=== PATIENT | male | born 1955 | race Caucasian/White ===

== ENCOUNTER 2020-04-29 14:01 | Outpatient (REF) | payer MEDICARE, MEDICAID, SELFPAY | END 2020-04-29 14:02 | disposition home or self-care (01) | LOC: HO.LNP 14:01 | PROVIDERS: Visit Provider Internal Medicine | DX: Z20.828 Contact with and (suspected) exposure to other viral communicable diseases (principal) | CPT/HCPCS: 87635 ==

== ENCOUNTER 2020-06-05 10:27 | Outpatient (REF) | payer MEDICARE, MEDICAID, SELFPAY ==
[2020-06-05 11:19] LABS: MANUAL DIFF FLAG NO
[2020-06-05 11:29] LABS: Basophils Absolute Auto 0.1 X10*3/uL (0.0-0.2); Basophils Percent Auto 0.7 % (0-2); Eosinophils Absolute Auto 0.3 X10*3/uL (0.0-0.4); Eosinophils Percent Auto 2.2 % (0-4); Hematocrit 40.7 % (42-52); Hemoglobin 13.5 g/dl (14.0-18.0); Imm Gran Abs Auto 0.04 X10*3/uL (0.00-0.03); Imm Gran Pct Auto 0.3 % (0.0-0.4); Lymphocytes Absolute Auto 3.4 X10*3/uL (1.2-4.9); Lymphocytes Percent Auto 28.2 % (20-40); Mean Corpuscular HGB Conc 33.2 g/dl (31.0-36.0); Mean Corpuscular Hemoglobin 31.7 pg (27.0-33.0); Mean Corpuscular Volume 95.5 fL (80-98); Mean Platelet Volume 10.6 fL (9.4-12.4); Monocytes Percent Auto 8.2 % (2-11); Neutrophils Absolute Auto 7.4 X10*3/uL (2.0-8.3); Neutrophils Percent Auto 60.4 % (45-73); Platelet Count 394 X10*3/uL (160-400); Red Blood Count 4.26 X10*6/uL (4.60-5.80); Red Cell Distribution Width 13.5 % (11.0-16.0); White Blood Count 12.2 X10*3/uL (4.8-10.8)
[2020-06-05 12:13] LABS: Alanine Aminotransferase 10 U/L (0-40); Albumin Level 4.4 g/dL (3.5-5.0); Alkaline Phosphatase 67 U/L (39-117); Anion Gap 12 (12-20); Aspartate Amino Transferase 15 U/L (5-37); Bilirubin Total 0.4 mg/dL (0.0-1.0); Blood Urea Nitrogen 22 mg/dL (9-16); Calcium 9.3 mg/dL (8.4-10.2); Carbon Dioxide 31 mmol/L (22-29); Chloride 102 mmol/L (96-108); Cholesterol 196 mg/dL; Estimated Glomerular Filt Rate > 60; Glucose Fasting 141 mg/dL (60-99); HDL Cholesterol 34 mg/dL; LDL Cholesterol Calculated 137 mg/dl; Potassium 4.5 mmol/l (3.3-5.1); Sodium 140 mmol/L (135-145); Total Protein 7.4 g/dL (6.5-8.0); Triglycerides 129 mg/dL
[2020-06-05 12:46] LABS: Vitamin B12 > 2000 pg/mL (200-900)
[2020-06-05 13:37] LABS: Prostate Specific Antigen < 0.05 ng/mL (<0.05-4.0)
== END 2020-06-05 10:28 | disposition home or self-care (01) ==
LOC: HO.LAB 10:27
PROVIDERS: Visit Provider Internal Medicine
DX: I10 Essential (primary) hypertension (principal); I25.10 Atherosclerotic heart disease of native coronary artery without angina pectoris; E11.9 Type 2 diabetes mellitus without complications
CPT/HCPCS: 36415; 80053; 80061; 82607; 84153; 85025

== ENCOUNTER → 2020-08-06 10:03 | Outpatient (BNVA) | payer MEDICARE, MEDICAID, SELFPAY | PROVIDERS: PCP Internal Medicine; Referring Provider Internal Medicine; Visit Provider Internal Medicine Endocrinology, Diabetes & Metabolism | DX: Z76.89 Persons encountering health services in other specified circumstances (principal) | CPT/HCPCS: Q3014 ==

== ENCOUNTER 2020-09-03 11:16 | Outpatient (REF) | payer MEDICARE, MEDICAID, SELFPAY ==
[2020-09-03 13:56] LABS: Anion Gap 14 (12-20); Blood Urea Nitrogen 15 mg/dL (9-16); Calcium 9.3 mg/dL (8.4-10.2); Carbon Dioxide 33 mmol/L (22-29); Chloride 99 mmol/L (96-108); Estimated Glomerular Filt Rate > 60; Glucose Random 138 mg/dL (60-115); Sodium 141 mmol/L (135-145)
[2020-09-03 13:57] LABS: Estimated Average Glucose 163 mg/dL; Hemoglobin A1c % 7.3 %
== END 2020-09-03 11:17 | disposition home or self-care (01) ==
LOC: HO.10HDL 11:16
PROVIDERS: Visit Provider Internal Medicine
DX: E11.9 Type 2 diabetes mellitus without complications (principal); I25.10 Atherosclerotic heart disease of native coronary artery without angina pectoris; I10 Essential (primary) hypertension
CPT/HCPCS: 36415; 80048; 83036

== ENCOUNTER 2020-09-16 11:05 | Outpatient (REF) | payer MEDICARE, MEDICAID, SELFPAY | END 2020-09-16 11:06 | disposition home or self-care (01) | LOC: HO.LAB 11:05 | PROVIDERS: PCP Internal Medicine; Visit Provider Internal Medicine | DX: Z20.822 Contact with and (suspected) exposure to COVID-19 (principal) | CPT/HCPCS: 36415; C9803; U0003; U0005 ==

== ENCOUNTER → 2020-11-05 10:31 | Outpatient (BNVA) | payer MEDICARE, MEDICAID, SELFPAY | PROVIDERS: PCP Internal Medicine; Visit Provider Internal Medicine Endocrinology, Diabetes & Metabolism | DX: E11.21 Type 2 diabetes mellitus with diabetic nephropathy (principal); E11.42 Type 2 diabetes mellitus with diabetic polyneuropathy; E11.319 Type 2 diabetes mellitus with unspecified diabetic retinopathy without macular edema; I10 Essential (primary) hypertension; E78.5 Hyperlipidemia, unspecified | CPT/HCPCS: 82947; 99212 ==

== ENCOUNTER 2021-03-05 15:48 | Emergency (ER) | payer MEDICARE, MEDICAID, SELFPAY ==
--- NOTE | ~2021-03-05 | XR_ITS ---
EXAMINATION: XR ABDOMEN COMPLETE CLINICAL INDICATION: Obstruction. COMPARISON: None TECHNIQUE: 2 views of the abdomen. FINDINGS: Ostomy device right side of abdomen. No abnormal bowel dilatation. No significant air-fluid levels on the upright view. Nonobstructive bowel pattern. Small volume of scattered stool in the colon. No radiopaque urinary calculi. Transpedicular screws, vertical stabilization bars and disc spacer cages at lower lumbar spine XR/XR abdomen min 2V IMPRESSION: No acute abnormality. No bowel obstruction.
[2021-03-05 16:02] VITALS: BP 154/92; BP 169/82; PULSE 62; PULSE 68; RESP 18; TEMP 36.8; O2SAT 100; O2SAT 99; BMI 26.6
--- NOTE | 2021-03-05 16:04 | ED.ABDPAIN ---
HPI - Abdominal Pain General Chief Complaint: Abdominal Pain Stated Complaint: WEAKNESS Time Seen by Provider: 03/05/21 16:04 Source: patient Mode of arrival: EMS Limitations: no limitations History of Present Illness HPI narrative: Epigastric pain since last night has a history of gastritis. EMS gave the patient zofran. Patient denies being scoped or prior ulceration MD elicited complaint: abdominal pain Pertinent past history: gastritis Onset (ago): week(s) Pain Consistency: constant Location: epigastric Severity: mild Quality: cramping Radiation: none Migration to: no migration Exacerbating factors: eating Associated symptoms: nausea and vomiting Related Data Home Medications Medication Instructions Recorded Confirmed lisinopril 2.5 mg tablet 2.5 mg PO DAILY tab 08/06/20 11/05/20 metoprolol succinate 50 mg 50 mg PO DAILY tab 08/06/20 11/05/20 tablet,extended release 24 hr nifedipine 60 mg tablet,extended 60 mg PO tab 08/06/20 11/05/20 release 24 hr omeprazole 20 mg capsule,delayed 20 mg PO cap 08/06/20 11/05/20 release oxycodone-acetaminophen 5 mg-325 tab PO 08/06/20 11/05/20 mg tablet zolpidem 5 mg tablet 5 mg PO tab 08/06/20 11/05/20 Previous Rx's Medication Instructions Recorded blood sugar diagnostic #100 ea 11/05/20 lancets (OneTouch UltraSoft #100 ea 11/05/20 Lancets) metformin 500 mg tablet,extended 500 mg PO DAILY 30 Days #30 tab 11/05/20 release 24 hr pen needle, diabetic 32 gauge x #50 ea 11/05/2032 simvastatin 40 mg tablet 40 mg PO BEDTIME #90 tab 11/05/20 blood sugar diagnostic (Accu-Chek #100 ea 11/06/20 Vanessa Plus test strp) blood-glucose meter (Accu-Chek #1 ea 11/06/20 Vanessa Plus Meter) lancets (Accu-Chek Fastclix Lancet #100 ea 11/06/20 Drum) Accu-Chek Guide Glucose Meter #1 ea NS 11/13/20 (blood-glucose meter) Accu-Chek Guide test strips (blood #100 ea NS 11/13/20 sugar diagnostic) dulaglutide 1.5 mg/0.5 mL 1.5 mg SUBCUT QWEEK 30 Days #2.5 ml 12/04/20 subcutaneous pen injector (Trulicity) Vivian Guaman U-100 Insulin 100 25 unit SUBCUT QPM 30 Days #15 ml 03/04/21 unit/mL (3 mL) subcutaneous NS (insulin glargine) sucralfate 100 mg/mL oral 10 ml PO BID #1000 ml 03/05/21 suspension (Carafate) Allergies Allergy/AdvReac Type Severity Reaction Status Date / Time No Known Allergies Allergy Verified 03/05/21 16:05 [No Known Allergies*] Review of Systems Constitutional: Reports no additional constitutional complaints Eyes: Reports no additional eye complaints Denies dizziness Cardiovascular: Reports no additional cardiovascular complaints Respiratory: Reports as per HPI Gastrointestinal: Reports no additional gastrointestinal complaints Musculoskeletal: Reports no additional musculoskeletal complaints Skin/Breast: Denies rash Reports system reviewed and no additional complaints, except as documented, Denies dizziness and Denies Sensory deficit (Neuro) Psychiatric: Denies anxiety Physical Exam Vital Signs: Vital Signs: Last Vital Signs Temp 98.9 F 03/05/21 17:25 Pulse 61 03/05/21 18:23 Resp 16 03/05/21 17:25 BP 146/76 H 03/05/21 18:23 Pulse Ox 98 03/05/21 18:23 Body Mass Index 26.6 Const: Other: Patient moaning but not appearing ill Nutritional Appearance: average body habitus Orientation/consciousness: oriented to person and patient oriented x3 Limitations: no limitations HENMT: Head: Yes normal to inspection Ears: external ears normal General nose exam: Normal external nose present Mouth: Normal oral and palatal mucosa present and oropharynx normal Throat: Yes posterior oropharynx normal Eyes: General: appearance normal, both eyes and all related structures Neck: Other: supple Neck: Yes normal visual inspection Chest: Chest palpation & inspection: normal inspection of the chest Resp: Auscultation: clear to auscultation bilaterally Cardio: Jugular venous distension: no JVD Rate: regular rate Rhythm: regular rhythm Heart sounds: S1 normal heart sound present and S2 normal heart sound present GI: Other: soft abdomen but having epigastric pain Auscultation: normal bowel sounds : General: Yes no CVA tenderness Back/Spine/Pelvis: Back: no CVA tenderness Skin: General skin exam: no rashes or lesions noted Neuro: General: oriented to person and patient oriented x3 Cranial nerves: Yes CN's II-XII intact bilaterally Motor exam (neuro): 5/5 motor strength present throughout Sensory Exam: No Sensory deficit (Neuro) Extrem: General: Yes normal to inspection Psych: Appearance: grossly normal Course Reevaluation(s) Reevaluation #1: patient with labs at baseline, no obstruction, no liver elevation will dc on carafate for gastritis Time: 19:06 MDM - Abdominal Pain Lab Data Result diagrams: 03/05/21 17:46 03/05/21 17:46 Labs: Lab Results 03/05/21 03/05/21 03/05/21 Range/Units 16:13 17:46 17:46 WBC 12.1 H (4.8-10.8) X10*3/uL RBC 4.02 L (4.60-5.80) X10*6/uL Hgb 13.1 L (14.0-18.0) g/dl Hct 36.3 L (42-52) % MCV 90.3 (80-98) fL MCH 32.6 (27.0-33.0) pg MCHC 36.1 H (31.0-36.0) g/dl RDW 13.1 (11.0-16.0) % Plt Count 281 D (160-400) X10*3/uL MPV 10.4 (9.4-12.4) fL Immature Gran % (Auto) 0.4 (0.0-0.4) % Neut % (Auto) 83.7 H (45-73) % Lymph % (Auto) 11.6 L (20-40) % [place] % (Auto) 4.1 (2-11) % Eos % (Auto) 0.0 (0-4) % Baso % (Auto) 0.2 (0-2) % Lymph # (Auto) 1.4 (1.2-4.9) X10*3/uL [place] # (Auto) 0.5 (0.1-1.2) X10*3/uL Eos # (Auto) 0.0 (0.0-0.4) X10*3/uL Baso # (Auto) 0.0 (0.0-0.2) X10*3/uL Abs Immat Gran (auto) 0.05 H (0.00-0.03) X10*3/uL Absolute Neuts (auto) 10.1 H (2.0-8.3) X10*3/uL Absolute Nucleated RBC 0.000 (0.0-0.012) X10*3/uL Nucleated RBC % (auto) 0.0 (0.0-0.2) /100WBC Sodium 139 (135-145) mmol/L Potassium 3.2 L D (3.3-5.1) mmol/L Chloride 101 (96-108) mmol/L Carbon Dioxide 25 (22-29) mmol/L Anion Gap 16 (12-20) BUN 16 (9-16) mg/dL Creatinine 1.04 (0.5-1.4) mg/dL Estim Creat Clear Calc 72.7 Estimated GFR > 60 POC Glucose 159 H (60-115) mg/dL Random Glucose 105 (60-115) mg/dL Calcium 9.6 (8.4-10.2) mg/dL Total Bilirubin 0.6 (0.0-1.0) mg/dL Direct Bilirubin 0.2 (0.0-0.5) mg/dL AST 13 (5-37) U/L ALT 9 (0-40) U/L Alkaline Phosphatase 74 (39-117) U/L Total Protein 7.7 (6.5-8.0) g/dL Albumin 4.4 (3.5-5.0) g/dL Lipase 14 (8-78) U/L Imaging Data Abdominal x-ray: My impression: no obstruction Discharge Plan Discharge Clinical Impression: Gastritis Qualifiers: Gastritis type: other gastritis Chronicity: chronic Gastritis bleeding: without bleeding Qualified Code(s): K29.50 - Unspecified chronic gastritis without bleeding Patient Disposition: Home, Self-Care Instructions: Gastritis (ED) Prescriptions: New sucralfate [Carafate] 100 mg/mL suspension 10 ml PO BID Qty: 1000 RF: 0 No Action (DME) Accu-Chek Vanessa Plus test strp Strip See Rx Instructions .MEDSUPPLY Qty: 100 RF: 6 (DME) lancets [Accu-Chek Fastclix Lancet Drum] Misc See Rx Instructions .MEDSUPPLY Qty: 100 RF: 6 (DME) blood-glucose meter [Accu-Chek Vanessa Plus Meter] Misc See Rx Instructions .ROUTE .MEDSUPPLY Qty: 1 RF: 0 (DME) blood-glucose meter [Accu-Chek Guide Glucose Meter] Misc See Rx Instructions .ROUTE .MEDSUPPLY Qty: 1 RF: 0 (DME) Accu-Chek Guide test strips Strip See Rx Instructions .ROUTE .MEDSUPPLY Qty: 100 RF: 6 Trulicity 1.5 mg/0.5 mL pen injector 1.5 mg subcut QWEEK 30 Days Qty: 2.5 RF: 6 Basaglar KwikPen U-100 Insulin 100 unit/mL (3 mL) insulin pen 25 unit subcut QPM 30 Days Qty: 15 RF: 4 oxycodone-acetaminophen 5-325 mg tablet PO RF: 0 lisinopril 2.5 mg tablet 2.5 mg PO DAILY RF: 0 metoprolol succinate 50 mg tablet extended release 24 hr 50 mg PO DAILY RF: 0 nifedipine 60 mg tablet extended release 24hr 60 mg PO RF: 0 omeprazole 20 mg capsule,delayed release(DR/EC) 20 mg PO RF: 0 zolpidem 5 mg tablet 5 mg PO RF: 0 (DME) blood sugar diagnostic Strip See Rx Instructions .ROUTE .MEDSUPPLY Qty: 100 RF: 6 (DME) lancets [OneTouch UltraSoft Lancets] Misc See Rx Instructions .ROUTE .MEDSUPPLY Qty: 100 RF: 6 metformin 500 mg tablet extended release 24 hr 500 mg PO DAILY 30 Days Qty: 30 RF: 6 (DME) pen needle, diabetic 32 gauge x 5/32 needle See Rx Instructions ea subcut .MEDSUPPLY Qty: 50 RF: 5 simvastatin 40 mg tablet 40 mg PO BEDTIME Qty: 90 RF: 1 PMFSH Past Medical History Medical History Diabetes type 2, controlled Diabetic nephropathy associated with type 2 diabetes mellitus Diabetic polyneuropathy associated with type 2 diabetes mellitus Diabetic retinopathy associated with type 2 diabetes mellitus Dyslipidemia Hypertension Surgical History History of back surgery Hx of bladder cancer Hx of ileostomy Hx of nephrostomy Family History Family History Father No problems noted. Mother No problems noted. Social History Social History Patient Tobacco Use Status: Never used Tobacco Use of substances other than those prescribed or required for medical reasons: No Advance Directives: No Advance Directives Information Provided: Yes
[2021-03-05 16:17] LABS: Glucose, Whole Blood 159 mg/dL (60-115)
[2021-03-05] MEDS: 0.9 % Sodium Chloride 1,000 ML 999 ML IVCONT ×2 (16:30→17:48)
[2021-03-05] MEDS: Lidocaine HCl Viscous 2 % 15 ML SOLUTION MUCOUS MEM (17:03)
[2021-03-05] MEDS: PHENobarb/Hyoscy/Atropine/Scop 10 ML ELIXIR PO (17:03)
[2021-03-05] MEDS: Magnesium Hydrox/Alum Hydrox 30 ML ORAL.SUSP PO (17:03)
[2021-03-05] MEDS: Pantoprazole Sodium 40 MG/10 ML VIAL IVPUSH (17:04)
[2021-03-05 17:25] VITALS: BP 159/99; PULSE 67; RESP 16; TEMP 37.2; O2SAT 100
[2021-03-05 17:53] LABS: Basophils Percent Auto 0.2 % (0-2); Mean Platelet Volume 10.4 fL (9.4-12.4); Neutrophils Percent Auto 83.7 % (45-73); PLT CLUMP 1; Red Cell Distribution Width 13.1 % (11.0-16.0); SCAN SMEAR FLAG 1
[2021-03-05 17:55] LABS: Hematocrit 36.3 % (42-52); Hemoglobin 13.1 g/dl (14.0-18.0); Imm Gran Abs Auto 0.05 X10*3/uL (0.00-0.03); Imm Gran Pct Auto 0.4 % (0.0-0.4); Lymphocytes Absolute Auto 1.4 X10*3/uL (1.2-4.9); Lymphocytes Percent Auto 11.6 % (20-40); Mean Corpuscular HGB Conc 36.1 g/dl (31.0-36.0); Mean Corpuscular Hemoglobin 32.6 pg (27.0-33.0); Mean Corpuscular Volume 90.3 fL (80-98); Monocytes Absolute Auto 0.5 X10*3/uL (0.1-1.2); Monocytes Percent Auto 4.1 % (2-11); Neutrophils Absolute Auto 10.1 X10*3/uL (2.0-8.3); Platelet Count 281 X10*3/uL (160-400); Red Blood Count 4.02 X10*6/uL (4.60-5.80); White Blood Count 12.1 X10*3/uL (4.8-10.8)
[2021-03-05] MEDS: Dicyclomine HCl 10 MG CAPSULE PO (18:21)
[2021-03-05] MEDS: Sucralfate Oral Suspension 1 GM/10 ML ORAL.SUSP PO (18:21)
[2021-03-05 18:23] VITALS: BP 146/76; PULSE 61; O2SAT 98
[2021-03-05 18:32] LABS: Alanine Aminotransferase 9 U/L (0-40); Albumin Level 4.4 g/dL (3.5-5.0); Alkaline Phosphatase 74 U/L (39-117); Anion Gap 16 (12-20); Aspartate Amino Transferase 13 U/L (5-37); Bilirubin Direct 0.2 mg/dL (0.0-0.5); Bilirubin Total 0.6 mg/dL (0.0-1.0); Blood Urea Nitrogen 16 mg/dL (9-16); Calcium 9.6 mg/dL (8.4-10.2); Carbon Dioxide 25 mmol/L (22-29); Chloride 101 mmol/L (96-108); Creatinine Clr Calc Pharmacy 72.7; Estimated Glomerular Filt Rate > 60; Glucose Random 105 mg/dL (60-115); Lipase 14 U/L (8-78); Potassium 3.2 mmol/L (3.3-5.1); Sodium 139 mmol/L (135-145); Total Protein 7.7 g/dL (6.5-8.0)
== END 2021-03-05 19:31 | disposition home or self-care (01) ==
PROVIDERS: Emergency Provider Emergency Medicine; PCP Internal Medicine
DX: K29.50 Unspecified chronic gastritis without bleeding (principal); R10.13 Epigastric pain; Z79.899 Other long term (current) drug therapy
CPT/HCPCS: 36415; 74019; 80048; 80076; 82947; 83690; 85025; 96361; 96374; 99284

== ENCOUNTER → 2021-03-20 12:46 | Outpatient (BNVA) | payer MEDICARE, MEDICAID, SELFPAY | PROVIDERS: PCP Internal Medicine; Visit Provider Urology | DX: E11.69 Type 2 diabetes mellitus with other specified complication (principal); N52.1 Erectile dysfunction due to diseases classified elsewhere; C67.9 Malignant neoplasm of bladder, unspecified | CPT/HCPCS: 99202 ==

== ENCOUNTER 2021-04-07 10:29 | Outpatient (REF) | payer MEDICARE, SELFPAY | END 2021-04-07 10:30 | disposition home or self-care (01) | LOC: HO.LAB 10:29 | PROVIDERS: Visit Provider Internal Medicine | DX: Z20.822 Contact with and (suspected) exposure to COVID-19 (principal) | CPT/HCPCS: C9803; U0003; U0005 ==

== ENCOUNTER 2021-04-14 12:27 | Outpatient (REF) | payer MEDICARE, MEDICAID, SELFPAY | END 2021-04-14 12:28 | disposition home or self-care (01) | LOC: HO.LAB 12:27 | PROVIDERS: PCP Internal Medicine; Visit Provider Internal Medicine | DX: Z20.822 Contact with and (suspected) exposure to COVID-19 (principal) | CPT/HCPCS: C9803; U0003; U0005 ==

== ENCOUNTER 2021-05-25 13:05 | Emergency (ER) | payer MEDICARE, MEDICAID, SELFPAY ==
--- NOTE | ~2021-05-25 | CT_ITS ---
EXAMINATION: CT ABDOMEN AND PELVIS WITHOUT CONTRAST CLINICAL INFORMATION: Abdominal pain with nausea and vomiting and leukocytosis COMPARISON: CT abdomen pelvis 03/20/2019 TECHNIQUE: Multidetector volumetric imaging was performed from the superior aspect of the liver through the pubic symphysis. Sagittal and coronal reformatted images were obtained on the technologist's workstation. This CT examination was performed using dose optimization techniques as appropriate, variously including the following: *Automated exposure control *Adjustment of mA and/or kV according to patient size (this includes techniques or standardized protocols for targeted exams where dose is matched to indication/reason for exam; i.e. extremities or head) *Use of iterative reconstruction technique DLP: 489 mGy-cm FINDINGS: LUNG BASES: The visualized lung bases are unremarkable. LIVER, GALLBLADDER, AND BILIARY TREE: The liver is normal in size, shape, and attenuation. No focal hepatic lesion or biliary ductal dilatation is present. The gallbladder is unremarkable with no evidence of radiopaque gallstones, gallbladder wall thickening, or obvious pericholecystic inflammatory changes. PANCREAS: Unremarkable. SPLEEN: Unremarkable. ADRENAL GLANDS: Unremarkable. 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 There is mild bilateral pelvocaliectasis and mild ureterectasis which is increased slightly since the prior study. For example, a right lower pole infundibulum had measured about 7 mm now measuring 10 mm. A left lower pole infundibulum that had measured 10 mm now measures 11 mm. No definite calculi are seen in the renal collecting systems although vascular calcifications are present. The kidneys are normal in size, shape, and attenuation. No renal masses are seen. There is mild nonspecific perinephric stranding. GASTROINTESTINAL TRACT: Small hiatal hernia is present. The small and large bowel are unremarkable aside from postoperative changes related to ileal loop. There is no evidence of bowel obstruction. The appendix is unremarkable. ABDOMINAL WALL: No hernia is seen. Please see discussion above regarding ureterostomy LYMPH NODES: No retroperitoneal lymphadenopathy. VASCULAR: Calcific atherosclerotic changes present in the aorta and iliofemoral vessels without aneurysm. PELVIC VISCERA: Surgically absent OSSEOUS STRUCTURES: Degenerative changes present in the spine. Again seen are posterior pedicular screws present at L4 and S1 with interbody disc devices at L4-L5 and L5-S1. CT/CT abdomen pelvis wo con IMPRESSION: 1. An acute cause for the patient's abdominal pain, nausea, vomiting and elevated white count has not been found with certainty. 2. There is some minimal increase in some chronic collecting system dilatation of questionable significance.
[2021-05-25 13:13] VITALS: BP 127/83; PULSE 78; O2SAT 95
[2021-05-25 13:15] VITALS: BP 153/64; PULSE 78; RESP 16; O2SAT 98; BMI 27.0
[2021-05-25 14:56] LABS: Basophils Absolute Auto 0.1 X10*3/uL (0.0-0.2); Basophils Percent Auto 0.2 % (0-2); Hematocrit 42.7 % (42.0-52.0); Hemoglobin 14.7 g/dl (14.0-18.0); Imm Gran Abs Auto 0.13 X10*3/uL (0.00-0.03); Imm Gran Pct Auto 0.5 % (0.0-0.4); Lymphocytes Absolute Auto 1.7 X10*3/uL (1.2-4.9); Lymphocytes Percent Auto 7.2 % (20-40); MANUAL DIFF FLAG SCAN; Mean Corpuscular HGB Conc 34.4 g/dl (31.0-36.0); Mean Corpuscular Hemoglobin 32.2 pg (27.0-33.0); Mean Corpuscular Volume 93.4 fL (80.0-98.0); Mean Platelet Volume 9.7 fL (9.4-12.4); Monocytes Absolute Auto 1.3 X10*3/uL (0.1-1.2); Monocytes Percent Auto 5.6 % (2-11); Neutrophils Absolute Auto 20.42 x10*3/uL (2.0-8.3); Neutrophils Percent Auto 86.5 % (45-73); Platelet Count 376 X10*3/uL (160-400); Red Blood Count 4.57 X10*6/uL (4.60-5.80); Red Cell Distribution Width 13.6 % (11.0-16.0); SCAN SMEAR FLAG 1; White Blood Count 23.6 X10*3/uL (4.8-10.8)
[2021-05-25 15:12] LABS: Alanine Aminotransferase 8 U/L (0-40); Albumin Level 4.7 g/dL (3.5-5.0); Alkaline Phosphatase 88 U/L (39-117); Anion Gap 16 (12-20); Aspartate Amino Transferase 11 U/L (5-37); Bilirubin Total 0.5 mg/dL (0.0-1.0); Blood Urea Nitrogen 24 mg/dL (9-16); Calcium 10.1 mg/dL (8.4-10.2); Carbon Dioxide 30 mmol/L (22-29); Chloride 98 mmol/L (96-108); Creatinine Clr Calc Pharmacy 53.3; Estimated Glomerular Filt Rate 52; Glucose Random 162 mg/dL (60-115); Potassium 4.2 mmol/L (3.3-5.1); Sodium 140 mmol/L (135-145); Total Protein 8.4 g/dL (6.5-8.0)
[2021-05-25 15:14] LABS: COVID-19 Test Negative (Negative)
[2021-05-25 15:18] LABS: SLIDE REVIEW VERIFIED
[2021-05-25 16:10] VITALS: BP 114/68; PULSE 104; RESP 18; TEMP 37.7; O2SAT 96
--- NOTE | 2021-05-25 16:20 | ED.NAVMDI ---
HPI - Nausea/Vomiting/Diarrhea General Chief complaint: Nausea/Vomiting/Diarrhea Stated complaint: abd pain Time Seen by Provider: 05/25/21 16:15 Source: patient, family (Spouse) and EMS Mode of arrival: EMS Limitations: no limitations History of Present Illness HPI Narrative: 65-year-old male history of gastritis, came in with epigastric pain for few days, with vomiting, patient is known history of gastritis, patient decline of having upper GI endoscopy, patient is complaining of epigastric pain and right-sided abdominal pain, patient also for the past couple days been having loose stool bowel movement with no bleeding, patient with good appetite but unable to eat because of the discomfort in the epigastric pain. Related Data Previous Rx's Medication Instructions Recorded blood sugar diagnostic #100 ea 11/05/20 pen needle, diabetic 32 gauge x #50 ea 11/05/20 blood sugar diagnostic (Accu-Chek #100 ea 11/06/20 Vanessa Plus test strp) blood-glucose meter (Accu-Chek #1 ea 11/06/20 Vanessa Plus Meter) lancets (Accu-Chek Fastclix Lancet #100 ea 11/06/20 Drum) Accu-Chek Guide Glucose Meter #1 ea NS 11/13/20 (blood-glucose meter) Accu-Chek Guide test strips (blood #100 ea NS 11/13/20 sugar diagnostic) lancets (OneTouch UltraSoft #100 ea 03/24/21 Lancets) Vivian Guaman U-100 Insulin 100 25 unit SUBCUT QPM 30 Days #8 05/12/21 unit/mL (3 mL) subcutaneous syringe NS (insulin glargine) dulaglutide 1.5 mg/0.5 mL 1.5 mg SUBCUT QWEEK 90 Days #6.5 ml 05/12/21 subcutaneous pen injector (Trulicity) lisinopril 2.5 mg tablet 2.5 mg PO DAILY 90 Days #90 tab 05/12/21 metformin 500 mg tablet,extended 500 mg PO DAILY 90 Days #90 tab 05/12/21 release 24 hr metoprolol succinate 50 mg 50 mg PO DAILY 90 Days #90 tab 05/12/21 tablet,extended release 24 hr nifedipine 60 mg tablet,extended 60 mg PO DAILY 90 Days #90 tab 05/12/21 release 24 hr omeprazole 20 mg capsule,delayed 20 mg PO DAILY 90 Days #90 cap 05/12/21 release oxycodone-acetaminophen 5 mg-325 1 tab PO BID PRN 30 Days #60 tab 05/12/21 mg tablet simvastatin 40 mg tablet 40 mg PO BEDTIME 90 Days #90 tab 05/12/21 sucralfate 1 gram tablet (Carafate) 1 g PO BID 90 Days #180 tab 05/12/21 zolpidem 5 mg tablet 5 mg PO BEDTIME 90 Days #90 tab 05/12/21 Allergies Allergy/AdvReac Type Severity Reaction Status Date / Time No Known Allergies Allergy Verified 05/12/21 15:38 [No Known Allergies*] Review of Systems Review of Systems: All other systems are reviewed and are negative Constitutional: Reports as per HPI and Reports no additional constitutional complaints Eyes: Reports as per HPI and Reports no additional eye complaints Reports system reviewed and no additional complaints, except as documented Cardiovascular: Reports as per HPI and Reports no additional cardiovascular complaints Respiratory: Reports as per HPI and Reports no additional respiratory complaints Gastrointestinal: Reports as per HPI and Reports no additional gastrointestinal complaints Genitourinary: Reports no additional female genitourinary complaints Musculoskeletal: Reports no additional musculoskeletal complaints Skin/Breast: Reports system reviewed and no additional complaints, except as docu Psychiatric: Reports no additional psychiatric complaints Endocrine: Reports no additional endocrine complaints Hematologic/Lymphatic: Reports no additional hematologic/lymphatic complaints Allergic/Immunologic: Reports no additional allergic/immunologic complaints Reports system reviewed and no additional complaints, except as documented and Reports Abnormal speech present [facility] Past Medical History Medical History Diabetes type 2, controlled Diabetic nephropathy associated with type 2 diabetes mellitus Diabetic polyneuropathy associated with type 2 diabetes mellitus Diabetic retinopathy associated with type 2 diabetes mellitus Dyslipidemia Hypertension Surgical History History of back surgery History of lumbar fusion Hx of bladder cancer Hx of ileostomy Hx of nephrostomy Family History Family History Father No problems noted. Mother No problems noted. Social History Social History Housing: Apartment Alcohol intake: never Patient Tobacco Use Status: Former Tobacco user Years Smoked: quit 2010 Second Hand Smoke Exposure: Yes Use of substances other than those prescribed or required for medical reasons: No Advance Directives: No Advance Directives Information Provided: No service: No Current occupational status: disabled Physical Exam Vital Signs: Vital Signs: Last Vital Signs Temp 100.0 F 05/25/21 18:40 Pulse 85 05/25/21 18:40 Resp 18 05/25/21 18:40 BP 123/63 05/25/21 18:40 Pulse Ox 95 05/25/21 18:40 Body Mass Index 27.0 Vital signs have been reviewed as appeared to be correct. Blood pressure normal. Heart rate is elevated Respiration rate normal. Temperature normal. Oxygen saturation normal. Appearance: Alert. Oriented X3. No acute distress. Head: Normal external exam. Normocephalic. Atraumatic. No Grace signs noted. No raccoon eyes noted Eyes: PERRLA. EOMI. Conjunctiva and sclera normal. Eyelids normal. ENT: TM's Normal. Pharynx normal. Uvula midline. Moist mucous membranes. No trismus noted. No drooling noted. No muffled voice noted. Neck: Normal inspection. Neck supple. FROM. No adenopathy. Thyroid Normal. No meningeal signs. No neck mass noted. CVS: Normal heart rate and rhythm. Heart sound normal. No murmurs noted. Pulses normal throughout. Respiratory: No respiratory distress. Painless inspiration. Breath sounds normal. No wheezes/rales/rhonchi noted. Chest nontender. No accessory muscle usage noted or decreased air movement noted. Abdomen: Soft, mild tenderness in the epigastric area, no rebound tenderness, no guarding. Bowel sounds normal in all 4 quadrants. No distention noted. No organomegaly noted. No visible injury noted. Right-sided nephrostomy tube is intact. Back: No CVA tenderness. Full range of motion noted. Skin: Skin warm and dry. Normal skin color. Normal skin turgor. No rashes/lesions/lacerations noted. Extremities: No lower extremity edema. Extremities exhibit normal range of motion. Extremities nontender. Neuro: Oriented X 3. Cranial nerve exam: II-XII are grossly intact No motor deficit. No sensory deficit. Reflexes normal. Course Course Course Narrative: Assessment and plan. 65-year-old male came in for a day of epigastric abdominal pain, no nausea or vomiting, patient in the emergency department received Pepcid in the emergency department, and Zofran with IV fluid hydration, patient now feels better able to tolerate p.o. intake, patient has a low-grade fever of 100, and leukocytosis. CT of the abdomen pelvis has no explanation of the patient's symptoms, patient has nephrostomy tube which is only way to collect urine which is more than likely to be contaminated, clinically no obvious source of patient's leukocytosis or low-grade fever, patient is feeling better, able to tolerate p.o. intake, patient was offered overnight observation in the hospital but would like to go home and follow up with his doctors. MDM - Nausea/Vomiting/Diarrhea Medical Records Attestation: I reviewed the patient's medical records. Lab Data Attestation: I reviewed the patient's lab results. Result diagrams: 05/25/21 14:50 05/25/21 14:50 Labs: Lab Results 05/25/21 05/25/21 05/25/21 Range/Units 14:50 14:50 14:50 WBC 23.6 H (4.8-10.8) X10*3/uL RBC 4.57 L (4.60-5.80) X10*6/uL Hgb 14.7 (14.0-18.0) g/dl Hct 42.7 (42.0-52.0) % MCV 93.4 (80.0-98.0) fL MCH 32.2 (27.0-33.0) pg MCHC 34.4 (31.0-36.0) g/dl RDW 13.6 (11.0-16.0) % Plt Count 376 (160-400) X10*3/uL MPV 9.7 (9.4-12.4) fL Immature Gran % (Auto) 0.5 H (0.0-0.4) % Neut % (Auto) 86.5 H (45-73) % Lymph % (Auto) 7.2 L (20-40) % [place] % (Auto) 5.6 (2-11) % Eos % (Auto) 0.0 (0-4) % Baso % (Auto) 0.2 (0-2) % Lymph # (Auto) 1.7 (1.2-4.9) X10*3/uL [place] # (Auto) 1.3 H (0.1-1.2) X10*3/uL Eos # (Auto) 0.0 (0.0-0.4) X10*3/uL Baso # (Auto) 0.1 (0.0-0.2) X10*3/uL Abs Immat Gran (auto) 0.13 H (0.00-0.03) X10*3/uL Absolute Neuts (auto) 20.42 H (2.0-8.3) x10*3/uL Absolute Nucleated RBC 0.000 (0.0-0.012) X10*3/uL Nucleated RBC % (auto) 0.0 (0.0-0.2) /100WBC Smear Tech's Comments VERIFIED Sodium 140 (135-145) mmol/L Potassium 4.2 D (3.3-5.1) mmol/L Chloride 98 (96-108) mmol/L Carbon Dioxide 30 H (22-29) mmol/L Anion Gap 16 (12-20) BUN 24 H (9-16) mg/dL Creatinine 1.37 (0.5-1.4) mg/dL Estim Creat Clear Calc 53.3 Estimated GFR 52 Random Glucose 162 H D (60-115) mg/dL Calcium 10.1 (8.4-10.2) mg/dL Total Bilirubin 0.5 (0.0-1.0) mg/dL AST 11 (5-37) U/L ALT 8 (0-40) U/L Alkaline Phosphatase 88 (39-117) U/L Total Protein 8.4 H (6.5-8.0) g/dL Albumin 4.7 (3.5-5.0) g/dL COVID-19 (CECILE) Negative (Negative) COVID-19 Clin Com See Note Imaging Data CT scan - abdomen: Radiologist's impression: 1.? An acute cause for the patient's abdominal pain, nausea, vomiting and elevated white count has not been found with certainty. 2.? There is some minimal increase in some chronic collecting system dilatation of questionable significance. Discharge Plan Discharge Clinical Impression: Abdominal pain, Leukocytosis Patient Disposition: Home, Self-Care Instructions: Abdominal Pain (ED) Additional Instructions: Return to the ED if he have fever or chills. Seek immediate medical attention for abdominal pain. Prescriptions: No Action (DME) Accu-Chek Vanessa Plus test strp Strip See Rx Instructions .MEDSUPPLY Qty: 100 RF: 6 (DME) lancets [Accu-Chek Fastclix Lancet Drum] Misc See Rx Instructions .MEDSUPPLY Qty: 100 RF: 6 (DME) blood-glucose meter [Accu-Chek Vanessa Plus Meter] Misc See Rx Instructions .ROUTE .MEDSUPPLY Qty: 1 RF: 0 (DME) blood-glucose meter [Accu-Chek Guide Glucose Meter] Misc See Rx Instructions .ROUTE .MEDSUPPLY Qty: 1 RF: 0 (DME) Accu-Chek Guide test strips Strip See Rx Instructions .ROUTE .MEDSUPPLY Qty: 100 RF: 6 (DME) lancets [OneTouch UltraSoft Lancets] Misc See Rx Instructions .ROUTE .MEDSUPPLY Qty: 100 RF: 6 Basaglar KwikPen U-100 Insulin 100 unit/mL (3 mL) insulin pen 25 unit subcut QPM 30 Days Qty: 8 RF: 3 Trulicity 1.5 mg/0.5 mL pen injector 1.5 mg subcut QWEEK 90 Days Qty: 6.5 RF: 3 lisinopril 2.5 mg tablet 2.5 mg PO DAILY 90 Days Qty: 90 RF: 3 metformin 500 mg tablet extended release 24 hr 500 mg PO DAILY 90 Days Qty: 90 RF: 3 metoprolol succinate 50 mg tablet extended release 24 hr 50 mg PO DAILY 90 Days Qty: 90 RF: 3 nifedipine 60 mg tablet extended release 24hr 60 mg PO DAILY 90 Days Qty: 90 RF: 3 omeprazole 20 mg capsule,delayed release(DR/EC) 20 mg PO DAILY 90 Days Qty: 90 RF: 3 simvastatin 40 mg tablet 40 mg PO BEDTIME 90 Days Qty: 90 RF: 3 sucralfate [Carafate] 1 gram tablet 1 g PO BID 90 Days Qty: 180 RF: 3 zolpidem 5 mg tablet 5 mg PO BEDTIME 90 Days Qty: 90 RF: 0 oxycodone-acetaminophen 5-325 mg tablet 1 tab PO BID PRN (Reason: pain) 30 Days Qty: 60 RF: 0 (DME) blood sugar diagnostic Strip See Rx Instructions .ROUTE .MEDSUPPLY Qty: 100 RF: 6 (DME) pen needle, diabetic 32 gauge x 5/32 needle See Rx Instructions ea subcut .MEDSUPPLY Qty: 50 RF: 5 Referrals: Clare Benitez MD [Physician] - 2 days Po,Yue Dasilva MD [Primary Care Provider] - 2 days
[2021-05-25] MEDS: 0.9 % Sodium Chloride 1,000 ML 999 ML IVCONT (16:24)
[2021-05-25] MEDS: Famotidine/PF 20 MG/2 ML VIAL IVPUSH (16:27)
[2021-05-25] MEDS: ondansetron HCL 4 MG/2 ML VIAL IVPUSH (16:27)
[2021-05-25] MEDS: Lidocaine HCl Viscous 2 % 15 ML SOLUTION MUCOUS MEM (16:27)
[2021-05-25 18:40] VITALS: BP 123/63; PULSE 85; RESP 18; TEMP 37.8; O2SAT 95
[2021-05-25] MEDS: Acetaminophen 325 MG TABLET 650 MG PO (19:34)
== END 2021-05-25 19:45 | disposition home or self-care (01) ==
PROVIDERS: Emergency Provider Emergency Medicine; PCP Internal Medicine
DX: R10.13 Epigastric pain (principal); D72.829 Elevated white blood cell count, unspecified; R11.2 Nausea with vomiting, unspecified; R19.7 Diarrhea, unspecified; E11.9 Type 2 diabetes mellitus without complications; I10 Essential (primary) hypertension; E78.5 Hyperlipidemia, unspecified; Z20.822 Contact with and (suspected) exposure to COVID-19; Z79.4 Long term (current) use of insulin; Z79.899 Other long term (current) drug therapy
CPT/HCPCS: 36415; 74176; 80053; 85025; 87635; 96361; 96374; 96375; 99284; J2405

== ENCOUNTER 2021-05-26 10:59 | Outpatient (REF) | payer MEDICARE, SELFPAY ==
--- NOTE | ~2021-05-26 | XR_ITS ---
EXAMINATION: XR BILATERAL HANDS XR BILATERAL KNEES XR LUMBAR SPINE CLINICAL INFORMATION: Pain. COMPARISON: Hand studies of 08/23/2015. 03/03/2016 lumbar spine. TECHNIQUE: AP and lateral views of each knee. 4 views of the lumbar spine. 3 views of each hand. FINDINGS: Right Hand: Views of the right hand demonstrate patient to be status post 5th metacarpal fracture. There is narrowing of the 5th carpometacarpal joint. There is significant narrowing of the 1st carpometacarpal joint with degenerative spurring. Findings are essentially unchanged from previous examination of 08/23/2015. Subchondral cyst formation is seen involving the 2nd and 3rd metacarpal heads. Marginal spurring is seen involving the 1st and 2nd distal interphalangeal joints. There is mild spurring base of the 3rd proximal phalanx, most likely posttraumatic. No acute fracture or dislocation is evident. Left Hand: Views of the left hand demonstrate significant degenerative change of the 1st carpometacarpal joint with prominent spurring. No acute fracture or dislocation is evident. Subchondral cyst formation is seen involving the head of the 3rd metacarpal. There is mild marginal joint space spurring of the 2nd and 3rd distal interphalangeal joints. Left Knee: AP and lateral views of the left knee do not demonstrate any evidence of acute fracture or dislocation. Knee joint spaces are maintained. No effusion is seen. Vascular calcifications present. Right Knee: AP and lateral views of the right knee do not demonstrate any evidence of acute fracture or dislocation. Knee joint spaces are maintained. There is some mild spurring of the superior patella site of insertion of the quadriceps tendon. Arterial vascular calcifications present. Lumbar Spine: Views of the lumbar spine demonstrate 5 [id number] lumbar vertebrae. There is pedicle screw and dong fixation L4 and S1 with disc spaces seen at the L4-L5 and L5-S1 spaces. The hardware appears intact. No acute fracture is appreciated. There is disc space narrowing with spurring present L1-L4. There is some spurring of the sacroiliac joints without evidence of fusion or widening. Patient is status post previous right abdominal surgery. XR/XR knee RT 2V IMPRESSION: No significant change in degenerative change of the hands as described above. No significant bony abnormality or effusion of the knees identified. Stable postoperative change of the lumbar spine with hardware appearing intact. No evidence of acute fracture. Multilevel degenerative disc disease with spurring.
--- NOTE | ~2021-05-26 | XR_ITS ---
EXAMINATION: XR BILATERAL HANDS XR BILATERAL KNEES XR LUMBAR SPINE CLINICAL INFORMATION: Pain. COMPARISON: Hand studies of 08/23/2015. 03/03/2016 lumbar spine. TECHNIQUE: AP and lateral views of each knee. 4 views of the lumbar spine. 3 views of each hand. FINDINGS: Right Hand: Views of the right hand demonstrate patient to be status post 5th metacarpal fracture. There is narrowing of the 5th carpometacarpal joint. There is significant narrowing of the 1st carpometacarpal joint with degenerative spurring. Findings are essentially unchanged from previous examination of 08/23/2015. Subchondral cyst formation is seen involving the 2nd and 3rd metacarpal heads. Marginal spurring is seen involving the 1st and 2nd distal interphalangeal joints. There is mild spurring base of the 3rd proximal phalanx, most likely posttraumatic. No acute fracture or dislocation is evident. Left Hand: Views of the left hand demonstrate significant degenerative change of the 1st carpometacarpal joint with prominent spurring. No acute fracture or dislocation is evident. Subchondral cyst formation is seen involving the head of the 3rd metacarpal. There is mild marginal joint space spurring of the 2nd and 3rd distal interphalangeal joints. Left Knee: AP and lateral views of the left knee do not demonstrate any evidence of acute fracture or dislocation. Knee joint spaces are maintained. No effusion is seen. Vascular calcifications present. Right Knee: AP and lateral views of the right knee do not demonstrate any evidence of acute fracture or dislocation. Knee joint spaces are maintained. There is some mild spurring of the superior patella site of insertion of the quadriceps tendon. Arterial vascular calcifications present. Lumbar Spine: Views of the lumbar spine demonstrate 5 [id number] lumbar vertebrae. There is pedicle screw and dong fixation L4 and S1 with disc spaces seen at the L4-L5 and L5-S1 spaces. The hardware appears intact. No acute fracture is appreciated. There is disc space narrowing with spurring present L1-L4. There is some spurring of the sacroiliac joints without evidence of fusion or widening. Patient is status post previous right abdominal surgery. XR/XR knee LT 2V IMPRESSION: No significant change in degenerative change of the hands as described above. No significant bony abnormality or effusion of the knees identified. Stable postoperative change of the lumbar spine with hardware appearing intact. No evidence of acute fracture. Multilevel degenerative disc disease with spurring.
--- NOTE | ~2021-05-26 | XR_ITS ---
EXAMINATION: XR BILATERAL HANDS XR BILATERAL KNEES XR LUMBAR SPINE CLINICAL INFORMATION: Pain. COMPARISON: Hand studies of 08/23/2015. 03/03/2016 lumbar spine. TECHNIQUE: AP and lateral views of each knee. 4 views of the lumbar spine. 3 views of each hand. FINDINGS: Right Hand: Views of the right hand demonstrate patient to be status post 5th metacarpal fracture. There is narrowing of the 5th carpometacarpal joint. There is significant narrowing of the 1st carpometacarpal joint with degenerative spurring. Findings are essentially unchanged from previous examination of 08/23/2015. Subchondral cyst formation is seen involving the 2nd and 3rd metacarpal heads. Marginal spurring is seen involving the 1st and 2nd distal interphalangeal joints. There is mild spurring base of the 3rd proximal phalanx, most likely posttraumatic. No acute fracture or dislocation is evident. Left Hand: Views of the left hand demonstrate significant degenerative change of the 1st carpometacarpal joint with prominent spurring. No acute fracture or dislocation is evident. Subchondral cyst formation is seen involving the head of the 3rd metacarpal. There is mild marginal joint space spurring of the 2nd and 3rd distal interphalangeal joints. Left Knee: AP and lateral views of the left knee do not demonstrate any evidence of acute fracture or dislocation. Knee joint spaces are maintained. No effusion is seen. Vascular calcifications present. Right Knee: AP and lateral views of the right knee do not demonstrate any evidence of acute fracture or dislocation. Knee joint spaces are maintained. There is some mild spurring of the superior patella site of insertion of the quadriceps tendon. Arterial vascular calcifications present. Lumbar Spine: Views of the lumbar spine demonstrate 5 [id number] lumbar vertebrae. There is pedicle screw and dong fixation L4 and S1 with disc spaces seen at the L4-L5 and L5-S1 spaces. The hardware appears intact. No acute fracture is appreciated. There is disc space narrowing with spurring present L1-L4. There is some spurring of the sacroiliac joints without evidence of fusion or widening. Patient is status post previous right abdominal surgery. XR/XR lumbar spine 2-3V IMPRESSION: No significant change in degenerative change of the hands as described above. No significant bony abnormality or effusion of the knees identified. Stable postoperative change of the lumbar spine with hardware appearing intact. No evidence of acute fracture. Multilevel degenerative disc disease with spurring.
--- NOTE | ~2021-05-26 | XR_ITS ---
EXAMINATION: XR BILATERAL HANDS XR BILATERAL KNEES XR LUMBAR SPINE CLINICAL INFORMATION: Pain. COMPARISON: Hand studies of 08/23/2015. 03/03/2016 lumbar spine. TECHNIQUE: AP and lateral views of each knee. 4 views of the lumbar spine. 3 views of each hand. FINDINGS: Right Hand: Views of the right hand demonstrate patient to be status post 5th metacarpal fracture. There is narrowing of the 5th carpometacarpal joint. There is significant narrowing of the 1st carpometacarpal joint with degenerative spurring. Findings are essentially unchanged from previous examination of 08/23/2015. Subchondral cyst formation is seen involving the 2nd and 3rd metacarpal heads. Marginal spurring is seen involving the 1st and 2nd distal interphalangeal joints. There is mild spurring base of the 3rd proximal phalanx, most likely posttraumatic. No acute fracture or dislocation is evident. Left Hand: Views of the left hand demonstrate significant degenerative change of the 1st carpometacarpal joint with prominent spurring. No acute fracture or dislocation is evident. Subchondral cyst formation is seen involving the head of the 3rd metacarpal. There is mild marginal joint space spurring of the 2nd and 3rd distal interphalangeal joints. Left Knee: AP and lateral views of the left knee do not demonstrate any evidence of acute fracture or dislocation. Knee joint spaces are maintained. No effusion is seen. Vascular calcifications present. Right Knee: AP and lateral views of the right knee do not demonstrate any evidence of acute fracture or dislocation. Knee joint spaces are maintained. There is some mild spurring of the superior patella site of insertion of the quadriceps tendon. Arterial vascular calcifications present. Lumbar Spine: Views of the lumbar spine demonstrate 5 qhx-eue-qnicedo lumbar vertebrae. There is pedicle screw and dong fixation L4 and S1 with disc spaces seen at the L4-L5 and L5-S1 spaces. The hardware appears intact. No acute fracture is appreciated. There is disc space narrowing with spurring present L1-L4. There is some spurring of the sacroiliac joints without evidence of fusion or widening. Patient is status post previous right abdominal surgery. XR/XR hand LT 2V IMPRESSION: No significant change in degenerative change of the hands as described above. No significant bony abnormality or effusion of the knees identified. Stable postoperative change of the lumbar spine with hardware appearing intact. No evidence of acute fracture. Multilevel degenerative disc disease with spurring.
--- NOTE | ~2021-05-26 | XR_ITS ---
EXAMINATION: XR BILATERAL HANDS XR BILATERAL KNEES XR LUMBAR SPINE CLINICAL INFORMATION: Pain. COMPARISON: Hand studies of 08/23/2015. 03/03/2016 lumbar spine. TECHNIQUE: AP and lateral views of each knee. 4 views of the lumbar spine. 3 views of each hand. FINDINGS: Right Hand: Views of the right hand demonstrate patient to be status post 5th metacarpal fracture. There is narrowing of the 5th carpometacarpal joint. There is significant narrowing of the 1st carpometacarpal joint with degenerative spurring. Findings are essentially unchanged from previous examination of 08/23/2015. Subchondral cyst formation is seen involving the 2nd and 3rd metacarpal heads. Marginal spurring is seen involving the 1st and 2nd distal interphalangeal joints. There is mild spurring base of the 3rd proximal phalanx, most likely posttraumatic. No acute fracture or dislocation is evident. Left Hand: Views of the left hand demonstrate significant degenerative change of the 1st carpometacarpal joint with prominent spurring. No acute fracture or dislocation is evident. Subchondral cyst formation is seen involving the head of the 3rd metacarpal. There is mild marginal joint space spurring of the 2nd and 3rd distal interphalangeal joints. Left Knee: AP and lateral views of the left knee do not demonstrate any evidence of acute fracture or dislocation. Knee joint spaces are maintained. No effusion is seen. Vascular calcifications present. Right Knee: AP and lateral views of the right knee do not demonstrate any evidence of acute fracture or dislocation. Knee joint spaces are maintained. There is some mild spurring of the superior patella site of insertion of the quadriceps tendon. Arterial vascular calcifications present. Lumbar Spine: Views of the lumbar spine demonstrate 5 [id number]-iqq-brbdckr lumbar vertebrae. There is pedicle screw and dong fixation L4 and S1 with disc spaces seen at the L4-L5 and L5-S1 spaces. The hardware appears intact. No acute fracture is appreciated. There is disc space narrowing with spurring present L1-L4. There is some spurring of the sacroiliac joints without evidence of fusion or widening. Patient is status post previous right abdominal surgery. XR/XR hand RT 2V IMPRESSION: No significant change in degenerative change of the hands as described above. No significant bony abnormality or effusion of the knees identified. Stable postoperative change of the lumbar spine with hardware appearing intact. No evidence of acute fracture. Multilevel degenerative disc disease with spurring.
[2021-05-26 13:28] LABS: Basophils Absolute Auto 0.1 X10*3/uL (0.0-0.2); Basophils Percent Auto 0.4 % (0-2); Eosinophils Absolute Auto 0.1 X10*3/uL (0.0-0.4); Eosinophils Percent Auto 0.7 % (0-4); Hematocrit 41.5 % (42.0-52.0); Hemoglobin 13.9 g/dl (14.0-18.0); Imm Gran Abs Auto 0.08 X10*3/uL (0.00-0.03); Imm Gran Pct Auto 0.5 % (0.0-0.4); Lymphocytes Absolute Auto 3.1 X10*3/uL (1.2-4.9); MANUAL DIFF FLAG SCAN; Mean Corpuscular HGB Conc 33.5 g/dl (31.0-36.0); Mean Corpuscular Hemoglobin 31.6 pg (27.0-33.0); Mean Corpuscular Volume 94.3 fL (80.0-98.0); Mean Platelet Volume 10.6 fL (9.4-12.4); Monocytes Absolute Auto 1.8 X10*3/uL (0.1-1.2); Monocytes Percent Auto 10.8 % (2-11); Neutrophils Absolute Auto 11.23 x10*3/uL (2.0-8.3); Neutrophils Percent Auto 68.6 % (45-73); Platelet Count 354 X10*3/uL (160-400); Red Cell Distribution Width 13.9 % (11.0-16.0); SCAN SMEAR FLAG 1; White Blood Count 16.4 X10*3/uL (4.8-10.8)
[2021-05-26 13:58] LABS: Alanine Aminotransferase 7 U/L (0-40); Albumin Level 4.4 g/dL (3.5-5.0); Alkaline Phosphatase 77 U/L (39-117); Anion Gap 19 (12-20); Aspartate Amino Transferase 11 U/L (5-37); Bilirubin Total 0.5 mg/dL (0.0-1.0); Blood Urea Nitrogen 24 mg/dL (9-16); Calcium 9.8 mg/dL (8.4-10.2); Carbon Dioxide 26 mmol/L (22-29); Chloride 103 mmol/L (96-108); Cholesterol 193 mg/dL; Estimated Glomerular Filt Rate 51; Glucose Fasting 81 mg/dL (60-99); HDL Cholesterol 47 mg/dL; LDL Cholesterol Calculated 121 mg/dl; Sodium 144 mmol/L (135-145); Total Protein 7.9 g/dL (6.5-8.0); Triglycerides 126 mg/dL
[2021-05-26 14:07] LABS: SLIDE REVIEW VERIFIED
[2021-05-26 14:25] LABS: Free T4 (Free Thyroxine) 1.02 ng/dL (0.71-1.85); Prostate Specific Antigen Scr < 0.05 ng/mL (<0.05-4.0); Thyroid Stimulating Hormone 1.54 uIU/mL (0.32-4.0)
[2021-05-26 14:43] LABS: Folate 8.4 ng/mL (> or = 4.0); Vitamin B12 425 pg/mL (200-900)
[2021-05-27 11:36] LABS: LDL Cholesterol Direct 123 mg/dL (<100)
== END 2021-05-26 11:00 | disposition home or self-care (01) ==
LOC: HO.XRAY 10:59
PROVIDERS: Absent Provider Internal Medicine; PCP Internal Medicine; Visit Provider Nurse Practitioner Gerontology
DX: E11.21 Type 2 diabetes mellitus with diabetic nephropathy (principal); E11.42 Type 2 diabetes mellitus with diabetic polyneuropathy; E11.319 Type 2 diabetes mellitus with unspecified diabetic retinopathy without macular edema; E11.65 Type 2 diabetes mellitus with hyperglycemia; M79.642 Pain in left hand; M25.561 Pain in right knee; M25.562 Pain in left knee; M79.641 Pain in right hand; Z98.1 Arthrodesis status; E78.5 Hyperlipidemia, unspecified; I10 Essential (primary) hypertension; K21.9 Gastro-esophageal reflux disease without esophagitis
CPT/HCPCS: 36415; 72100; 73120; 73560; 80053; 80061; 82607; 82746; 82947; 83721; 84153; 84439; 84443; 85025; 99212

== ENCOUNTER → 2021-06-10 10:38 | Outpatient (BNVA) | payer MEDICARE, SELFPAY | PROVIDERS: PCP Internal Medicine; Visit Provider Nurse Practitioner Gerontology | DX: E11.65 Type 2 diabetes mellitus with hyperglycemia (principal); E11.649 Type 2 diabetes mellitus with hypoglycemia without coma; E11.319 Type 2 diabetes mellitus with unspecified diabetic retinopathy without macular edema; E11.42 Type 2 diabetes mellitus with diabetic polyneuropathy; E11.21 Type 2 diabetes mellitus with diabetic nephropathy; E78.5 Hyperlipidemia, unspecified; I10 Essential (primary) hypertension | CPT/HCPCS: Q3014 ==

== ENCOUNTER 2021-08-09 08:57 | Outpatient (REF) | payer MEDICARE, SELFPAY ==
--- NOTE | ~2021-08-09 | XR_ITS ---
EXAMINATION: XR HIP, LEFT CLINICAL INFORMATION: Pain in left hip. COMPARISON: CT pelvis 05/25/2021. TECHNIQUE: Two views of the left hip. FINDINGS: Left hip is normally aligned without joint space narrowing or acute osseous abnormality. Mild osteophyte formation is seen at the lateral acetabular margin. Evidence of spinal instrumentation in the lower lumbar spine and sacrum is incompletely evaluated. XR/XR hip LT min 2V IMPRESSION: Minor degenerative change in the left hip. No acute findings identified.
[2021-08-09 10:31] LABS: Alanine Aminotransferase 7 U/L (0-40); Alkaline Phosphatase 75 U/L (39-117); Anion Gap 14 (12-20); Aspartate Amino Transferase 13 U/L (5-37); Bilirubin Total 0.3 mg/dL (0.0-1.0); Blood Urea Nitrogen 22 mg/dL (9-16); Calcium 9.9 mg/dL (8.4-10.2); Carbon Dioxide 30 mmol/L (22-29); Chloride 102 mmol/L (96-108); Cholesterol 115 mg/dL; Estimated Glomerular Filt Rate > 60; Glucose Fasting 120 mg/dL (60-99); HDL Cholesterol 31 mg/dL; LDL Cholesterol Calculated 70 mg/dl; Sodium 141 mmol/L (135-145); Total Protein 7.2 g/dL (6.5-8.0); Triglycerides 72 mg/dL
[2021-08-10 12:50] LABS: LDL Cholesterol Direct 73 mg/dL (<100)
== END 2021-08-09 08:58 | disposition home or self-care (01) ==
LOC: HO.LAB 08:57
PROVIDERS: Absent Provider Nurse Practitioner Gerontology; PCP Internal Medicine; Visit Provider Internal Medicine
DX: E11.319 Type 2 diabetes mellitus with unspecified diabetic retinopathy without macular edema (principal); M25.552 Pain in left hip
CPT/HCPCS: 36415; 73502; 80053; 80061; 83721

== ENCOUNTER → 2021-08-14 10:54 | Outpatient (BNVA) | payer MEDICARE, MEDICAID, SELFPAY | PROVIDERS: PCP Internal Medicine; Visit Provider Orthopaedic Surgery | DX: M70.62 Trochanteric bursitis, left hip (principal); E11.65 Type 2 diabetes mellitus with hyperglycemia; Z98.1 Arthrodesis status | CPT/HCPCS: 20610; 99202; J1100 ==

== ENCOUNTER → 2021-09-09 10:01 | Outpatient (BNVA) | payer MEDICARE, MEDICAID, SELFPAY | PROVIDERS: PCP Internal Medicine; Visit Provider Nurse Practitioner Gerontology | DX: E11.65 Type 2 diabetes mellitus with hyperglycemia (principal); E11.319 Type 2 diabetes mellitus with unspecified diabetic retinopathy without macular edema; E11.42 Type 2 diabetes mellitus with diabetic polyneuropathy; E11.21 Type 2 diabetes mellitus with diabetic nephropathy; I10 Essential (primary) hypertension; E78.5 Hyperlipidemia, unspecified; Z79.84 Long term (current) use of oral hypoglycemic drugs | CPT/HCPCS: 82947; 99212 ==

== ENCOUNTER → 2021-09-12 11:21 | Outpatient (BNVA) | payer MEDICARE, MEDICAID, SELFPAY | PROVIDERS: PCP Internal Medicine; Visit Provider Nurse Practitioner Family | DX: M96.1 Postlaminectomy syndrome, not elsewhere classified (principal) | CPT/HCPCS: 99202 ==

== ENCOUNTER 2021-10-15 11:14 | Outpatient (REF) | payer MEDICARE, MEDICAID, SELFPAY ==
--- NOTE | ~2021-10-15 | MR_ITS ---
EXAMINATION: MR LUMBAR SPINE WITHOUT CONTRAST CLINICAL INFORMATION: Post laminectomy syndrome. Left hip pain. COMPARISON: None TECHNIQUE: MRI of the lumbar spine was obtained using routine sequences without contrast. FINDINGS: There are postoperative findings related to instrumented fusion from L4 to S1 with transpedicular screws at L4 and S1, paired rods, and interbody devices in the L4-L5 and L5-S1 disc spaces. Solid interbody fusion is noted. There is significant endplate edema at L3-L4 and L2-L3. Severe disc height loss is seen at L1-L2, L2-L3, and L3-L4. The distal spinal cord appears normal. The conus medullaris terminates normally at the L1-L2 level. The extraspinal soft tissues are within normal limits. Atheromatous changes are seen within the abdominal aorta and its branch vessels. SPINAL LEVELS: L1-L2: Disc bulging with shallow left subarticular protrusion. No spinal canal stenosis. Mild neural foraminal stenosis. L2-L3: Disc bulging with extension into the neural foramina resulting in severe left and moderate right neural foraminal stenosis. Mild spinal canal stenosis. L3-L4: Disc bulging with facet arthropathy. Mild spinal canal stenosis. Moderate to severe bilateral neural foraminal stenosis. L4-L5: Posterior decompression with instrumented fusion. No spinal canal stenosis. Patent neural foramina. L5-S1: Posterior decompression with instrumented fusion. No spinal canal stenosis. Mild narrowing of the neural foramina. MR/MR lumbar spine wo con IMPRESSION: Postoperative findings related to instrumented fusion seen from L4 to S1. No significant narrowing across these levels. Endplate edema seen at L2-L3 and L3-L4. At L2-L3 there is severe left and moderate right neural foraminal stenosis and mild spinal canal stenosis. At L3-L4 there is moderate to severe bilateral neural foraminal stenosis and mild spinal canal stenosis.
== END 2021-10-15 11:15 | disposition home or self-care (01) ==
LOC: HO.MRI 11:14
PROVIDERS: Visit Provider Nurse Practitioner Family
DX: M96.1 Postlaminectomy syndrome, not elsewhere classified (principal)
CPT/HCPCS: 72148

== ENCOUNTER → 2021-12-02 12:17 | Outpatient (BNVA) | payer MEDICARE, MEDICAID, SELFPAY | PROVIDERS: PCP Internal Medicine; Visit Provider Nurse Practitioner Gerontology | DX: E11.65 Type 2 diabetes mellitus with hyperglycemia (principal); E11.319 Type 2 diabetes mellitus with unspecified diabetic retinopathy without macular edema; E11.42 Type 2 diabetes mellitus with diabetic polyneuropathy; E11.21 Type 2 diabetes mellitus with diabetic nephropathy; E78.5 Hyperlipidemia, unspecified; I10 Essential (primary) hypertension; Z79.84 Long term (current) use of oral hypoglycemic drugs | CPT/HCPCS: 82947; 99212 ==

== ENCOUNTER → 2022-01-15 11:17 | Outpatient (BNVA) | payer MEDICARE, MEDICAID, SELFPAY | PROVIDERS: PCP Internal Medicine; Visit Provider Physician Assistant | DX: Z01.818 Encounter for other preprocedural examination (principal); K21.9 Gastro-esophageal reflux disease without esophagitis; K52.9 Noninfective gastroenteritis and colitis, unspecified | CPT/HCPCS: 99202 ==

== ENCOUNTER 2022-05-19 09:14 | Day surgery (SDC) | payer MEDICARE, MEDICAID, SELFPAY ==
[2022-05-13 14:59] VITALS: BMI 23.4
--- NOTE | 2022-05-18 10:53 | HO.ANESPROP2 ---
Documented by User: Danielle Parker NP 05/18/22 10:58 HPI - Anesthesia Eval Consult details Narrative: 66yo M for Upper Endoscopy and Colonoscopy [facility] Active Problems Active Problems: All Active Problems (Updated 01/15/22 @ 11:39 by Agnes Parish PA-C) Bladder cancer (Acute) Erectile dysfunction associated with type 2 diabetes mellitus (Acute) Type 2 diabetes mellitus with hyperglycemia (Acute) GERD (gastroesophageal reflux disease) (Acute) Bilateral hand pain (Acute) Knee pain, bilateral (Acute) Colon cancer screening (Acute) Annual physical exam (Acute) CAD (coronary artery disease) (Acute) Hip pain, left (Acute) Hemorrhoid (Acute) Colon cancer screening (Acute) Greater trochanteric bursitis of left hip (Acute) Postlaminectomy syndrome, lumbar (Acute) Right knee pain (Acute) Acid reflux (Acute) Hypoglycemia unawareness associated with type 2 diabetes mellitus (Acute) Diabetes type 2, uncontrolled (Acute) History of lumbar fusion (Acute) Hypertension (Acute) Diabetic retinopathy associated with type 2 diabetes mellitus (Acute) Diabetic polyneuropathy associated with type 2 diabetes mellitus (Acute) Diabetic nephropathy associated with type 2 diabetes mellitus (Acute) Diabetes type 2, controlled (Acute) Dyslipidemia (Acute) Past Medical History Medical History Diabetes type 2, controlled Diabetes type 2, uncontrolled Diabetic nephropathy associated with type 2 diabetes mellitus Diabetic polyneuropathy associated with type 2 diabetes mellitus Diabetic retinopathy associated with type 2 diabetes mellitus Dyslipidemia Hypertension Hypoglycemia unawareness associated with type 2 diabetes mellitus Family History Family History Father No problems noted. Mother Myocardial infarct Surgical History Surgical History History of back surgery History of esophagogastroduodenoscopy (EGD) History of lumbar fusion Hx of bladder cancer Hx of colonoscopy Hx of ileostomy Hx of nephrostomy Social History Social History Household Members: Spouse Housing: Apartment Alcohol intake: former Patient Tobacco Use Status: Former Tobacco user Quit Date: 10 yrs ago Years Smoked: quit 2010 e-Cigarette/Vaping Use: Never Used Second Hand Smoke Exposure: Yes Substance Use Type: Marijuana Substance Use Frequency: Daily Are you DNR?: No Advance Directives: No Advance Directives Information Provided: Yes service: No Current occupational status: disabled Cognitive needs: No Hearing needs: No Vision needs: No Meds Allergies Allergy/AdvReac Type Severity Reaction Status Date / Time No Known Allergies Allergy Verified 05/19/22 10:33 [No Known Allergies*] Exam Exam Date and Time: May 18, 2022 1053 Height,Weight and Vital Signs: Height 5 ft 9 in Weight 72.121 kg Assessment and Plan Assessment Anesthesia Assessment: Chart Reviewed Documented by User: Nima Campos MD 05/19/22 11:17 PMFSH Past Medical History Medical History Diabetes type 2, controlled Diabetes type 2, uncontrolled Diabetic nephropathy associated with type 2 diabetes mellitus Diabetic polyneuropathy associated with type 2 diabetes mellitus Diabetic retinopathy associated with type 2 diabetes mellitus Dyslipidemia Hypertension Hypoglycemia unawareness associated with type 2 diabetes mellitus Family History Family History Father No problems noted. Mother Myocardial infarct Family history of problems with anesthesia: No Surgical History Surgical History History of back surgery History of esophagogastroduodenoscopy (EGD) History of lumbar fusion Hx of bladder cancer Hx of colonoscopy Hx of ileostomy Hx of nephrostomy History of Problems with Anesthesia: No Social History Social History Household Members: Spouse Housing: Apartment Alcohol intake: former Patient Tobacco Use Status: Former Tobacco user Quit Date: 10 yrs ago Years Smoked: quit 2010 e-Cigarette/Vaping Use: Never Used Second Hand Smoke Exposure: Yes Substance Use Type: Marijuana Substance Use Frequency: Daily Are you DNR?: No Advance Directives: No Advance Directives Information Provided: Yes service: No Current occupational status: disabled Cognitive needs: No Hearing needs: No Vision needs: No Meds Allergies Allergy/AdvReac Type Severity Reaction Status Date / Time No Known Allergies Allergy Verified 05/19/22 10:33 [No Known Allergies*] Exam Airway Mallampati Class: II TM Dist: >3cm Neck ROM: Full Denture: Upper and Lower Heart: rrr Lungs: clear Assessment and Plan Final Anesthetic Review Family History of Problems with Anesthesia: No History of Problems with Anesthesia: No NPO: Yes ASA Class: III Final Preanesthetic Review: No Changes in Pt Med Stat, Meds/Allgs Chart Reviewed, Consent Obtained/Reviewed and Anes Risks/Benef Reviewed Patient Risk: Intermediate Procedure Risk: Low Anesthetic Plan Anesthetic Plan: MAC: Disposition: Standard PACU
[2022-05-19 10:01] VITALS: BP 142/93; PULSE 62; RESP 15; TEMP 36.3; O2SAT 99
[2022-05-19] MEDS: Lactated Ringers 1,000 ML 100 ML IVCONT (10:09)
--- NOTE | 2022-05-19 10:11 | MHC.SHP ---
Pre-Procedural Eval Section A Date of Service: 05/19/22 The patient is an INPATIENT: No The History & Physical has been completed within 30 days and I have reviewed it.: No Section B Chief Complaint: reflux disease,screening Relevant Family History (Specify if Yes): No Relevant Social History: Tobacco Use (Former smoker) Present Medications: see Short Stay Collaborative assessment Medical History: Significant History (DM, CAD, GERD) History of Previous Operations: Relevant previous surgery/procedure and date(s) (History of back surgery History of esophagogastroduodenoscopy (EGD) Hx of bladder cancer Hx of colonoscopy Hx of nephrostomy) Allergies: Allergies Allergy/AdvReac Type Severity Reaction Status Date / Time No Known Allergies Allergy Verified 02/04/22 10:59 [No Known Allergies*] Review of Systems Sugical H&P ROS: Negative: Constitution, Cardiovascular, Respiratory and Gastrointestinal Exam Surgical H&P Exam: Normal: Heart, Normal: Lungs, Normal: Extremities and Normal: Abdomen Plan Diagnosis/Plan: Unchanged I have reviewed the history and physical and performed a pertinent physical examination on my patient. No changes have occurred unless specified.
[2022-05-19 10:14] LABS: Glucose, Whole Blood 124 mg/dL (60-115)
--- NOTE | 2022-05-19 11:14 | PM.OP ---
Brief Operative Note Date of Service: 05/19/22 Pre-op diagnosis: Colon cancer screening, history of granular cell tumor of the cecum, GERD Post-op diagnosis: other (GERD, gastritis, diverticulosis, hemorrhoids) Procedure: FLEXIBLE TRANSORAL UPPER GASTROINTESTINAL ENDOSCOPY WITH BIOPSIES AND COLONOSCOPY TILL CECUM UPPER ENDOSCOPY Consent: Indications for the procedure and potential complications of bleeding, perforation, reaction to medications and missed diagnosis were discussed with the patient and informed consent was obtained. Instrument: Olympus GIF H 190 mid size upper endoscope Monitoring: Vital signs and clinical assessment, continuous EKG monitoring, Pulse oximetry, Carbon Dioxide monitoring and blood pressure monitoring were done throughout the procedure. Procedure: The patient was placed in the left lateral decubitis position and pre-procedure medications were administered and a bite block was placed. The endoscope was inserted into the mouth and advanced under direct vision to the third part of duodenum. A careful inspection was made as the upper endoscope was withdrawn including a retroflexed examination of the proximal stomach; Findings and interventions are described below. Findings: Larynx: Normal Esophagus: GE junction at 40 cms. No esophagitis or Pearson's. Stomach: Mild gastric erythema. Biopsies were obtained from the antrum. Grade 2 flap valve on retroflexed examination of the cardia. Duodenum: Normal bulb and descending duodenum Intervention: Biopsies as noted above COLONOSCOPY PROCEDURE NOTE Consent: Indications for the procedure and potential complications of bleeding, perforation, reaction to medications and missed diagnosis were discussed with the patient and informed consent was obtained. Instrument: Olympus CF H 190 L variable stiffness adult colonoscope Monitoring: Vital signs and clinical assessment, intermittent blood pressure monitoring, continuous EKG monitoring, Pulse oximetry and Carbon Dioxide monitoring were done throughout the procedure. Colon withdrawl time was 21 minutes. Procedure: The patient was placed in the left lateral decubitis position and pre-procedure medications were administered. After a digital rectal examination of the ano-rectum, the video colonoscope was inserted into the rectum and advanced through the colon to the cecum. The colonoscope was slowly withdrawn in a retrograde panoramic fashion and the colon mucosa was carefully examined including a retroflexed view of the rectum. Findings and interventions are described below. Procedure Difficulty: Colon was long and tortuous and there was recurrent loop formation. Redundant and tortuous sigmoid colon which were navigated with some difficulty. No maneuvers were required Findings: Terminal Ileum: Not evaluated Cecum: Normal Ascending Colon: Normal Transverse Colon: Normal Descending Colon: Moderate diverticulosis Sigmoid Colon: Moderate diverticulosis Rectum: Normal Ano-rectum: Moderate internal hemorrhoids Colon preparation: Excellent Impression and Post Procedure Diagnosis: Endoscopy Findings: STOMACH: Mild gastric erythema. Biopsies were obtained. Colonoscopy Findings: No polyps were detected Moderate diverticulosis seen in the left colon Moderate hemorrhoids on antegarde exam. Plan: Await pathology results Patient has an appointment on 06/02/22 in the GI Clinic with YASHIRA Warren. Repeat Colonoscopy in 9 to 10 years. Above findings were reviewed with the patient and GERD and diverticulosis handouts were given in the discharge area Surgeon: Jennifer Hudson MD Anesthesia: MAC Was an Tab Card Press Operator used for this Procedure?: Yes Tab Card Press Operator: Dimitri Link Estimated blood loss (mL): 0 Pathology: other ( A) BX Gastric Antrum) Condition: stable Disposition: PACU
--- NOTE | 2022-05-19 11:20 | W.PM.OPN ---
Operative Note Operative Note Date of Service: 05/19/22 Narrative: Pre-op diagnosis: Colon cancer screening, history of granular cell tumor of the cecum, GERD Post-op diagnosis:?other (GERD, gastritis, diverticulosis, hemorrhoids) Procedure: FLEXIBLE TRANSORAL UPPER GASTROINTESTINAL ENDOSCOPY WITH BIOPSIES AND COLONOSCOPY TILL CECUM UPPER ENDOSCOPY Consent:?Indications for the procedure and potential complications of bleeding, perforation, reaction to medications and missed diagnosis were discussed with the patient and informed consent was obtained. Instrument:?Olympus GIF H 190 mid size upper endoscope Monitoring: Vital signs and clinical assessment, continuous EKG monitoring, Pulse oximetry, Carbon Dioxide monitoring and blood pressure monitoring were done throughout the procedure. Procedure:?The patient was placed in the left lateral decubitis position and pre-procedure medications were administered and a bite block was placed. The endoscope was inserted into the mouth and advanced under direct vision to the third part of duodenum. A careful inspection was made as the upper endoscope was withdrawn including a retroflexed examination of the proximal stomach; Findings and interventions are described below. Findings: Larynx:? Normal Esophagus:?GE junction at 40 cms. No esophagitis or Pearson's. Stomach:?Mild gastric erythema. Biopsies were obtained from the antrum. Grade 2 flap valve on retroflexed examination of the cardia. Duodenum:?Normal bulb and descending duodenum Intervention:?Biopsies as noted above COLONOSCOPY PROCEDURE NOTE Consent:?Indications for the procedure and potential complications of bleeding, perforation, reaction to medications and missed diagnosis were discussed with the patient and informed consent was obtained. Instrument:?Olympus CF H 190 L variable stiffness adult colonoscope Monitoring:?Vital signs and clinical assessment, intermittent blood pressure monitoring, continuous EKG monitoring, Pulse oximetry and Carbon Dioxide monitoring were done throughout the procedure. Colon withdrawl time was 21 minutes. Procedure:?The patient was placed in the left lateral decubitis position and pre-procedure medications were administered. After a digital rectal examination of the ano-rectum, the video colonoscope was inserted into the rectum and advanced through the colon to the cecum. The colonoscope was slowly withdrawn in a retrograde panoramic fashion and the colon mucosa was carefully examined including a retroflexed view of the rectum. Findings and interventions are described below. Procedure Difficulty:??Colon was long and tortuous and there was recurrent loop formation.? Redundant and tortuous sigmoid colon which were navigated with some difficulty.? No maneuvers were required Findings: Terminal Ileum: Not evaluated Cecum:? Normal Ascending Colon:??Normal Transverse Colon:??Normal Descending Colon:? Moderate diverticulosis Sigmoid Colon:??Moderate diverticulosis Rectum:??Normal Ano-rectum:??Moderate internal hemorrhoids Colon preparation: Excellent ? Impression and Post Procedure Diagnosis: Endoscopy Findings: STOMACH: Mild gastric erythema. Biopsies were obtained. Colonoscopy Findings: No polyps were detected Moderate diverticulosis seen in the left colon Moderate hemorrhoids on antegarde exam. Plan: Await pathology results Patient has an appointment on 06/02/22 in the GI Clinic with YASHIRA Warren. Repeat Colonoscopy in 9 to 10 years. Above findings were reviewed with the patient and GERD and diverticulosis handouts were given in the discharge area Surgeon: Jennifer Hudson MD Anesthesia:?MAC Was an Home Security Professional used for this Procedure?:?Yes Home Security Professional:?Dimitri Link Estimated blood loss (mL):?0 Pathology:?other ( A) BX Gastric Antrum) Condition:?stable Disposition:?PACU
[2022-05-19 12:14] VITALS: BP 152/90; PULSE 65; RESP 16; TEMP 36.3; O2SAT 100
[2022-05-19] MEDS: ondansetron HCL 4 MG/2 ML VIAL IVPUSH (12:28)
[2022-05-19 12:29] VITALS: BP 164/78; PULSE 55; RESP 16; O2SAT 98
[2022-05-19 12:44] VITALS: BP 160/94; PULSE 58; RESP 16; O2SAT 100
[2022-05-19 12:59] VITALS: BP 179/92; PULSE 53; RESP 16; TEMP 36.3; O2SAT 100
--- NOTE | 2022-05-19 13:42 | PC.NURSE ---
Addendum entered by Conine Ha RN 05/19/22 14:03: Patient refused to allow author to update/review symptoms of nausea with anesthesia. attempted to get out of chair and walk out and stated this is normal, I want to go home. Patient stated that he has zofran at home that he takes when nausea/vomiting is triggered. Patient assisted back into W/C. pallor wnl. denied nausea at this time. Brought to car with mellowing machine operator and did well in elevators/hallway to car. Original Note: Patient was given zofran IV in PACU per Naomie PANDA and stated that his nausea has improved.. Patient states daily nausea is his baseline which is why had EGD today. Patient only spitting into emesis bag. Clear spit. Patient tolerated coffee and crackers well.
== END 2022-05-19 13:50 | disposition home or self-care (01) ==
PROVIDERS: PCP Internal Medicine; Visit Provider Internal Medicine Gastroenterology
PROC: (CPT 43239; principal; 2022-05-19 10:50)
DX: Z12.11 Encounter for screening for malignant neoplasm of colon (principal); Z86.010 Personal history of colon polyps; K57.30 Diverticulosis of large intestine without perforation or abscess without bleeding; K64.8 Other hemorrhoids; K21.9 Gastro-esophageal reflux disease without esophagitis; K29.50 Unspecified chronic gastritis without bleeding; E78.5 Hyperlipidemia, unspecified; I25.10 Atherosclerotic heart disease of native coronary artery without angina pectoris; I10 Essential (primary) hypertension; E11.65 Type 2 diabetes mellitus with hyperglycemia; E11.21 Type 2 diabetes mellitus with diabetic nephropathy; E11.42 Type 2 diabetes mellitus with diabetic polyneuropathy; E11.319 Type 2 diabetes mellitus with unspecified diabetic retinopathy without macular edema; Z79.84 Long term (current) use of oral hypoglycemic drugs; Z79.899 Other long term (current) drug therapy; Z85.51 Personal history of malignant neoplasm of bladder; Z87.891 Personal history of nicotine dependence; F12.90 Cannabis use, unspecified, uncomplicated; Z93.2 Ileostomy status; Z98.1 Arthrodesis status
CPT/HCPCS: 43239; G0105; 82947; 88305; 88342; J2405

== ENCOUNTER 2022-05-25 12:03 | Outpatient (REF) | payer MEDICARE, MEDICAID, SELFPAY ==
[2022-05-25 12:37] LABS: MANUAL DIFF FLAG NO
[2022-05-25 12:59] LABS: Basophils Absolute Auto 0.1 X10*3/uL (0.0-0.2); Basophils Percent Auto 0.5 % (0-2); Eosinophils Absolute Auto 0.2 X10*3/uL (0.0-0.4); Eosinophils Percent Auto 1.7 % (0-4); Hematocrit 39.2 % (42.0-52.0); Imm Gran Abs Auto 0.03 X10*3/uL (0.00-0.03); Imm Gran Pct Auto 0.3 % (0.0-0.4); Immature Retic Fraction 11.4 % (2.3-13.4); Lymphocytes Absolute Auto 2.9 X10*3/uL (1.2-4.9); Lymphocytes Percent Auto 27.4 % (20-40); Mean Corpuscular HGB Conc 33.2 g/dl (31.0-36.0); Mean Corpuscular Hemoglobin 31.9 pg (27.0-33.0); Mean Corpuscular Volume 96.1 fL (80.0-98.0); Mean Platelet Volume 10.2 fL (9.4-12.4); Monocytes Percent Auto 9.7 % (2-11); Neutrophils Absolute Auto 6.5 x10*3/uL (2.0-8.3); Neutrophils Percent Auto 60.4 % (45-73); Platelet Count 399 X10*3/uL (160-400); Red Blood Count 4.08 X10*6/uL (4.60-5.80); Red Cell Distribution Width 12.9 % (11.0-16.0); Retic HGB Equivalent 37.8 pg (30.0-35.0); White Blood Count 10.7 X10*3/uL (4.8-10.8)
[2022-05-25 13:07] LABS: Estimated Average Glucose 154 mg/dL
[2022-05-25 13:21] LABS: Alanine Aminotransferase 8 U/L (0-40); Albumin Level 4.4 g/dL (3.5-5.0); Alkaline Phosphatase 81 U/L (39-117); Anion Gap 16 (12-20); Aspartate Amino Transferase 14 U/L (5-37); Bilirubin Total 0.4 mg/dL (0.0-1.0); Blood Urea Nitrogen 20 mg/dL (9-16); Calcium 9.9 mg/dL (8.4-10.2); Carbon Dioxide 29 mmol/L (22-29); Chloride 101 mmol/L (96-108); Cholesterol 128 mg/dL; Estimated Glomerular Filt Rate > 60; Glucose Random 129 mg/dL (60-115); HDL Cholesterol 42 mg/dL; Iron 82 mcg/dL (45-160); LDL Cholesterol Calculated 72 mg/dl; Percent Iron Saturation 29 % (15-50); Potassium 4.3 mmol/L (3.3-5.1); Sodium 142 mmol/L (135-145); Total Iron Binding Capacity 287 mcg/dL (228-428); Total Protein 7.5 g/dL (6.5-8.0); Triglycerides 70 mg/dL; Unsaturated Iron Binding 205 ug/dL
[2022-05-25 13:51] LABS: Folate 13.5 ng/mL (> or = 4.0); Vitamin B12 395 pg/mL (200-900)
[2022-05-25 13:54] LABS: Ferritin 79 ng/mL (20-250); Free T4 (Free Thyroxine) 1.13 ng/dL (0.71-1.85); Prostate Specific Antigen Scr < 0.05 ng/mL (<0.05-4.0); Thyroid Stimulating Hormone 0.49 uIU/mL (0.32-4.0)
== END 2022-05-25 12:04 | disposition home or self-care (01) ==
LOC: HO.LAB 12:03
PROVIDERS: PCP Internal Medicine; Visit Provider Internal Medicine
DX: Z12.5 Encounter for screening for malignant neoplasm of prostate (principal); E11.65 Type 2 diabetes mellitus with hyperglycemia; I10 Essential (primary) hypertension
CPT/HCPCS: 36415; 80053; 80061; 82607; 82728; 82746; 83036; 83540; 84153; 84439; 84443; 85025; 85045

== ENCOUNTER → 2022-11-05 10:34 | Outpatient (BNVA) | payer MEDICARE, MEDICAID, SELFPAY | PROVIDERS: PCP Internal Medicine; Visit Provider Orthopaedic Surgery | DX: M70.62 Trochanteric bursitis, left hip (principal); E11.65 Type 2 diabetes mellitus with hyperglycemia; E11.21 Type 2 diabetes mellitus with diabetic nephropathy; E11.319 Type 2 diabetes mellitus with unspecified diabetic retinopathy without macular edema; Z98.1 Arthrodesis status | CPT/HCPCS: 20610; 99212; J1100 ==

== ENCOUNTER 2023-02-12 09:49 | Outpatient (AMB) | payer OTHER, SELFPAY ==
--- NOTE | 2023-02-12 09:52 | MHC.PC.OV ---
Vital Signs 02/12/23 09:53 Height 5 ft 9 in Weight 165 lb BMI 24.4 BP 120/72 Blood Pressure Location Lt brachial Position Sitting Pulse 78 Pulse Source Pulse Oximeter Pulse Oximetry (%) 96 Intake Visit Reasons: 3 month f/u Intake Note: pt is here for 3 month f/u Wall Covering Installer Required: No Allergies No Known Allergies [No Known Allergies*] Allergy (Verified 02/12/23 09:52) Tobacco use date assessed: 08/11/22 Fall risk assessment: No Falls in past year Last assessed Fall Risk: 02/12/23 Dental Screening Dental Screen Date: 02/12/23 Did you have a dental visit in the last 12 months?: Yes Did you have a dental problem in the last 6 months where you did not have access to dental care?: No Was dental information given to patient?: Patient has dentist HPI 3 month f/u HPI Details 67-year-old male with diabetes mellitus history of bladder cancer GERD coronary artery disease lumbar post laminectomy syndrome coming in for follow-up. Patient also has hypertension hypercholesterol E last seen in October 2022. Blood work was last April 2022 [facility] Medical History Acid reflux Annual physical exam Diabetic nephropathy associated with type 2 diabetes mellitus Diabetic polyneuropathy associated with type 2 diabetes mellitus Diabetic retinopathy associated with type 2 diabetes mellitus Dyslipidemia Hypertension Hypoglycemia unawareness associated with type 2 diabetes mellitus Right knee pain Type 2 diabetes mellitus with hyperglycemia Surgical History History of back surgery History of esophagogastroduodenoscopy (EGD) History of lumbar fusion Hx of bladder cancer Hx of colonoscopy Hx of ileostomy Hx of nephrostomy Family History Father No problems noted. Mother Myocardial infarct Social History Household Members: Spouse Housing: Apartment Alcohol intake: current Alcohol intake frequency: does not drink Patient Tobacco Use Status: Former Tobacco user Quit Date: 10 yrs ago Years Smoked: quit 2010 e-Cigarette/Vaping Use: Never Used Second Hand Smoke Exposure: Yes Substance Use Type: Marijuana service: No Current occupational status: disabled Cognitive needs: No Hearing needs: No Vision needs: No Questionnaire Thrive Questionnaire Date Thrive assessed: 08/11/22 LADARIUS-7 AMB Questionnaire LADARIUS-7 Date LADARIUS - 7 assessed: 08/11/22 Source: Developed by Drs. Dimitri Fontaine, Janine Powell, Rajeev Guerra and colleagues, with an educational brooke from [employer]. Physical exam (Primary Care) Vital Signs: Last Vital Signs Pulse 78 02/12/23 09:53 BP 120/72 02/12/23 09:53 Pulse Ox 96 02/12/23 09:53 Care Plan Goal for BP management: As the urine bag on right abdominal area BMI result Body Mass Index 24.4 Tobacco/Smoking Status: Tobacco use Status Tobacco use date assessed 08/11/22 02/12/23 09:56 Patient Tobacco Use Status Former Tobacco user 02/12/23 09:56 e-Cigarette/Vaping Use Never Used 02/12/23 09:56 Thrive Assessment: Date of Thrive Assessment Date Thrive assessed 08/11/22 02/12/23 09:56 Const General: alert; No acute distress Eyes Conjunctivae: conjunctivae normal Resp Auscultation: clear to auscultation bilaterally Cardio Rate: regular rate Rhythm: regular rhythm GI Inspection: Yes normal to inspection Extrem General: Yes normal to inspection and No edema Results AMB Hemoglobin A1c AMB Hemoglobin A1c 7.8 % Last Edit by Frank Mooney CMA on 02/12/23 10:08 Results Reviewed Results Reviewed: Laboratory Last Values Hgb A1c (Clinic) 7.8 % (4.0-6.0) H 02/12/23 09:59 Assessment and Plan Assessment & Plan (1) Type 2 diabetes mellitus with hyperglycemia: Comment: Dr. Eason Code(s): E11.65 - Type 2 diabetes mellitus with hyperglycemia Plan: Decrease the amount of carbohydrate intake, pasta, bread, rice and potatoes are all sugar and that is aside from all the sweet stuff, remember that fruits are good but they are Sweet also. Hemoglobin A1c goal of less than 7.0 had a long discussion with the patient on the need to get the blood sugars under control. Will stop glipizide and add Jardiance (2) GERD (gastroesophageal reflux disease): Code(s): K21.9 - Gastro-esophageal reflux disease without esophagitis Plan: Avoid the foods that causes that usually spicy foods, tomato products, juices, coffee, soda and foods that your sensitive to. After eating do not lie down, allow 3-4 hours before in lie down. And keep the head of bed above 30 degrees to avoid the acid from going up. (3) CAD (coronary artery disease): Comment: 2013 (as per patient) Code(s): I25.10 - Atherosclerotic heart disease of [place] coronary artery without angina pectoris Plan: Control the cholesterol, weight, blood pressure, diabetes (4) Postlaminectomy syndrome, lumbar: Code(s): M96.1 - Postlaminectomy syndrome, not elsewhere classified Plan: Narcotic pain meds: Is being prescribed with the understanding that these medications are potentially addictive and should be used only when absolutely necessary and must always be secured. Any remaining pills should be safely disposed off appropriately. Patient is advised that narcotics can impaired judgment and one should not drive or operate heavy machinery while taking these medications. Never share these medications with anybody and do not leave them unattended. They will not be replaced under any circumstances. (5) Dyslipidemia: Code(s): E78.5 - Hyperlipidemia, unspecified Plan: Avoid fried foods, chicken skin, eggs, butter margarine, pastries and meat. Be it pork or beef they have a lot of cholesterol April 2022 last blood work patient is taking atorvastatin 40 mg once a day (6) Hypertension: Code(s): I10 - Essential (primary) hypertension Qualifiers: Hypertension type: essential hypertension Qualified Code(s): I10 - Essential (primary) hypertension Plan: Continue with blood pressure medication. Decrease salt intake and exercise patient takes nifedipine 60 mg once a day metoprolol 25 mg once a day and lisinopril 2.5 mg once a day Orders: Orders Vitamin B12 and Folate 3 Months - Type 2 diabetes mellitus with hyperglycemia Comprehensive Met. Panel 3 Months - Type 2 diabetes mellitus with hyperglycemia Hemoglobin A1c 3 Months - Type 2 diabetes mellitus with hyperglycemia Lipid Panel 3 Months - Type 2 diabetes mellitus with hyperglycemia, E78.00 - Pure hypercholesterolemia, unspecified Prostate Specific Antigen Scr 3 Months - Type 2 diabetes mellitus with hyperglycemia Free T4 (Free Thyroxine) 3 Months - Type 2 diabetes mellitus with hyperglycemia Thyroid Stimulating Hormone 3 Months E11.65 - Type 2 diabetes mellitus with hyperglycemia Complete Blood Count Auto Diff 3 Months E11.65 - Type 2 diabetes mellitus with hyperglycemia AMB Hemoglobin A1c Today E11.9 - Type 2 diabetes mellitus without complications, Z13.9 - Encounter for screening, unspecified Medications: New empagliflozin (Jardiance) 10 mg PO DAILY 30 tabs 3RF E11.65 - Type 2 diabetes mellitus with hyperglycemia Refilled omeprazole 20 mg PO DAILY 90 days 90 caps 3RF J03.90 - Acute tonsillitis, unspecified metoprolol succinate ER 25 mg (1/2 x 50 mg) PO DAILY 90 days 45 tabs 3RF I10 - Essential (primary) hypertension Coding Level of Care Code Est Pt Level 4 (52727) Diagnoses Type 2 diabetes mellitus with hyperglycemia E11.65 GERD (gastroesophageal reflux disease) K21.9 CAD (coronary artery disease) I25.10 Postlaminectomy syndrome, lumbar M96.1 Dyslipidemia E78.5 Hypertension I10 Hypertension type: essential hypertension
[2023-02-12 09:53] VITALS: BP 120/72; PULSE 78; O2SAT 96; BMI 24.4
== END 2023-02-12 10:31 | disposition home or self-care (01) ==
PROVIDERS: Visit Provider Internal Medicine
DX: E11.65 Type 2 diabetes mellitus with hyperglycemia (principal); K21.9 Gastro-esophageal reflux disease without esophagitis; E11.69 Type 2 diabetes mellitus with other specified complication; I10 Essential (primary) hypertension; I25.10 Atherosclerotic heart disease of native coronary artery without angina pectoris; M96.1 Postlaminectomy syndrome, not elsewhere classified; E78.5 Hyperlipidemia, unspecified
CPT/HCPCS: 83036; 99214

== ENCOUNTER 2023-04-22 10:31 | Outpatient (REF) | payer OTHER, SELFPAY ==
[2023-04-22 10:44] LABS: MANUAL DIFF FLAG NO
[2023-04-22 12:36] LABS: Basophils Absolute Auto 0.1 X10*3/uL (0.0-0.2); Basophils Percent Auto 0.6 % (0-2); Eosinophils Absolute Auto 0.2 X10*3/uL (0.0-0.4); Hematocrit 39.9 % (42.0-52.0); Hemoglobin 13.2 g/dl (14.0-18.0); Imm Gran Abs Auto 0.05 X10*3/uL (0.00-0.03); Imm Gran Pct Auto 0.4 % (0.0-0.4); Lymphocytes Absolute Auto 3.1 X10*3/uL (1.2-4.9); Lymphocytes Percent Auto 25.6 % (20-40); Mean Corpuscular HGB Conc 33.1 g/dl (31.0-36.0); Mean Corpuscular Hemoglobin 32.4 pg (27.0-33.0); Mean Corpuscular Volume 97.8 fL (80.0-98.0); Mean Platelet Volume 10.8 fL (9.4-12.4); Monocytes Absolute Auto 1.3 X10*3/uL (0.1-1.2); Monocytes Percent Auto 10.6 % (2-11); Neutrophils Absolute Auto 7.3 x10*3/uL (2.0-8.3); Neutrophils Percent Auto 60.8 % (45-73); Platelet Count 387 X10*3/uL (160-400); Red Blood Count 4.08 X10*6/uL (4.60-5.80); Red Cell Distribution Width 12.6 % (11.0-16.0); White Blood Count 11.9 X10*3/uL (4.8-10.8)
[2023-04-22 12:54] LABS: Estimated Average Glucose 148 mg/dL; Hemoglobin A1c % 6.8 % (<6.0)
[2023-04-22 13:23] LABS: Alanine Aminotransferase 8 U/L (0-40); Albumin Level 3.9 g/dL (3.5-5.0); Alkaline Phosphatase 74 U/L (39-117); Anion Gap 15 (12-20); Aspartate Amino Transferase 11 U/L (5-37); Bilirubin Total 0.4 mg/dL (0.0-1.0); Blood Urea Nitrogen 18 mg/dL (9-16); Calcium 9.3 mg/dL (8.4-10.2); Carbon Dioxide 25 mmol/L (22-29); Chloride 107 mmol/L (96-108); Cholesterol 111 mg/dL (<200); Estimated Glomerular Filt Rate > 60; Glucose Random 133 mg/dL (60-115); HDL Cholesterol 31 mg/dL (>40); LDL Cholesterol Calculated 62 mg/dL (<100); Potassium 3.3 mmol/L (3.3-5.1); Sodium 144 mmol/L (135-145); Total Protein 7.1 g/dL (6.5-8.0); Triglycerides 93 mg/dL (<150)
[2023-04-22 13:30] LABS: Free T4 (Free Thyroxine) 0.94 ng/dL (0.71-1.85); Thyroid Stimulating Hormone 0.62 uIU/mL (0.32-4.0)
[2023-04-22 13:54] LABS: Folate 8.8 ng/mL (> or = 4.0); Prostate Specific Antigen Scr < 0.10 ng/mL (<0.05-4.0); Vitamin B12 419 pg/mL (200-900)
== END 2023-04-22 10:32 | disposition home or self-care (01) ==
LOC: HO.LAB 10:31
PROVIDERS: PCP Internal Medicine; Visit Provider Internal Medicine
DX: Z12.5 Encounter for screening for malignant neoplasm of prostate (principal); E11.65 Type 2 diabetes mellitus with hyperglycemia; E78.00 Pure hypercholesterolemia, unspecified
CPT/HCPCS: 36415; 80053; 80061; 82607; 82746; 83036; 84153; 84439; 84443; 85025

== ENCOUNTER 2023-05-26 10:55 | Outpatient (AMB) | payer OTHER, SELFPAY ==
[2023-05-26 11:01] VITALS: BP 116/68; PULSE 56; O2SAT 95; BMI 24.5
--- NOTE | 2023-05-26 11:01 | A.OFFPC_ITS ---
Vital Signs 05/26/23 11:01 Height 5 ft 9 in Weight 166 lb BMI 24.5 BP 116/68 Blood Pressure Location Lt brachial Position Sitting Pulse 56 Pulse Source Pulse Oximeter Pulse Oximetry (%) 95 Oxygen Delivery Method Room Air Intake Visit Reasons: 3mth f/u Allergies No Known Allergies [No Known Allergies*] Allergy (Verified 05/26/23 11:01) Medication List - Last Reconciled 05/26/23 by Yue Daley MD atorvastatin 40 mg PO DAILY 90 days Basaglar KwikMejia U-100 Insulin (insulin glargine) 25 units (0.25 mL) subcut QPM 30 days NS blood sugar diagnostic (CHOBOLABSuch Ultra Test strips) DIRECTED THREE TIMES A DAY blood sugar diagnostic As directed three times a day blood-glucose meter (CHOBOLABSuch Ultra2 Meter kit) test 3 times per day empagliflozin (Jardiance) 10 mg PO DAILY lancets (TravellutionTouch Delica Lancets) Test 3 times daily lisinopril 2.5 mg PO DAILY 90 days metformin ER 500 mg PO DAILY 90 days metoprolol succinate ER 25 mg (1/2 x 50 mg) PO DAILY 90 days nifedipine ER 60 mg PO DAILY 90 days omeprazole 20 mg PO DAILY 90 days oxycodone-acetaminophen 5-325 mg 1 tab PO BID PRN 30 days pen needle, diabetic Once a day [rollator As directed] sucralfate (Carafate) 1 g PO BID 90 days [Three Wheel Scooter As directed] zolpidem 10 mg PO BEDTIME 90 days Tobacco use date assessed: 08/11/22 Dental Screening Dental Screen Date: 05/26/23 Did you have a dental visit in the last 12 months?: Yes Did you have a dental problem in the last 6 months where you did not have access to dental care?: No Was dental information given to patient?: Patient has dentist HPI 3mth f/u HPI Details 67-year-old male with uncontrolled diabe annetta mellitus coronary artery disease GERD hypercholesterolemia hypertension with post laminectomy syndrome on narcotic pain medication coming in for follow-up. Last seen in January 2023. Patient follows up with Hematology-Oncology for urothelial carcinoma history(bladder cancer) presently no signs of recurrence has a urostomy tube patient has been doing fine otherwise no nausea no vomiting no chest pains no shortness of breath no bowel symptoms. Patient concerned about erectile dysfunction and was wanting referral to urology. Patient does have the urostomy tube [facility] Medical History Acid reflux Annual physical exam Diabetic nephropathy associated with type 2 diabetes mellitus Diabetic polyneuropathy associated with type 2 diabetes mellitus Diabetic retinopathy associated with type 2 diabetes mellitus Dyslipidemia Hypertension Hypoglycemia unawareness associated with type 2 diabetes mellitus Right knee pain Type 2 diabetes mellitus with hyperglycemia Surgical History History of back surgery History of esophagogastroduodenoscopy (EGD) History of lumbar fusion Hx of bladder cancer Hx of colonoscopy Hx of ileostomy Hx of nephrostomy Family History Father No problems noted. Mother Myocardial infarct Social History Household Members: Spouse Housing: Apartment Alcohol intake: current Alcohol intake frequency: does not drink Patient Tobacco Use Status: Former Tobacco user Quit Date: 10 yrs ago Tobacco use type: Cigarette Years Smoked: quit 2010 e-Cigarette/Vaping Use: Never Used Second Hand Smoke Exposure: Yes Substance Use Type: Marijuana service: No Current occupational status: disabled Cognitive needs: No Hearing needs: No Vision needs: No Questionnaire PHQ-9 Over the last 2 weeks, how often have you been bothered by any of the following problems? 1. Little interest or pleasure in doing things: not at all 2. Feeling down, depressed, or hopeless: not at all 3. Trouble falling or staying asleep, or sleeping too much: not at all 4. Feeling tired or having little energy: not at all 5. Poor appetite or overeating: not at all 6. Feeling bad about yourself - or that you are a failure or have let yourself or your family down: not at all 7. Trouble concentrating on things, such as reading the newspaper or watching television: not at all 8. Moving or speaking so slowly that other people could have noticed. Or the opposite - being so fidgety or restless that you have been moving around a lot more than usual: not at all 9. Thoughts that you would be better off or of hurting yourself in some way: not at all Total score: 0 Depression Screening Interpretation: Negative Depression Screening Done: Yes Source: Developed by Drs. Dimitri Fontaine, Rajeev Smith and colleagues, with an educational brooke from [employer]. Thrive Questionnaire Date Thrive assessed: 08/11/22 AUDIT C Alcohol Use Questionnaire (AUDIT-C) 1. How often do you have a drink containing alcohol?: Monthly or less 2. How many drinks containing alcohol do you have on a typical day when you are drinking?: 1 or 2 3. How often do you have six or more drinks on one occasion?: Never Total Score: 1 Score Reviewed/Action Taken: No LADARIUS-7 AMB Questionnaire LADARIUS-7 Date LADARIUS - 7 assessed: 08/11/22 Source: Developed by Drs. Dimitri Fontaine, Rajeev Smith and colleagues, with an educational brooke from [employer]. Physical exam (Primary Care) Vital Signs: Last Vital Signs Pulse 56 05/26/23 11:01 BP 116/68 05/26/23 11:01 Pulse Ox 95 05/26/23 11:01 Oxygen Delivery Method Room Air 05/26/23 11:01 BMI result Body Mass Index 24.5 Tobacco/Smoking Status: Tobacco use Status Tobacco use date assessed 08/11/22 05/26/23 11:04 Patient Tobacco Use Status Former Tobacco user 05/26/23 11:04 Tobacco use type Cigarette 05/26/23 11:04 e-Cigarette/Vaping Use Never Used 05/26/23 11:04 PHQ-9: PHQ-9 Score PHQ-9: Total score 0 05/26/23 11:10 Depression Screening Interpretation: Negative Thrive Assessment: Date of Thrive Assessment Date Thrive assessed 08/11/22 05/26/23 11:04 Const General: alert; No acute distress Eyes Conjunctivae: conjunctivae normal Resp Auscultation: clear to auscultation bilaterally Cardio Rate: regular rate Rhythm: regular rhythm GI Inspection: Yes normal to inspection Extrem General: Yes normal to inspection and No edema Office Procedures Flu Questionnaire Does the patient have a severe egg allergy?: No Does the patient have severe life threatening allergies?: No Does the patient have a fever or illness today?: No Has the patient ever had Guillain-[place] Syndrome?: No Has the patient ever had any past reaction to a flu shot?: No Immunizations flu vacc [id number] 6mos up(PF) 60 mcg(15 mcgx4)/0.5 mL IM syringe Performing Provider: Yue Daley MD [facility] Administered by: Vicky Javier CMA on 05/26/23 11:15 Dose Route Admin Location Dispensed Lot Number Expiration Date N[employer] Manager [place] 0.5 mL IM Left Deltoid 0.5 mL [id number] 01/23/24 79209-974-87 [employer] VIS Given Date VIS Provided VIS Publication Date 05/26/23 Single Vaccine 21 Eligibility Eligibility Date Funding Source Not VFC Eligible 05/26/23 Private Assessment and Plan Assessment & Plan (1) Type 2 diabetes mellitus with hyperglycemia: Comment: Dr. Eason Code(s): E11.65 - Type 2 diabetes mellitus with hyperglycemia Plan: Decrease the amount of carbohydrate intake, pasta, bread, rice and potatoes are all sugar and that is aside from all the sweet stuff, remember that fruits are good but they are Sweet also. Hemoglobin A1c goal of less than 7.0. Patient on Basaglar Jardiance 10 mg once a day metformin 500 mg once a day (2) Bladder cancer: Comment: Cystoprostatectomy 2017 [facility], STOMA placement RLQ Code(s): C67.9 - Malignant neoplasm of bladder, unspecified Plan: Patient follows up with hematology oncology no signs of recurrence (3) GERD (gastroesophageal reflux disease): Code(s): K21.9 - Gastro-esophageal reflux disease without esophagitis Plan: Avoid the foods that causes that usually spicy foods, tomato products, juices, coffee, soda and foods that your sensitive to. After eating do not lie down, allow 3-4 hours before in lie down. And keep the head of bed above 30 degrees to avoid the acid from going up. (4) CAD (coronary artery disease): Comment: 2013 (as per patient) Code(s): I25.10 - Atherosclerotic heart disease of [place] coronary artery without angina pectoris Plan: Control the cholesterol, weight, blood pressure, diabetes (5) Dyslipidemia: Code(s): E78.5 - Hyperlipidemia, unspecified Plan: Avoid fried foods, chicken skin, eggs, butter margarine, pastries and meat. Be it pork or beef they have a lot of cholesterol LDL goal of less than 70 and triglyceride less than 150. March 2023 last blood (6) Postlaminectomy syndrome, lumbar: Code(s): M96.1 - Postlaminectomy syndrome, not elsewhere classified Plan: Narcotic pain meds: Is being prescribed with the understanding that these medications are potentially addictive and should be used only when absolutely necessary and must always be secured. Any remaining pills should be safely disposed off appropriately. Patient is advised that narcotics can impaired judgment and one should not drive or operate heavy machinery while taking these medications. Never share these medications with anybody and do not leave them unattended. They will not be replaced under any circumstances. (7) Hypertension: Code(s): I10 - Essential (primary) hypertension Qualifiers: Hypertension type: essential hypertension Qualified Code(s): I10 - Essential (primary) hypertension Plan: Continue with blood pressure medication. Decrease salt intake and exercise patient on nifedipine 60 mg once a day metoprolol 25 mg once a day lisinopril 2.5 mg once a day (8) Hypokalemia: Code(s): E87.6 - Hypokalemia (9) Erectile dysfunction associated with type 2 diabetes mellitus: Code(s): E11.69 - Type 2 diabetes mellitus with other specified complication; N52.1 - Erectile dysfunction due to diseases classified elsewhere Orders: Orders Influenza [id number] Immunization Today Z23 - Encounter for immunization Basic Metabolic Panel Today E87.6 - Hypokalemia Referrals Urology Referral C67.9 - Malignant neoplasm of bladder, unspecified, E11.69 - Type 2 diabetes mellitus with other specified complication, N52.1 - Erectile dysfunction due to diseases classified elsewhere Coding Level of Care Code Est Pt Level 4 (50522) Diagnoses Type 2 diabetes mellitus with hyperglycemia E11.65 Bladder cancer C67.9 GERD (gastroesophageal reflux disease) K21.9 CAD (coronary artery disease) I25.10 Dyslipidemia E78.5 Postlaminectomy syndrome, lumbar M96.1 Essential hypertension I10 Hypertension type: essential hypertension Hypokalemia E87.6 Erectile dysfunction associated with type 2 diabetes mellitus E11.69; N52.1 Additional Codes PHQ-9 - 13110 - PHQ-9 Billing: ([id number])
== END 2023-05-26 11:34 | disposition home or self-care (01) ==
PROVIDERS: PCP Internal Medicine; Visit Provider Internal Medicine
DX: E11.65 Type 2 diabetes mellitus with hyperglycemia (principal); C67.9 Malignant neoplasm of bladder, unspecified; E11.69 Type 2 diabetes mellitus with other specified complication; K21.9 Gastro-esophageal reflux disease without esophagitis; I25.10 Atherosclerotic heart disease of native coronary artery without angina pectoris; E78.5 Hyperlipidemia, unspecified; M96.1 Postlaminectomy syndrome, not elsewhere classified; I10 Essential (primary) hypertension; E87.6 Hypokalemia; N52.1 Erectile dysfunction due to diseases classified elsewhere; Z23 Encounter for immunization
CPT/HCPCS: 90471; 90686; 99214

== ENCOUNTER 2023-08-13 12:14 | Outpatient (AMB) | payer OTHER, SELFPAY ==
[2023-08-13 12:20] VITALS: BP 132/86; PULSE 75; O2SAT 98; BMI 24.7
--- NOTE | 2023-08-13 12:20 | MHC.PC.OV ---
Vital Signs 08/13/23 12:20 Height 5 ft 9 in Weight 167 lb 2 oz BMI 24.7 BP 132/86 Blood Pressure Location Lt brachial Position Sitting Pulse 75 Pulse Source Pulse Oximeter Pulse Oximetry (%) 98 Oxygen Delivery Method Room Air Intake Visit Reasons: PE Intake Note: Patient is here today for a physical. District Superintendent Required: No Accompanied by: Self / Same As Patient Allergies No Known Allergies [No Known Allergies*] Allergy (Verified 08/13/23 12:23) Medication List - Last Reconciled 08/13/23 by Yue Daley MD atorvastatin 40 mg PO DAILY 90 days blood sugar diagnostic ([employer] Style Ultra Test strips) DIRECTED THREE TIMES A DAY blood sugar diagnostic As directed three times a day blood-glucose meter (Share [employer] Style Ultra2 Meter kit) test 3 times per day empagliflozin (Jardiance) 10 mg PO DAILY lancets ([employer] Delica Lancets) Test 3 times daily lisinopril 2.5 mg PO DAILY 90 days metoprolol succinate ER 25 mg (1/2 x 50 mg) PO DAILY 90 days nifedipine ER 60 mg PO DAILY 90 days omeprazole 20 mg PO DAILY 90 days oxycodone-acetaminophen 5-325 mg 1 tab PO BID PRN 30 days pen needle, diabetic Once a day [rollator As directed] sucralfate (Carafate) 1 g PO BID 90 days [Three Wheel Scooter As directed] zolpidem 10 mg PO BEDTIME 90 days Tobacco use date assessed: 08/13/23 Fall risk assessment: No Falls in past year Last assessed Fall Risk: 08/13/23 Dental Screening Dental Screen Date: 08/13/23 Did you have a dental visit in the last 12 months?: Yes Did you have a dental problem in the last 6 months where you did not have access to dental care?: No Was dental information given to patient?: Patient has dentist HPI PE HPI Details 67-year-old male with diabetes mellitus history of urinary bladder cancer GERD coronary artery disease hypercholesterolemia lumbar post laminectomy syndrome hypertension coming in for physical exam last seen in May 2023 patient's colonoscopy is up-to-date April 2022 10 years PFS Medical History Acid reflux Annual physical exam Diabetic nephropathy associated with type 2 diabetes mellitus Diabetic polyneuropathy associated with type 2 diabetes mellitus Diabetic retinopathy associated with type 2 diabetes mellitus Dyslipidemia Hypertension Hypoglycemia unawareness associated with type 2 diabetes mellitus Right knee pain Type 2 diabetes mellitus with hyperglycemia Surgical History Hx of ileostomy History of esophagogastroduodenoscopy (EGD) Hx of colonoscopy History of lumbar fusion Hx of nephrostomy Hx of bladder cancer History of back surgery Family History Father No problems noted. Mother Myocardial infarct Social History (Updated 08/13/23 @ 12:37 by Yue Daley MD) Household Members: Spouse Housing: Apartment Alcohol intake: current Alcohol intake frequency: does not drink Comment: 1 a month 2-4 shots Patient Tobacco Use Status: Former Tobacco user Quit Date: 10 yrs ago Tobacco use type: Cigarette Years Smoked: quit 2010 e-Cigarette/Vaping Use: Never Used Second Hand Smoke Exposure: Yes Substance Use Type: Marijuana service: No Current occupational status: disabled Cognitive needs: No Hearing needs: No Vision needs: No Questionnaire PHQ-9 Over the last 2 weeks, how often have you been bothered by any of the following problems? 1. Little interest or pleasure in doing things: not at all 2. Feeling down, depressed, or hopeless: not at all 3. Trouble falling or staying asleep, or sleeping too much: not at all 4. Feeling tired or having little energy: not at all 5. Poor appetite or overeating: not at all 6. Feeling bad about yourself - or that you are a failure or have let yourself or your family down: not at all 7. Trouble concentrating on things, such as reading the newspaper or watching television: not at all 8. Moving or speaking so slowly that other people could have noticed. Or the opposite - being so fidgety or restless that you have been moving around a lot more than usual: not at all 9. Thoughts that you would be better off or of hurting yourself in some way: not at all Total score: 0 Depression Screening Interpretation: Negative Depression Screening Done: Yes 97516 - PHQ-9 Billing: Yes Source: Developed by Drs. Dimitri Fontaine, Janine Powell, Rajeev Guerra and colleagues, with an educational brooke from [employer]. Thrive Questionnaire Date Thrive assessed: 08/13/23 I am a: Patient What is your living situation today?: I have a steady place to live Within the past 12 months, did the food you bought not last and you didn't have the money to get more?: Never true Within the past 12 months, did you worry whether your food would run out before you got money to buy more?: Never true Do you have trouble paying for medicines?: No Do you have trouble getting transportation to medical appointments?: No Do you have trouble paying your heating and electricity bill?: No Do you have trouble taking care of your child, family member or friend?: No Do you have trouble with day-to-day activities such as bathing, preparing meals, shopping, managing finances, etc.?: No Are you currently unemployed and looking for a job?: No Are you interested in more education?: No Please select the resources that you would like help with: None Currently or been in a relationship where the following occur: no concerns reported THRIVE Score: 0 AUDIT C Alcohol Use Questionnaire (AUDIT-C) 1. How often do you have a drink containing alcohol?: 2-4 times a month 2. How many drinks containing alcohol do you have on a typical day when you are drinking?: 1 or 2 3. How often do you have six or more drinks on one occasion?: Monthly Total Score: 4 LADARIUS-7 AMB Questionnaire LADARIUS-7 Date LADARIUS - 7 assessed: 08/13/23 Feeling nervous, anxious, or on edge: 0 = Not at all Not being able to stop or control worryin = Not at all Worrying too much about different things: 0 = Not at all Trouble relaxin = Not at all Being so restless that it is hard to sit still: 0 = Not at all Becoming easily annoyed or irritable: 0 = Not at all Feeling afraid as if something awful might happen: 0 = Not at all Total LADARIUS-7 score (0-4 normal; 5-9 mild; 10-14 moderate; 15-21 severe): 0 Source: Developed by Drs. Dimitri Fontaine, Janine Powell, Rajeev Guerra and colleagues, with an educational brooke from [employer]. LADARIUS-7 Assessment Billing LADARIUS-7 Assessment Tool: LADARIUS-7 Assessment 66268 Review of Systems Const Denies poor appetite and Denies weakness Eyes Denies no additional complaints ENT Reports Normal hearing present, Denies dizziness, Denies nasal congestion, Denies tinnitus and Denies sore throat Card Denies chest pain, Denies syncope, Denies rapid heart rate and Denies dyspnea Resp Denies cough and Denies dyspnea GI Denies change in stool character, Reports constipation, Denies diarrhea, Denies nausea and Denies vomiting Denies dysuria and Denies urinary frequency Neuro Reports Normal hearing present, Denies confusion, Denies dizziness, Denies syncope and Denies weakness Psych Denies confusion Physical exam (Primary Care) Vital Signs: Last Vital Signs Pulse 75 08/13/23 12:20 BP 132/86 08/13/23 12:20 Pulse Ox 98 08/13/23 12:20 Oxygen Delivery Method Room Air 08/13/23 12:20 BMI result Body Mass Index 24.7 Tobacco/Smoking Status: Tobacco use Status Tobacco use date assessed 08/13/23 08/13/23 12:26 Patient Tobacco Use Status Former Tobacco user 08/13/23 12:26 Tobacco use type Cigarette 08/13/23 12:26 e-Cigarette/Vaping Use Never Used 08/13/23 12:26 PHQ-9: PHQ-9 Score PHQ-9: Total score 0 08/13/23 12:26 Depression Screening Interpretation: Negative Thrive Assessment: Date of Thrive Assessment Date Thrive assessed 08/13/23 08/13/23 12:26 Currently or been in a relationship where the following occur: no concerns reported Const General: No confusion Orientation/consciousness: No confusion HENMT Head: Yes normocephalic Ears: external ears normal and TM's normal bilaterally Face and sinus: Yes normal facial exam Mouth: moist mucous membranes Throat: Yes tonsils normal Eyes Conjunctivae: conjunctivae normal Pupils: Equal, round and reactive pupils present and Pupil accommodation reflex normal Direct Ophthalmoscopy: normal light reflex Neck Neck: No lymphadenopathy Thyroid: Thyroid normal Chest Chest palpation & inspection: normal inspection of the chest Resp Effort & Inspection: normal respiratory effort and no audible wheezes Auscultation: clear to auscultation bilaterally, no crackles, no wheezes and lung sounds not diminished Cardio Rate: regular rate Rhythm: regular rhythm Peripheral pulses: radial pulses present and dorsalis pedis present GI Other: Declined rectal exam, right lower abdomen has the bladder bag cystostomy Palpation (GI): no masses Auscultation: normal bowel sounds and normoactive bowel sounds Rectal Exam - Male: Yes deferred Male General Exam: Yes normal external exam Skin General skin exam: no rashes or lesions noted Rashes: no rashes Neuro General: No confusion Cranial nerves: Yes Equal, round and reactive pupils present and Yes Normal hearing present Cognition (Neuro): normal cognition Gait exam (Neuro): Normal gait present Motor exam (neuro): 5/5 motor strength present throughout Deep tendon reflexes (DTR's): Right brachioradialis reflex intensity grade: 2+, Left brachioradialis reflex intensity grade: 2+, Right patellar reflex intensity grade: 2+ and Left patellar reflex intensity grade: 2+ Extrem General: No edema Results AMB Hemoglobin A1c AMB Hemoglobin A1c 7.5 % Last Edit by LETITIA Lopez on 08/13/23 12:28 Results Reviewed Results Reviewed: Laboratory Last Values Hgb A1c (Clinic) 7.5 % (4.0-6.0) H 08/13/23 12:16 Assessment and Plan Assessment & Plan (1) Annual physical exam: Code(s): Z00.00 - Encounter for general adult medical examination without abnormal findings (2) Type 2 diabetes mellitus with hyperglycemia: Comment: Dr. Eason Code(s): E11.65 - Type 2 diabetes mellitus with hyperglycemia Plan: Decrease the amount of carbohydrate intake, pasta, bread, rice and potatoes are all sugar and that is aside from all the sweet stuff, remember that fruits are good but they are Sweet also. Hemoglobin A1c goal of less than 6.5. Patient on Jardiance metformin. Discussed with the patient the need to bring the blood sugars better increase Jardiance done (3) CAD (coronary artery disease): Comment: 2013 (as per patient) Code(s): I25.10 - Atherosclerotic heart disease of [place] coronary artery without angina pectoris Plan: Control the cholesterol, weight, blood pressure, diabetes continue with aspirin (4) Postlaminectomy syndrome, lumbar: Code(s): M96.1 - Postlaminectomy syndrome, not elsewhere classified Plan: Narcotic pain meds: Is being prescribed with the understanding that these medications are potentially addictive and should be used only when absolutely necessary and must always be secured. Any remaining pills should be safely disposed off appropriately. Patient is advised that narcotics can impaired judgment and one should not drive or operate heavy machinery while taking these medications. Never share these medications with anybody and do not leave them unattended. They will not be replaced under any circumstances. (5) Hypertension: Code(s): I10 - Essential (primary) hypertension Qualifiers: Hypertension type: essential hypertension Qualified Code(s): I10 - Essential (primary) hypertension Plan: Continue with blood pressure medication. Decrease salt intake and exercise takes nifedipine 60 mg once a day metoprolol 25 mg once a day lisinopril 2.5 mg once a day (6) GERD (gastroesophageal reflux disease): Code(s): K21.9 - Gastro-esophageal reflux disease without esophagitis Plan: Avoid the foods that causes that usually spicy foods, tomato products, juices, coffee, soda and foods that your sensitive to. After eating do not lie down, allow 3-4 hours before in lie down. And keep the head of bed above 30 degrees to avoid the acid from going up. (7) Hypercholesterolemia: Code(s): E78.00 - Pure hypercholesterolemia, unspecified Plan: Avoid fried foods, chicken skin, eggs, butter margarine, pastries and meat. Be it pork or beef they have a lot of cholesterol LDL goal of less than 70 and triglyceride of less than 150. On atorvastatin 40 mg once a day Orders: Orders AMB Hemoglobin A1c Today E11.65 - Type 2 diabetes mellitus with hyperglycemia Medications: Changed From empagliflozin (Jardiance) 10 mg PO DAILY 30 tabs 3RF E11.65 - Type 2 diabetes mellitus with hyperglycemia To empagliflozin 25 mg PO DAILY 90 days 90 tabs 2RF E11.65 - Type 2 diabetes mellitus with hyperglycemia Coding Level of Care Code Est Pt Prev Care >65y(50277) Diagnoses Annual physical exam Z00.00 Type 2 diabetes mellitus with hyperglycemia E11.65 CAD (coronary artery disease) I25.10 Postlaminectomy syndrome, lumbar M96.1 Essential hypertension I10 Hypertension type: essential hypertension GERD (gastroesophageal reflux disease) K21.9 Hypercholesterolemia E78.00 Additional Codes LADARIUS-7 Assessment Billing - LADARIUS-7 Assessment Tool: LADARIUS-7 Assessment [id number] ([id number])
== END 2023-08-13 12:51 | disposition home or self-care (01) ==
PROVIDERS: Visit Provider Internal Medicine
DX: Z00.00 Encounter for general adult medical examination without abnormal findings (principal); E11.65 Type 2 diabetes mellitus with hyperglycemia; I25.10 Atherosclerotic heart disease of native coronary artery without angina pectoris; M96.1 Postlaminectomy syndrome, not elsewhere classified; I10 Essential (primary) hypertension; K21.9 Gastro-esophageal reflux disease without esophagitis; E78.00 Pure hypercholesterolemia, unspecified
CPT/HCPCS: 83036; 99397

== ENCOUNTER 2023-11-16 12:19 | Outpatient (AMB) | payer OTHER, SELFPAY ==
--- NOTE | 2023-11-16 12:21 | A.OFFPC_ITS ---
Vital Signs 11/16/23 12:23 Height 5 ft 9 in Weight 178 lb BMI 26.3 BP 106/70 Blood Pressure Location Lt brachial Position Sitting Pulse 90 Pulse Source Pulse Oximeter Pulse Oximetry (%) 98 Oxygen Delivery Method Room Air Intake Visit Reasons: DM Allergies metformin Adverse Reaction (Intermediate, Verified 11/16/23 12:34) stomach pain Medication List - Last Reconciled 11/16/23 by Yue Daley MD aspirin (Adult Aspirin Regimen) 81 mg PO DAILY atorvastatin 40 mg PO DAILY 90 days blood sugar diagnostic ([employer] Ultra Test strips) DIRECTED THREE TIMES A DAY blood sugar diagnostic As directed three times a day blood-glucose meter (Better Walk Ultra2 Meter kit) test 3 times per day colostomy bag, non-sterile As directed empagliflozin 25 mg PO DAILY 90 days lancets ([employer] Delica Lancets) Test 3 times daily lisinopril 2.5 mg PO DAILY 90 days metoprolol succinate ER 25 mg (1/2 x 50 mg) PO DAILY 90 days nifedipine ER 60 mg PO DAILY 90 days omeprazole 20 mg PO DAILY 90 days oxycodone-acetaminophen 5-325 mg 1 tab PO BID PRN 30 days pen needle, diabetic Once a day [rollator As directed] sucralfate (Carafate) 1 g PO BID 90 days [Three Wheel Scooter As directed] zolpidem 10 mg PO BEDTIME 90 days Tobacco use date assessed: 11/16/23 Fall risk assessment: No Falls in past year Last assessed Fall Risk: 11/16/23 Dental Screening Dental Screen Date: 11/16/23 Did you have a dental visit in the last 12 months?: Yes Did you have a dental problem in the last 6 months where you did not have access to dental care?: No Was dental information given to patient?: Patient has dentist HPI DM HPI Details 68-year-old male with diabetes mellitus coronary artery disease hypertension hypercholesterolemia GERD with a history of lumbar post laminectomy syndrome on narcotic pain medication coming in for follow-up. Patient was last seen in July 2023. Colonoscopy is up-to-date April 2022. Last blood work done in March 2023 with an LDL of 62 PFSH Medical History Acid reflux Annual physical exam Diabetic nephropathy associated with type 2 diabetes mellitus Diabetic polyneuropathy associated with type 2 diabetes mellitus Diabetic retinopathy associated with type 2 diabetes mellitus Dyslipidemia Hypertension Hypoglycemia unawareness associated with type 2 diabetes mellitus Right knee pain Type 2 diabetes mellitus with hyperglycemia Surgical History Hx of ileostomy History of esophagogastroduodenoscopy (EGD) Hx of colonoscopy History of lumbar fusion Hx of nephrostomy Hx of bladder cancer History of back surgery Family History Father No problems noted. Mother Myocardial infarct Social History (Updated 08/13/23 @ 12:37 by Yue Daley MD) Household Members: Spouse Housing: Apartment Alcohol intake: current Alcohol intake frequency: does not drink Comment: 1 a month 2-4 shots Patient Tobacco Use Status: Former Tobacco user Quit Date: 10 yrs ago Tobacco use type: Cigarette Years Smoked: quit 2010 e-Cigarette/Vaping Use: Never Used Second Hand Smoke Exposure: Yes Substance Use Type: Marijuana service: No Current occupational status: disabled Cognitive needs: No Hearing needs: No Vision needs: No Questionnaire PHQ-9 Over the last 2 weeks, how often have you been bothered by any of the following problems? 1. Little interest or pleasure in doing things: not at all 2. Feeling down, depressed, or hopeless: not at all 3. Trouble falling or staying asleep, or sleeping too much: not at all 4. Feeling tired or having little energy: not at all 5. Poor appetite or overeating: not at all 6. Feeling bad about yourself - or that you are a failure or have let yourself or your family down: not at all 7. Trouble concentrating on things, such as reading the newspaper or watching television: not at all 8. Moving or speaking so slowly that other people could have noticed. Or the opposite - being so fidgety or restless that you have been moving around a lot more than usual: not at all 9. Thoughts that you would be better off or of hurting yourself in some way: not at all Total score: 0 Depression Screening Interpretation: Negative Depression Screening Done: Yes 52552 - PHQ-9 Billing: Yes Source: Developed by Drs. Dimitri Fontaine, Janine B.WRajeev Floyd and colleagues, with an educational brooke from [employer]. Thrive Questionnaire Date Thrive assessed: 11/16/23 I am a: Patient What is your living situation today?: I have a steady place to live Within the past 12 months, did the food you bought not last and you didn't have the money to get more?: Never true Within the past 12 months, did you worry whether your food would run out before you got money to buy more?: Never true Do you have trouble paying for medicines?: No Do you have trouble getting transportation to medical appointments?: No Do you have trouble paying your heating and electricity bill?: No Do you have trouble taking care of your child, family member or friend?: No Do you have trouble with day-to-day activities such as bathing, preparing meals, shopping, managing finances, etc.?: No Are you currently unemployed and looking for a job?: No Are you interested in more education?: No Please select the resources that you would like help with: None Currently or been in a relationship where the following occur: no concerns reported THRIVE Score: 0 AUDIT C Alcohol Use Questionnaire (AUDIT-C) 1. How often do you have a drink containing alcohol?: 2-4 times a month 2. How many drinks containing alcohol do you have on a typical day when you are drinking?: 1 or 2 3. How often do you have six or more drinks on one occasion?: Monthly Total Score: 4 LADARIUS-7 AMB Questionnaire LADARIUS-7 Date LADARIUS - 7 assessed: 08/13/23 Source: Developed by Drs. Dimitri Fontaine, Rajeev Smith and colleagues, with an educational brooke from [employer]. Physical exam (Primary Care) Vital Signs: Last Vital Signs Pulse 90 11/16/23 12:23 BP 106/70 11/16/23 12:23 Pulse Ox 98 11/16/23 12:23 Oxygen Delivery Method Room Air 11/16/23 12:23 BMI result Body Mass Index 26.3 Tobacco/Smoking Status: Tobacco use Status Tobacco use date assessed 11/16/23 11/16/23 12:24 Patient Tobacco Use Status Former Tobacco user 11/16/23 12:22 Tobacco use type Cigarette 11/16/23 12:22 e-Cigarette/Vaping Use Never Used 11/16/23 12:22 PHQ-9: PHQ-9 Score PHQ-9: Total score 0 11/16/23 12:32 Depression Screening Interpretation: Negative Thrive Assessment: Date of Thrive Assessment Date Thrive assessed 11/16/23 11/16/23 12:24 Currently or been in a relationship where the following occur: no concerns reported Const General: alert; No acute distress Eyes Conjunctivae: conjunctivae normal Resp Auscultation: clear to auscultation bilaterally Cardio Rate: regular rate Rhythm: regular rhythm GI Inspection: Yes normal to inspection Extrem General: Yes normal to inspection and No edema Results AMB Hemoglobin A1c AMB Hemoglobin A1c 6.9 % Last Edit by Vicky Javier CMA on 11/16/23 12 :39 Assessment and Plan Assessment & Plan (1) Type 2 diabetes mellitus with hyperglycemia: Comment: Dr. Eason Code(s): E11.65 - Type 2 diabetes mellitus with hyperglycemia Plan: Decrease the amount of carbohydrate intake, pasta, bread, rice and potatoes are all sugar and that is aside from all the sweet stuff, remember that fruits are good but they are Sweet also. Hemoglobin A1c goal of less than 7.0. Patient is on Jardiance 25 mg once a day (2) Hypertension: Code(s): I10 - Essential (primary) hypertension Qualifiers: Hypertension type: essential hypertension Qualified Code(s): I10 - Essential (primary) hypertension Plan: Continue with blood pressure medication. Decrease salt intake and exercise patient on nifedipine 60 mg once a day metoprolol 25 mg once a day lisinopril 2.5 mg once a day (3) Dyslipidemia: Code(s): E78.5 - Hyperlipidemia, unspecified Plan: Avoid fried foods, chicken skin, eggs, butter margarine, pastries and meat. Be it pork or beef they have a lot of cholesterol patient on atorvastatin 40 mg once a day March 2023 last blood work LDL is at goal less than 70 and triglyceride of less than 150 (4) CAD (coronary artery disease): Comment: 2013 (as per patient) Code(s): I25.10 - Atherosclerotic heart disease of [place] coronary artery without angina pectoris Plan: Control the cholesterol, weight, blood pressure, diabetes with the patient regarding aspirin for patients with coronary artery disease it is advisable to be on baby aspirin once a day (5) GERD (gastroesophageal reflux disease): Code(s): K21.9 - Gastro-esophageal reflux disease without esophagitis Plan: Avoid the foods that causes that usually spicy foods, tomato products, juices, coffee, soda and foods that your sensitive to. After eating do not lie down, allow 3-4 hours before in lie down. And keep the head of bed above 30 degrees to avoid the acid from going up. (6) Bladder cancer: Comment: Cystoprostatectomy 2017 [facility], STOMA placement RLQ [facility] Code(s): C67.9 - Malignant neoplasm of bladder, unspecified Plan: Reminded to follow-up with urology (7) Postlaminectomy syndrome, lumbar: Code(s): M96.1 - Postlaminectomy syndrome, not elsewhere classified Plan: Narcotic pain meds: Is being prescribed with the understanding that these medications are potentially addictive and should be used only when absolutely necessary and must always be secured. Any remaining pills should be safely disposed off appropriately. Patient is advised that narcotics can impaired judgment and one should not drive or operate heavy machinery while taking these medications. Never share these medications with anybody and do not leave them unattended. They will not be replaced under any circumstances. Orders: Orders AMB Hemoglobin A1c Today Z13.9 - Encounter for screening, unspecified Medications: New aspirin (Adult Aspirin Regimen) 81 mg PO DAILY 30 tabs 0RF I25.10 - Atherosclerotic heart disease of [place] coronary artery without angina pectoris Refilled oxycodone-acetaminophen 5-325 mg 1 tab PO BID 30 days PRN 60 tabs 0RF pain Z98.1 - Arthrodesis status Coding Level of Care Code Est Pt Level 4 (30429) Diagnoses Type 2 diabetes mellitus with hyperglycemia E11.65 Essential hypertension I10 Hypertension type: essential hypertension Dyslipidemia E78.5 CAD (coronary artery disease) I25.10 GERD (gastroesophageal reflux disease) K21.9 Bladder cancer C67.9 Postlaminectomy syndrome, lumbar M96.1
[2023-11-16 12:23] VITALS: BP 106/70; PULSE 90; O2SAT 98; BMI 26.3
== END 2023-11-16 12:43 | disposition home or self-care (01) ==
PROVIDERS: PCP Internal Medicine; Visit Provider Internal Medicine
DX: E11.65 Type 2 diabetes mellitus with hyperglycemia (principal); I10 Essential (primary) hypertension; E78.5 Hyperlipidemia, unspecified; I25.10 Atherosclerotic heart disease of native coronary artery without angina pectoris; K21.9 Gastro-esophageal reflux disease without esophagitis; M96.1 Postlaminectomy syndrome, not elsewhere classified
CPT/HCPCS: 83036; 99214

== ENCOUNTER 2024-01-13 08:37 | Outpatient (AMB) | payer OTHER, SELFPAY ==
--- NOTE | 2024-01-13 08:40 | MHC.OFFVIS ---
Intake Visit Reasons: ED/hx bladder cancer(Confirmed) Intake Note: New patient is present to re-establish care for HX of Bladder Ca/Ed Last saw Dr Wilcox in 2020. Patient has Urostomy Grape Pruner Required: No Allergies metformin Adverse Reaction (Intermediate, Verified 11/16/23 12:34) stomach pain HPI Comments Details: Luan is a pleasant male. He is here for the following urologic issues - bladder cancer - erectile dysfunction Returns to office Last seen early 2020 Significant improvement in diabetes control since that date. No longer on insulin. Has lost over 50 lb. Bladder cancer - cysto prostatectomy 2016 Muscle invasive bladder cancer Cysto prostatectomy 2016 [facility] Anastomotic revision was required Imaging - October 2020 CT scan normal per patient Stoma good placement with adequate protrusion Therapeutic plan continue with surveillance Erectile dysfunction Previous assessment Non responsive to oral medication Non responsive to injectables Had previously decided on implantable prosthetic but was canceled secondary to high HbA1c HbA1c - 04/17 6.8% Can schedule for prosthetic placement [facility] Medical History Acid reflux Annual physical exam Diabetic nephropathy associated with type 2 diabetes mellitus Diabetic polyneuropathy associated with type 2 diabetes mellitus Diabetic retinopathy associated with type 2 diabetes mellitus Dyslipidemia Hypertension Hypoglycemia unawareness associated with type 2 diabetes mellitus Right knee pain Type 2 diabetes mellitus with hyperglycemia Surgical History Hx of ileostomy History of esophagogastroduodenoscopy (EGD) Hx of colonoscopy History of lumbar fusion Hx of nephrostomy Hx of bladder cancer History of back surgery Family History Father No problems noted. Mother Myocardial infarct Social History (Updated 08/13/23 @ 12:37 by Yue Daley MD) Household Members: Spouse Housing: Apartment Alcohol intake: current Alcohol intake frequency: does not drink Comment: 1 a month 2-4 shots Patient Tobacco Use Status: Former Tobacco user Tobacco use type: Cigarette Years Smoked: quit 2010 e-Cigarette/Vaping Use: Never Used Second Hand Smoke Exposure: Yes Substance Use Type: Marijuana service: No Current occupational status: disabled Cognitive needs: No Hearing needs: No Vision needs: No Review of Systems Const Denies chills and Denies fever(s) Card Reports no additional complaints and Denies syncope Resp Denies cough GI Denies abdominal pain and Denies heartburn Reports as per HPI and Denies change in libido Neuro Denies syncope Psych Denies change in libido Endo Denies change in libido Physical Exam Const General: cooperative, healthy appearing, comfortable and no acute distress Orientation/consciousness: patient oriented x3 HEENT Face and sinus: Yes normal facial exam Mouth: moist mucous membranes Neck Neck: Yes normal visual inspection, Yes full ROM and Yes trachea midline Chest Chest palpation & inspection: normal inspection of the chest Resp Effort & Inspection: normal respiratory effort, able to speak in complete sentences and no respiratory distress GI Inspection: Yes normal to inspection Back/Spine/Pelvis Cervical Spine: normal cervical lordosis Thoracic/Lumbar Spine: thoracic and lumbar spine normal to inspection Skin General skin exam: no rashes or lesions noted Neuro General: patient oriented x3, gait normal, tone normal and moves all extremities Extrem General: Yes normal to inspection and Yes capillary refill normal Assessment & Plan Assessment & Plan (1) Bladder cancer: Comment: Cystoprostatectomy 2017 [facility], STOMA placement RLQ [facility] Code(s): C67.9 - Malignant neoplasm of bladder, unspecified Category: Medical (2) Erectile dysfunction associated with type 2 diabetes mellitus: Code(s): E11.69 - Type 2 diabetes mellitus with other specified complication; N52.1 - Erectile dysfunction due to diseases classified elsewhere Category: Medical Plan Risks, benefits and alternatives to therapy were discussed. These include but are not limited to infection, bleeding, damage to local organs and tissues, need for further interventions. Anesthetic risks regarding cardiac arrhythmia, blood clots, and potential mortality were discussed. The patient understands the typical recovery time and the outpatient nature of the procedure. After consideration of these risks the patient gives full informed consent and they wish to move ahead with the procedure. Penile prosthetic placement Patient Instructions: Imaging studies, laboratory and physical exam results were discussed and reviewed in detail. No major barriers to patient understanding were identified. An opportunity to ask questions regarding the treatment plan was provided. All questions were answered. The patient expressed understanding and agreement with the above treatment plan. The patient is aware they should contact our office by phone for worsening of their current condition or the appearance of new urologic symptoms. Compliance is encouraged with any medications and followup testing that is ordered. It is a privilege to participate in the urologic care of your patient. If you have any questions or concerns regarding treatment for the above conditions, or other urologic issues, please do not hesitate to contact me. The office telephone contact is [phone]. This note is constructed using voice recognition software. While every effort has been made to ensure accuracy farm tractor operator errors may have been included. Yours sincerely, Dr Abhay Wilcox MD, [facility] - Urology Providers of Expert, Compassionate Care for the Genitourinary System Coding Level of Care Code New Pt Level 4 (55584) Diagnoses Bladder cancer C67.9 Erectile dysfunction associated with type 2 diabetes mellitus E11.69; N52.1
== END 2024-01-13 08:57 | disposition home or self-care (01) ==
PROVIDERS: PCP Internal Medicine; Visit Provider Urology
DX: C67.9 Malignant neoplasm of bladder, unspecified (principal); E11.69 Type 2 diabetes mellitus with other specified complication; N52.1 Erectile dysfunction due to diseases classified elsewhere
CPT/HCPCS: 99214

== ENCOUNTER → 2024-01-13 08:37 | Outpatient (BNVA) | payer OTHER, SELFPAY | PROVIDERS: PCP Internal Medicine; Visit Provider Urology | DX: E11.69 Type 2 diabetes mellitus with other specified complication (principal); N52.1 Erectile dysfunction due to diseases classified elsewhere; C67.9 Malignant neoplasm of bladder, unspecified | CPT/HCPCS: 99212 ==

== ENCOUNTER 2024-04-02 13:49 | Emergency (ER) | payer OTHER, SELFPAY ==
--- NOTE | ~2024-04-02 | XR_ITS ---
EXAMINATION: XR CHEST CLINICAL INFORMATION: Palpitations, pain COMPARISON: Chest x-ray on 03/20/2019 TECHNIQUE: 2 views of the chest were obtained. FINDINGS: No significant abnormality is noted involving the heart, lungs, mediastinum, bony thorax or soft tissues. XR/XR chest 2V IMPRESSION: Unremarkable examination. Electronically signed by: Savannah Hernandez MD 04/02/2024 03:22 PM EDT RP
[2024-04-02 13:53] VITALS: BP 126/89; PULSE 82; RESP 19; TEMP 36.6; O2SAT 99; BMI 24.1
--- NOTE | 2024-04-02 13:54 | ED.GENADULT ---
HPI - General Adult General Chief complaint: General Medical Stated complaint: High blood sugar no insulin Time Seen by Provider: 04/02/24 17:09 Source: patient Mode of arrival: ambulatory Limitations: no limitations History of Present Illness ED Provider: Dr. Spring Babb HPI narrative: patient comes to the emergency room complaining of high blood sugar for 4-5 days. Patient takes Jardiance every day a 25 mg, patient states he is compliant with his medication. For the last 4-5 days, patient states that his glucose was in the 500s when he usually has a glucose level of 130-140 maximum. Patient denies medication noncompliance or any recent illnesses. Patient complaining of occasional palpitations, no chest pain or shortness of breath. Denies URI Or UTI symptoms. Related Data Previous Rx's ?Medication ?Instructions ?Recorded blood sugar diagnostic #100 ea 09/09/21 rollator #1 ea 02/04/22 lancets 33 gauge (OneTouch Delica #100 ea 07/14/22 Lancets) blood-glucose meter (OneTouch #1 ea 11/16/22 Ultra2 Meter kit) blood sugar diagnostic (OneTouch #100 strips 11/18/22 Ultra Test strips) pen needle, diabetic 32 gauge x #50 ea 11/18/22 Three Wheel Scooter #1 ea 01/08/23 sucralfate 1 gram tablet (Carafate) 1 g PO BID 90 days #180 tabs 04/16/23 colostomy bag, non-sterile 1 07/29 #10 ea 08/20/23 (12 ) atorvastatin 40 mg tablet 40 mg PO DAILY 90 days #90 tabs 11/14/23 aspirin 81 mg tablet,delayed 81 mg PO DAILY #30 tabs 11/16/23 release (Adult Aspirin Regimen) metoprolol succinate 50 mg 25 mg (1/2 x 50 mg) PO DAILY 90 12/15/23 tablet,extended release 24 hr days #45 tabs lisinopril 2.5 mg tablet 2.5 mg PO DAILY 90 days #90 tabs 01/11/24 zolpidem 10 mg tablet 10 mg PO BEDTIME 90 days #90 tabs 03/07/24 empagliflozin 25 mg tablet 25 mg PO DAILY 90 days #90 tabs 03/28/24 nifedipine 60 mg tablet,extended 60 mg PO DAILY 90 days #90 tabs 03/28/24 release 24 hr omeprazole 20 mg capsule,delayed 20 mg PO DAILY 90 days #90 caps 03/28/24 release oxycodone-acetaminophen 5 mg-325 1 tab PO BID PRN pain 30 days #60 03/28/24 mg tablet tabs metformin 500 mg tablet 500 mg PO BID #60 tabs 04/02/24 Allergies Allergy/AdvReac Type Severity Reaction Status Date / Time metformin AdvReac Intermediate stomach Verified 04/02/24 13:55 pain Review of Systems Review of Systems: Constitutional : No Weight loss, No Fever, No Chills, No Night Sweats, No Fatigue, No Malaise ENT/Mouth : No Hearing loss, No Ear Pain, No Nasal Congestion, No Sinus Pain, No Hoarseness, No sore throat, No Rhinorrhea, No Swallowing Difficulty Eyes: No Eye Pain, No Swelling, No Redness, No Foreign Body, No Discharge, No Vision Changes Cardiovascular : No Chest Pain, No SOB, No Dyspnea on Exertion, No Orthopnea, No Edema, complaining of intermittent mild Palpitations Respiratory : No Cough, No Sputum, No Wheezing, No Smoke Exposure, No Dyspnea Gastrointestinal : No Nausea, No Vomiting, No Diarrhea, No Constipation, No abdominal Pain, No Hematochezia, No Melena Genitourinary : no irregular bleeding, No Dysuria, No Urinary Frequency, No Hematuria, No Urinary Incontinence, No Urgency, No Flank Pain, No Urinary Flow Changes, No Hesitancy Musculoskeletal : No joint pain, No Myalgias, No Joint Swelling Skin : No Skin Lesions, No rash Neuro : No Weakness, No Numbness, No Paresthesias, No Loss of Consciousness, No Dizziness, No Headache Psych : No Anxiety/Panic, No Depression, No SI/HI/AH/VH, No Social Issues, Heme/Lymph: No Bruising, No Bleeding,No Lymphadenopathy Endocrine : No Polyuria, No Polydipsia, No Temperature Intolerance, complaining of high blood sugars [facility] Past Medical History Medical History Acid reflux Annual physical exam Diabetic nephropathy associated with type 2 diabetes mellitus Diabetic polyneuropathy associated with type 2 diabetes mellitus Diabetic retinopathy associated with type 2 diabetes mellitus Dyslipidemia Hypertension Hypoglycemia unawareness associated with type 2 diabetes mellitus Right knee pain Type 2 diabetes mellitus with hyperglycemia Surgical History Hx of ileostomy History of esophagogastroduodenoscopy (EGD) Hx of colonoscopy History of lumbar fusion Hx of nephrostomy Hx of bladder cancer History of back surgery Family History Family History Father No problems noted. Mother Myocardial infarct Social History Social History (Updated 08/13/23 @ 12:37 by Yue Daley MD) Household Members: Spouse Housing: Apartment Alcohol intake: current Alcohol intake frequency: holidays/special occasions only Comment: 1 a month 2-4 shots Patient Tobacco Use Status: Former Tobacco user Tobacco use type: Cigarette Years Smoked: quit 2011 Smoked in Last 30 Days: No e-Cigarette/Vaping Use: Never Used Second Hand Smoke Exposure: Yes Use of substances other than those prescribed or required for medical reasons: Yes Substance Use Type: Marijuana Substance Use Frequency: Chronic Longstanding Advance Directives: No Advance Directives Information Provided: No service: No Current occupational status: disabled Cognitive needs: No Hearing needs: No Vision needs: No Physical Exam ED Vital Signs: Vital Signs - 24 hr 04/02/24 13:53 04/02/24 16:00 04/02/24 17:56 Temperature 98 F 98.2 F 98.2 F Pulse Rate 82 66 65 Respiratory Rate 19 18 18 Blood Pressure 126/89 138/88 149/85 H Pulse Oximetry 99 97 100 Oxygen Delivery Method Room Air Room Air BMI result Body Mass Index 24.1 Const Other: Appearance: Alert. Oriented X3. No acute distress. Eyes: Pupils equal, round and reactive to light. ENT: Pharynx normal. Neck: Normal inspection. Neck supple. No lymph nodes noted. No crepitus CVS: Normal heart rate and rhythm. Pulses normal. Normal S1 and S2 Respiratory: No respiratory distress. Breath sounds normal. No Wheezing. No rales Abdomen: Soft and nontender. No rigidity. No distention. Skin: Skin warm and dry. Normal skin color. Normal skin turgor. Extremities: No lower extremity edema. No Lacerations. No Rash Neuro: Oriented X 3. No motor deficit. No sensory deficit. Moving all extremities. No slurred speech. CN 2 through 12 grossly intact Psych: calm, cooperative, normal affect Course Course Course Narrative: RME performed by Karina Hammer PA-C. Patient is a 68 year old assigned male at presenting to the emergency department with an elevated blood sugar and palpitations. Patient states over the last few days his sugar has been over 500 and he has felt palpitations at home. Detailed physical exam and review of systems are deferred to the cartography professor. EKG, labs, imaging, and swabs ordered. Patient placed back in the waiting room pending room availability and results. Medications Administered Discontinued Medications Generic Name Dose Route Start Last Admin Trade Name Freq PRN Reason Stop Dose Admin Sodium Chloride 1,000 mls @ 999 mls/hr 04/02/24 17:18 04/02/24 17:39 Ns IVCONT 04/02/24 18:18 999 mls/hr .Q1H1M ONE Administration Insulin Human Regular 5 unit 04/02/24 17:18 04/02/24 17:38 Insulin Regular, Human 100 Unit/Ml 10 Ml Vial IVPUSH 04/02/24 17:19 5 unit ONCE ONE Administration Medical Decision Making Medical Decision Making [facility] Narrative: my interpretation of EKG: Normal sinus rhythm, heart rate 78, no ST segment depression or elevation, no T-wave inversion, QTC 433 - my interpretation of labs: At baseline hematology, chemistry shows a creatinine of 1.42, glucose 311, troponin neg - chest x-ray my interpretation: No infiltrates - patient receiving IV fluids and 5 units of insulin. - Discussed with the patient adding metformin to Jardiance for better glycemic control - Patient's blood glucose improved to 168. Patient instructed to follow-up with his PCP - no arrhythmias detected, patient has not had palpitations in the emergency room. Differential Diagnosis Differential Diagnoses: The differential diagnosis associated with the presentation includes ( hyperglycemia, palpitations, PVCs) Admission/Observation Consideration of admission/observation: Escalation of care including admission/observation considered ( given patient's symptoms and labs, observation was considered) Lab Data [facility] Lab Attestation statement: I reviewed the patient's lab results. 04/02/24 14:11 04/02/24 14:11 Labs: Lab Results 04/02/24 04/02/24 Range/Units 14:11 17:56 WBC 11.2 H (4.8-10.8) X10*3/uL RBC 4.94 D (4.60-5.80) X10*6/uL Hgb 15.9 D (14.0-18.0) g/dl Hct 45.2 (42.0-52.0) % MCV 91.5 (80.0-98.0) fL MCH 32.2 (27.0-33.0) pg MCHC 35.2 (31.0-36.0) g/dl RDW 12.8 (11.0-16.0) % Plt Count 334 (160-400) X10*3/uL MPV 10.3 (9.4-12.4) fL Immature Gran % (Auto) 0.4 (0.0-0.4) % Neut % (Auto) 64.9 (45-73) % Lymph % (Auto) 24.3 (20-40) % [place] % (Auto) 8.5 (2-11) % Eos % (Auto) 1.3 (0-4) % Baso % (Auto) 0.6 (0-2) % Lymph # (Auto) 2.7 (1.2-4.9) X10*3/uL [place] # (Auto) 1.0 (0.1-1.2) X10*3/uL Eos # (Auto) 0.1 (0.0-0.4) X10*3/uL Baso # (Auto) 0.1 (0.0-0.2) X10*3/uL Abs Immat Gran (auto) 0.04 H (0.00-0.03) X10*3/uL Absolute Neuts (auto) 7.3 (2.0-8.3) x10*3/uL Absolute Nucleated RBC 0.000 (0.0-0.012) X10*3/uL Nucleated RBC % (auto) 0.0 (0.0-0.2) /100WBC Sodium 140 (135-145) mmol/L Potassium 5.0 (3.3-5.1) mmol/L Chloride 100 (96-108) mmol/L Carbon Dioxide 24 (22-29) mmol/L Anion Gap 21 H (12-20) BUN 23 H (9-16) mg/dL Creatinine 1.42 H (0.5-1.4) mg/dL Estim Creat Clear Calc 51.1 Estimated GFR 50 POC Glucose 219 H (60-115) mg/dL Random Glucose 311 H (60-115) mg/dL Calcium 10.6 H D (8.4-10.2) mg/dL Magnesium 2.0 (1.6-2.6) mg/dL Total Bilirubin 0.5 (0.0-1.0) mg/dL AST 17 (5-37) U/L ALT 15 (0-40) U/L Alkaline Phosphatase 120 H (39-117) U/L Troponin I High Sens < 2.7 (<3.5-35.0) ng/L Total Protein 8.6 H (6.5-8.0) g/dL Albumin 4.5 (3.5-5.0) g/dL Influenza Type A (PCR) NEGATIVE (Negative) Influenza Type B (PCR) NEGATIVE (Negative) RSV RNA Qual (PCR) NEGATIVE (Negative) SARS-CoV-2 RNA (RT-PCR) NEGATIVE (Negative) Critical Care Time Critical Care Time Critical Care Time: Yes Total Critical Care Time: 45 Attestation: I have personally provided critical care time. Time includes review of lab data, radiology results, discussion with consultants, and monitoring for potential decompensation. Intervention performed as documented. Discharge Plan Discharge Clinical Impression: Acute hyperglycemia, Palpitations Patient Disposition: Home, Self-Care Instructions: Heart Palpitations (ED), Diabetic Hyperglycemia (ED) Additional Instructions: continue taking Jardiance as instructed, at metformin 500 mg tablet twice a day. Please follow-up with your primary care physician tomorrow. If you have any worsening or new symptoms, please return to the emergency room or call 911 Prescriptions: New metformin 500 mg tablet 500 mg PO BID Qty: 60 1RF No Action (DME) blood-glucose meter [OneTouch Ultra2 Meter] Kit See Rx Instructions .Route Qty: 1 0RF Rx Instructions: test 3 times per day (DME) OneTouch Ultra Test Strip See Rx Instructions .ROUTE .COMPLEX Qty: 100 3RF Dose Instruction: DIRECTED THREE TIMES A DAY Rx Instructions: DIRECTED THREE TIMES A DAY (DME) pen needle, diabetic 32 gauge x 5/32 needle See Rx Instructions subcut .MEDSUPPLY Qty: 50 5RF Rx Instructions: Once a day (DME) Three Wheel Scooter See Rx Instructions .Route .MEDSUPPLY Qty: 1 0RF Rx Instructions: As directed sucralfate [Carafate] 1 gram tablet 1 g PO BID 90 Days Qty: 180 3RF (DME) colostomy bag, non-sterile 1 07/29 (12 ) [facility] [place] Rx Instructions .Route Qty: 10 12RF Rx Instructions: As directed atorvastatin 40 mg tablet 40 mg PO DAILY 90 Days Qty: 90 3RF metoprolol succinate 50 mg tablet extended release 24 hr 25 mg PO DAILY 90 Days Qty: 45 3RF lisinopril 2.5 mg tablet 2.5 mg PO DAILY 90 Days Qty: 90 3RF zolpidem 10 mg tablet 10 mg PO BEDTIME 90 Days Qty: 90 0RF Rx Instructions: changed 07/2022 empagliflozin 25 mg tablet 25 mg PO DAILY 90 Days Qty: 90 2RF nifedipine 60 mg tablet extended release 24hr 60 mg PO DAILY 90 Days Qty: 90 3RF omeprazole 20 mg capsule,delayed release(DR/EC) 20 mg PO DAILY 90 Days Qty: 90 3RF oxycodone-acetaminophen 5-325 mg tablet 1 tab PO BID PRN (Reason: pain) 30 Days Qty: 60 0RF (DME) lancets [OneTouch Delica Lancets] 33 gauge [facility] See Rx Instructions .Route Qty: 100 11RF Rx Instructions: Test 3 times daily aspirin [Adult Aspirin Regimen] 81 mg tablet,delayed release (DR/EC) 81 mg PO DAILY Qty: 30 0RF (DME) rollator See Rx Instructions .Route .MEDSUPPLY Qty: 1 0RF Rx Instructions: As directed (DME) blood sugar diagnostic Strip See Rx Instructions .ROUTE .MEDSUPPLY Qty: 100 11RF Rx Instructions: As directed three times a day Print Language: Icelandic
--- NOTE | 2024-04-02 13:55 | ECG_ITS ---
Test Reason : palpitations Blood Pressure : / mmHG Vent. Rate : 078 BPM Atrial Rate : 078 BPM P-R Int : 150 ms QRS Dur : 072 ms QT Int : 380 ms P-R-T Axes : 074 025 -57 degrees QTc Int : 433 ms Normal sinus rhythm Nonspecific T wave abnormality Abnormal ECG When compared with ECG of 20-MAR-2019 16:14, No significant change was found Referred By: Karina Hammer Electronically Signed By:AMRIT MICHEL
[2024-04-02 14:15] LABS: MANUAL DIFF FLAG NO
[2024-04-02 14:16] LABS: Basophils Absolute Auto 0.1 X10*3/uL (0.0-0.2); Basophils Percent Auto 0.6 % (0-2); Eosinophils Absolute Auto 0.1 X10*3/uL (0.0-0.4); Eosinophils Percent Auto 1.3 % (0-4); Hematocrit 45.2 % (42.0-52.0); Hemoglobin 15.9 g/dl (14.0-18.0); Imm Gran Abs Auto 0.04 X10*3/uL (0.00-0.03); Imm Gran Pct Auto 0.4 % (0.0-0.4); Lymphocytes Absolute Auto 2.7 X10*3/uL (1.2-4.9); Lymphocytes Percent Auto 24.3 % (20-40); Mean Corpuscular HGB Conc 35.2 g/dl (31.0-36.0); Mean Corpuscular Hemoglobin 32.2 pg (27.0-33.0); Mean Corpuscular Volume 91.5 fL (80.0-98.0); Mean Platelet Volume 10.3 fL (9.4-12.4); Monocytes Percent Auto 8.5 % (2-11); Neutrophils Absolute Auto 7.3 x10*3/uL (2.0-8.3); Neutrophils Percent Auto 64.9 % (45-73); Platelet Count 334 X10*3/uL (160-400); Red Blood Count 4.94 X10*6/uL (4.60-5.80); Red Cell Distribution Width 12.8 % (11.0-16.0); White Blood Count 11.2 X10*3/uL (4.8-10.8)
[2024-04-02 14:31] LABS: Alanine Aminotransferase 15 U/L (0-40); Albumin Level 4.5 g/dL (3.5-5.0); Alkaline Phosphatase 120 U/L (39-117); Anion Gap 21 (12-20); Aspartate Amino Transferase 17 U/L (5-37); Bilirubin Total 0.5 mg/dL (0.0-1.0); Blood Urea Nitrogen 23 mg/dL (9-16); Calcium 10.6 mg/dL (8.4-10.2); Carbon Dioxide 24 mmol/L (22-29); Chloride 100 mmol/L (96-108); Creatinine Clr Calc Pharmacy 51.1; Estimated Glomerular Filt Rate 50; Glucose Random 311 mg/dL (60-115); Sodium 140 mmol/L (135-145); Total Protein 8.6 g/dL (6.5-8.0)
[2024-04-02 14:39] LABS: Troponin-I High Sensitivity < 2.7 ng/L (<3.5-35.0)
[2024-04-02 15:11] LABS: Influenza A PCR NEGATIVE (Negative); Influenza B PCR NEGATIVE (Negative); Resp Syncy Virus RNA Qual PCR NEGATIVE (Negative); SARS COV2 PCR INHOUSE NEGATIVE (Negative)
[2024-04-02 16:00] VITALS: BP 138/88; PULSE 66; RESP 18; TEMP 36.8; O2SAT 97
--- NOTE | 2024-04-02 16:28 | PC.NURSE ---
Patient with urostomy bag- provider aware stating not to collect UA specimin
--- NOTE | 2024-04-02 16:29 | PC.NURSE ---
Patient reports has had blood sugars in the 500`s for last few days. states takes jardiance only and used to be on insulin but was no longer prescribed insulin because his sugars were stable. Reports some sob and chest pressure , reports that he has had tension in his head for the last few days
[2024-04-02] MEDS: Insulin Regular, Human 100 UNIT/ML 10 ML VIAL IVPUSH (17:38)
[2024-04-02] MEDS: 0.9 % Sodium Chloride 1,000 ML 999 ML IVCONT (17:39)
[2024-04-02 17:56] VITALS: BP 149/85; PULSE 65; RESP 18; TEMP 36.8; O2SAT 100
--- NOTE | 2024-04-02 17:58 | PC.NURSE ---
BS 219
[2024-04-02 18:00] LABS: Glucose, Whole Blood 219 mg/dL (60-115)
--- NOTE | 2024-04-02 18:21 | PC.NURSE ---
BS 169. patient requesting discharge, provider aware
[2024-04-02 18:23] LABS: Glucose, Whole Blood 169 mg/dL (60-115)
[2024-04-02 18:31] VITALS: BP 149/85; PULSE 65; RESP 18; TEMP 36.8; O2SAT 100
== END 2024-04-02 18:45 | disposition home or self-care (01) ==
PROVIDERS: Physician Assistant Medical; Emergency Provider Emergency Medicine; PCP Internal Medicine
DX: E11.65 Type 2 diabetes mellitus with hyperglycemia (principal); R00.2 Palpitations; R11.0 Nausea; Z87.891 Personal history of nicotine dependence; Z03.818 Encounter for observation for suspected exposure to other biological agents ruled out; Z79.899 Other long term (current) drug therapy; Z79.4 Long term (current) use of insulin
CPT/HCPCS: 0241U; 71046; 80053; 82947; 83735; 84484; 85025; 93005; 96361; 96374; 99284

== ENCOUNTER 2024-04-04 12:29 | Outpatient (AMB) | payer OTHER, SELFPAY ==
[2024-04-04 12:30] VITALS: BP 114/70; PULSE 73; O2SAT 97; BMI 24.1
--- NOTE | 2024-04-04 12:30 | A.OFFPC_ITS ---
Vital Signs 04/04/24 12:30 Height 5 ft 9 in Weight 163 lb BMI 24.1 BP 114/70 Blood Pressure Location Lt brachial Position Sitting Pulse 73 Pulse Source Pulse Oximeter Pulse Oximetry (%) 97 Oxygen Delivery Method Room Air Intake Visit Reasons: DM Media Developer Required: No Allergies metformin Adverse Reaction (Intermediate, Verified 04/04/24 12:30) stomach pain Tobacco use date assessed: 11/16/23 Fall risk assessment: No Falls in past year Last assessed Fall Risk: 04/04/24 Dental Screening Dental Screen Date: 11/16/23 HPI DM HPI Details 68-year-old male with diabetes mellitus hypertension hypercholesterolemia coronary artery disease GERD bladder cancer and lumbar post laminectomy syndrome on narcotic pain medication coming in for follow-up. October last seen patient's colonoscopy last done in 05/14/2022 review of the notes ER visit in April 02 on Jardiance blood sugar has been very high. Patient was placed back on metformin 500 mg twice a day. Patient also has been seen by Urology for the bladder cancer has the urostomy 2017 cystoprostatectomy patient had a penile prosthetic placement. Patient is awaiting insurance approval. Meanwhile patient does admit eating a lot of fruits and causing the blood sugars to be elevated but would like to have the insulin back. Metformin is going to be discontinued due to side effects of stomach pains. Insulin prescription sent in. Patient needs refills on the pain medication as well as on omeprazole. [facility] Medical History (Updated 04/04/24 @ 12:41 by Yue Daley MD) Hypoglycemia unawareness associated with type 2 diabetes mellitus Diabetes type 2, uncontrolled Dyslipidemia Diabetes type 2, controlled Acid reflux Right knee pain Annual physical exam Type 2 diabetes mellitus with hyperglycemia Hypertension Diabetic retinopathy associated with type 2 diabetes mellitus Diabetic polyneuropathy associated with type 2 diabetes mellitus Diabetic nephropathy associated with type 2 diabetes mellitus Surgical History Hx of ileostomy History of esophagogastroduodenoscopy (EGD) Hx of colonoscopy History of lumbar fusion Hx of nephrostomy Hx of bladder cancer History of back surgery Family History Father No problems noted. Mother Myocardial infarct Social History (Updated 08/13/23 @ 12:37 by Yue Daley MD) Household Members: Spouse Housing: Apartment Alcohol intake: current Alcohol intake frequency: holidays/special occasions only Comment: 1 a month 2-4 shots Patient Tobacco Use Status: Former Tobacco user Tobacco use type: Cigarette Years Smoked: quit 2010 e-Cigarette/Vaping Use: Never Used Second Hand Smoke Exposure: Yes Substance Use Type: Marijuana service: No Current occupational status: disabled Cognitive needs: No Hearing needs: No Vision needs: No Questionnaire Thrive Questionnaire Date Thrive assessed: 11/16/23 AUDIT C Alcohol Use Questionnaire (AUDIT-C) 1. How often do you have a drink containing alcohol?: 2-4 times a month 2. How many drinks containing alcohol do you have on a typical day when you are drinking?: 1 or 2 3. How often do you have six or more drinks on one occasion?: Monthly Total Score: 4 LADARIUS-7 AMB Questionnaire LADARIUS-7 Date LADARIUS - 7 assessed: 08/13/23 Source: Developed by Drs. Dimitri Fontaine, Janine Powell, Rajeev Guerra and colleagues, with an educational brooke from [employer]. Physical exam (Primary Care) Vital Signs: Last Vital Signs Pulse 73 04/04/24 12:30 BP 114/70 04/04/24 12:30 Pulse Ox 97 04/04/24 12:30 Oxygen Delivery Method Room Air 04/04/24 12:30 BMI result Body Mass Index 24.1 Tobacco/Smoking Status: Tobacco use Status Tobacco use date assessed 11/16/23 04/04/24 12:34 Patient Tobacco Use Status Former Tobacco user 04/04/24 12:34 Tobacco use type Cigarette 04/04/24 12:34 e-Cigarette/Vaping Use Never Used 04/04/24 12:34 Thrive Assessment: Date of Thrive Assessment Date Thrive assessed 11/16/23 04/04/24 12:34 Const General: alert; No acute distress Eyes Conjunctivae: conjunctivae normal Resp Auscultation: clear to auscultation bilaterally Cardio Rate: regular rate Rhythm: regular rhythm GI Inspection: Yes normal to inspection Extrem General: Yes normal to inspection and No edema Results AMB Hemoglobin A1c AMB Hemoglobin A1c 13.3 % Last Edit by HEENA Hidalgo on 04/04/24 12:41 Assessment and Plan Assessment & Plan (1) Type 2 diabetes mellitus with hyperglycemia: Comment: Dr. Eason Code(s): E11.65 - Type 2 diabetes mellitus with hyperglycemia Plan: Decrease the amount of carbohydrate intake, pasta, bread, rice and potatoes are all sugar and that is aside from all the sweet stuff, remember that fruits are good but they are Sweet also. Hemoglobin A1c goal of less than 7.0. Patient on Jardiance 25 mg once a day was recently started on metformin back again on 500 mg twice a day but has not taken since having stomach ache (2) Hypercholesterolemia: Code(s): E78.00 - Pure hypercholesterolemia, unspecified Plan: Avoid fried foods, chicken skin, eggs, butter margarine, pastries and meat. Be it pork or beef they have a lot of cholesterol March 2023 last blood work. On atorvastatin 40 mg once a day (3) CAD (coronary artery disease): Comment: 2013 (as per patient) Code(s): I25.10 - Atherosclerotic heart disease of [place] coronary artery without angina pectoris Plan: Control the cholesterol, weight, blood pressure, diabetes taking aspirin 81 mg once a day (4) Postlaminectomy syndrome, lumbar: Code(s): M96.1 - Postlaminectomy syndrome, not elsewhere classified Plan: Narcotic pain meds: Is being prescribed with the understanding that these medications are potentially addictive and should be used only when absolutely necessary and must always be secured. Any remaining pills should be safely disposed off appropriately. Patient is advised that narcotics can impaired judgment and one should not drive or operate heavy machinery while taking these medications. Never share these medications with anybody and do not leave them unattended. They will not be replaced under any circumstances. (5) Hypertension: Code(s): I10 - Essential (primary) hypertension Qualifiers: Hypertension type: essential hypertension Qualified Code(s): I10 - Essential (primary) hypertension Plan: Continue with blood pressure medication. Decrease salt intake and exercise on nifedipine 60 mg once a day metoprolol 25 mg once a day lisinopril 2.5 mg once a day (6) GERD (gastroesophageal reflux disease): Code(s): K21.9 - Gastro-esophageal reflux disease without esophagitis Plan: Avoid the foods that causes that usually spicy foods, tomato products, juices, coffee, soda and foods that your sensitive to. After eating do not lie down, allow 3-4 hours before in lie down. And keep the head of bed above 30 degrees to avoid the acid from going up. (7) Bladder cancer: Comment: Cystoprostatectomy 2017 [facility], STOMA placement RLQ [facility] Code(s): C67.9 - Malignant neoplasm of bladder, unspecified Plan: Patient continues to follow-up with urology. (8) Erectile dysfunction: Code(s): N52.9 - Male erectile dysfunction, unspecified Plan: Patient sees Urology and for penile prosthesis procedure. Orders: Orders Comprehensive Met. Panel Today E11.65 - Type 2 diabetes mellitus with hyperglycemia Prostate Specific Antigen Scr Today E11.65 - Type 2 diabetes mellitus with hyperglycemia AMB Hemoglobin A1c Today E11.21 - Type 2 diabetes mellitus with diabetic nephropathy Complete Blood Count Auto Diff Today E11.65 - Type 2 diabetes mellitus with hyperglycemia Free T4 (Free Thyroxine) Today E11.65 - Type 2 diabetes mellitus with hyperglycemia Thyroid Stimulating Hormone Today E11.65 - Type 2 diabetes mellitus with hyperglycemia Microalbumin, Random (w Creat) Today E11.65 - Type 2 diabetes mellitus with hyperglycemia Creatinine Urine Today E11.65 - Type 2 diabetes mellitus with hyperglycemia Lipid Panel Today E11.65 - Type 2 diabetes mellitus with hyperglycemia, E78.00 - Pure hypercholesterolemia, unspecified Vitamin B12 and Folate Today E11.65 - Type 2 diabetes mellitus with hyperglycemia Hemoglobin A1c Today E11.65 - Type 2 diabetes mellitus with hyperglycemia Medications: New insulin glargine (Lantus Solostar U-100 Insulin) 10 units (0.1 mL) subcut QPM 15 mL 1RF E11.65 - Type 2 diabetes mellitus with hyperglycemia Refilled omeprazole 20 mg PO DAILY 90 days 90 caps 3RF J03.90 - Acute tonsillitis, unspecified Discontinued metformin Discontinued Reason: Doctor's Order 500 mg PO BID 60 tabs 1RF Coding Level of Care Code Est Pt Level 4 (43739) Complex EM visit Add On G2211 Diagnoses Type 2 diabetes mellitus with hyperglycemia E11.65 Hypercholesterolemia E78.00 CAD (coronary artery disease) I25.10 Postlaminectomy syndrome, lumbar M96.1 Essential hypertension I10 Hypertension type: essential hypertension GERD (gastroesophageal reflux disease) K21.9 Bladder cancer C67.9 Erectile dysfunction N52.9
== END 2024-04-04 12:55 | disposition home or self-care (01) ==
PROVIDERS: PCP Internal Medicine; Visit Provider Internal Medicine
DX: E11.65 Type 2 diabetes mellitus with hyperglycemia (principal); E11.21 Type 2 diabetes mellitus with diabetic nephropathy; C67.9 Malignant neoplasm of bladder, unspecified; E78.00 Pure hypercholesterolemia, unspecified; I25.10 Atherosclerotic heart disease of native coronary artery without angina pectoris; M96.1 Postlaminectomy syndrome, not elsewhere classified; I10 Essential (primary) hypertension; K21.9 Gastro-esophageal reflux disease without esophagitis; N52.9 Male erectile dysfunction, unspecified
CPT/HCPCS: 83036; 99214; G2211

== ENCOUNTER 2024-07-05 10:29 | Outpatient (REF) | payer OTHER, SELFPAY ==
[2024-07-05 10:46] LABS: MANUAL DIFF FLAG NO
[2024-07-05 10:59] LABS: Basophils Absolute Auto 0.1 X10*3/uL (0.0-0.2); Basophils Percent Auto 0.5 % (0-2); Eosinophils Absolute Auto 0.2 X10*3/uL (0.0-0.4); Eosinophils Percent Auto 1.6 % (0-4); Hemoglobin 15.5 g/dl (14.0-18.0); Imm Gran Abs Auto 0.02 X10*3/uL (0.00-0.03); Imm Gran Pct Auto 0.2 % (0.0-0.4); Lymphocytes Absolute Auto 3.3 X10*3/uL (1.2-4.9); Lymphocytes Percent Auto 31.7 % (20-40); Mean Corpuscular HGB Conc 33.7 g/dl (31.0-36.0); Mean Corpuscular Hemoglobin 31.3 pg (27.0-33.0); Mean Corpuscular Volume 92.9 fL (80.0-98.0); Mean Platelet Volume 9.3 fL (9.4-12.4); Monocytes Percent Auto 9.2 % (2-11); Neutrophils Absolute Auto 5.9 x10*3/uL (2.0-8.3); Neutrophils Percent Auto 56.8 % (45-73); Platelet Count 359 X10*3/uL (160-400); Red Blood Count 4.95 X10*6/uL (4.60-5.80); Red Cell Distribution Width 13.2 % (11.0-16.0); White Blood Count 10.4 X10*3/uL (4.8-10.8)
[2024-07-05 11:06] LABS: Estimated Average Glucose 209 mg/dL; Hemoglobin A1C 297.4447 umol/L; Hemoglobin A1c % 8.9 % (<6.0); Total Hemoglobin (HGBA1C) 4005.7826 umol/L
[2024-07-05 11:35] LABS: Alanine Aminotransferase 30 U/L (0-40); Albumin Level 4.4 g/dL (3.5-5.0); Alkaline Phosphatase 102 U/L (39-117); Anion Gap 14 (12-20); Aspartate Amino Transferase 27 U/L (5-37); Bilirubin Total 0.3 mg/dL (0.0-1.0); Blood Urea Nitrogen 25 mg/dL (9-16); Calcium 10.2 mg/dL (8.4-10.2); Carbon Dioxide 29 mmol/L (22-29); Chloride 105 mmol/L (96-108); Cholesterol 175 mg/dL (<200); Estimated Glomerular Filt Rate > 60; Glucose Random 201 mg/dL (60-115); HDL Cholesterol 42 mg/dL (>40); LDL Cholesterol Calculated 88 mg/dL (<100); Potassium 3.9 mmol/L (3.3-5.1); Sodium 144 mmol/L (135-145); Total Protein 8.4 g/dL (6.5-8.0); Triglycerides 229 mg/dL (<150)
[2024-07-05 11:43] LABS: Free T4 (Free Thyroxine) 1.13 ng/dL (0.71-1.85); Thyroid Stimulating Hormone 0.85 uIU/mL (0.32-4.0)
[2024-07-05 11:58] LABS: Folate 13.8 ng/mL (> or = 4.0); Prostate Specific Antigen Scr < 0.10 ng/mL (<0.05-4.0); Vitamin B12 530 pg/mL (200-900)
--- OUTSIDE RECORDS SUMMARY | 2024-07-06 00:29 | XMS_ITS | Data Portability ---
Author Organization [email or web address] Address [address] [place] [address] Assessment Encounter Date Assessment Date Assessment LastModified by Organization Details LastModified Time 01/06/2023 01/06/2023 I have reviewed and agree with the assessment and plan as documented by the accordion tuner. I provided real-time medical direction for this encounter and was immediately available to provide additional phone-based assistance as needed. 67M with history of n/v/d x 24 hours. Hx of gastritis. No fever. Vitals stable. Mild abdominal tenderness. Suspect gastroenteriti s. No red flags noted. Will provide zofran. Red flags and return precautions discussed. paysola Not available 01/06/2023 17:45:49 Plan of Treatment Reminders Order Date Submit Date Provider Last Modified By Organization Details Last Modified Time Details Appointments None recorded. Lab None recorded. Referral None recorded. Procedures None recorded. Surgeries None recorded. Imaging None recorded. Medication Orders ondansetron 4 mg disintegrat ing tablet 2022 023 [facility] [place]Pharmacy #[id number], [address] [place], [address], 17:47:22 Patient TargetsNo targets recorded. Patient InstructionsNo instructions recorded. Reason for Referral None Reported. Medical Equipment None Reported. Medications Name Sig Start Date Stop Date Status Note LastModified by Organization Details LastModified Time atorvastatin 40 mg tablet TAKE 1 TABLET BY MOUTH EVERY DAY active Not Available Not Available No t Available metoprolol succinate ER 50 mg tablet,exten ded release 24 hr TAKE 1/2 TABLET BY MOUTH EVERY DAY active Not Available Not Available No t Available sucralfate 1 gram tablet TAKE 1 TABLET BY MOUTH TWICE A DAY active Not Available Not Available No t Available oxycodone-ac etaminophen 5 mg-325 mg tablet TAKE 1 TABLET BY MOUTH TWICE A DAY NEEDED FOR PAIN active Not Available Not Available No t Available nifedipine ER 60 mg tablet,exten ded release 24 hr TAKE 1 TABLET BY MOUTH EVERY DAY active Not Available Not Available No t Available OneTouch Ultra Test strips DIRECTED THREE TIMES A DAY active Not Available Not Available No t Available omeprazole 20 mg capsule,debby yed release TAKE 1 CAPSULE BY MOUTH EVERY DAY active Not Available Not Available No t Available zolpidem 5 mg tablet TAKE 1 TABLET BY MOUTH EVERYDAY AT BEDTIME active Not Available Not Available No t Available zolpidem 10 mg tablet TAKE 1 TABLET BY MOUTH EVERYDAY AT BEDTIME active Not Available Not Available No t Available ondansetron 4 mg disintegrati ng tablet PLACE 1 TABLET EVERY 8 HOURS BY TRANSLINGUA L ROUTE FOR 2 DAYS. active Not Available Not Available No t Available metformin ER 500 mg tablet,exten ded release 24 hr TAKE 1 TABLET BY MOUTH EVERY DAY active Not Available Not Available No t Available lisinopril 2.5 mg tablet TAKE 1 TABLET BY MOUTH EVERY DAY active Not Available Not Available No t Available glipizide 5 mg tablet TAKE 1 TABLET BY MOUTH TWICE A DAY active Not Available Not Available No t Available amoxicillin 875 mg-potassium clavulanate 125 mg tablet TAKE 1 TABLET BY MOUTH TWICE A DAY active Not Available Not Available No t Available Laxative (bisacodyl) 5 mg tablet,delay ed release TAKE ORALLY DIRECTED PRIOR TO COLONOSCOPY active Not Available Not Available Not Available chlorhexidin e gluconate 0.12 % mouthwash PLEASE SEE ATTACHED FOR DETAILED DIRECTIONS active Not Available Not Available N ot Available Gavilax 17 gram/dose oral powder 238 G ORALLY ONCE FOR 1 DAY TAKE ORALLY DIRECTED PRIOR TO COLONOSCOPY active Not Available Not Available Not Available Marianaagljoaquin Guaman U-100 Insulin 100 unit/mL (3 mL) subcutaneous INJECT 25 UNITS (0.25 ML) SUBCUTANEOU SLY EVERY EVENING FOR 30 DAYS active Not Available Not Available No t Available BD Belinda 2nd Gen Pen Needle 32 gauge x 5/32 EVERY DAY active Not Available Not Available No t Available OneTouch Ultra2 Meter TEST 3 TIMES PER DAY active Not Available Not Available No t Available OneTouch Delica Plus Lancet 33 gauge USE DIRECTED 3 TIMES A DAY active Not Available Not Available Not Available Vitals Date Recorded Respiratory rate Body weight Oxygen saturation Oxygen saturation in Arterial blood by Pulse oximetry Body temperature Heart rate Systolic blood pressure Diastolic blood pressure Provider Name and Address Organization Details Last Updated DateTime 3 16 /min 40567.6 8 g 100 % 100 % 97 [degF] 73 /min 185 mm[Hg] 71 mm[Hg] Not Available [facility] - production 17:43:15 Social History None recorded. Functional Status None recorded. Mental Status None recorded. Family History Nothing Reported. Medical History No medical history recorded. Past Encounters Encounter ID Performer Location Encounter Start Date Encounter Closed Date Diagnosis/Indication Diagnosis SNOMED-CT Code Diagnosis ICD10 Code [id number] Calista Giles MD [facility] - [facility] [address] [place] [address] 01/06/2023 17:43:03 01/07/2023 10:43:50 Gastroenteritis 61247765 K52.9 Health Concerns Section Related Observation LastModified by Organization Detai ls LastModified Time None Recorded Concern Status LastModified by Organization Details LastModified Time None Recorded Advance Directives Directive None Recorded Payers Encounter Date Sequence Insurance Name Policy Number Policy Cat Covered Member ID Cat Member ID Guarantor Name 01/06/2023 1 [facility] - DOS ON OR AFTER 2022 - DUAL ELIGIBLE - [facility] OPTIONS AND ONE CARE (MEDICARE REPLACEMENT/ADV ANTAGE - HMO) Luan Jameson [id number] Luan Jameson Notes Date Note Type Note Provider Name and Address Organization Details Recorded Time 01/06/2023 text/html [facility] Nursing Assessment: Reason For Request: Daughter reporting pt might eat something that she should not have>chills, nausea vomiting's ,overall weakness, abdominal pain related to vomiting. Chief Complaints: Fever/Chills, Pain, Abdominal Pain, Nausea/Vomiting PMH: Diabetes, Heart Disease, Hypertension, Other Allergies: No Known Comments: Daughter calling on behalf of member to request [facility] visit with complaints of N/V and abdominal discomfort s/p eating food that did no agree with him' deny fevers. unsure if attempt meds. Verify member name/- .................. .................. .................. .................. .................. .................. .................. ............... Accounts Supervisor Note From Alexander Figueroa: Pt CO NVD X 7hours. Pt has chronic gastritis and this feels like a flare. Pt denies any blood in stool or vomit. Pt is able to drink water and hold it down. Pt did take all of his medications this am. Pt denies any dizziness. Pt AQX4 . Pt states that he has had the cold sweats, but no fevers. Pos active bow sounds, POs TTP all 4 quadrants of ABD. Neg rebound tenderness. Neg COVID/Flu. Neg Chest Pn or SOB. Pt given 4 mg of Zofran sublingual. Explained to Pt red flags and when to go to ED or call 911. Educated Pt on supportive care. Pt acknowledged all instructions. .................. .................. .................. .................. .................. .................. .................. ............... Disposition: Fulfilled Calista Giles MD [address] [facility],[address], [place], [address], [place] [employer] 01/06/2023 17:47:36
== END 2024-07-05 10:30 | disposition home or self-care (01) ==
LOC: HO.LAB 10:29
PROVIDERS: PCP Internal Medicine; Referring Provider Internal Medicine; Visit Provider Urology
DX: E11.65 Type 2 diabetes mellitus with hyperglycemia (principal); E78.00 Pure hypercholesterolemia, unspecified; E11.69 Type 2 diabetes mellitus with other specified complication; N52.1 Erectile dysfunction due to diseases classified elsewhere; C67.9 Malignant neoplasm of bladder, unspecified; Z12.5 Encounter for screening for malignant neoplasm of prostate
CPT/HCPCS: 36415; 80053; 80061; 82607; 82746; 83036; 84153; 84439; 84443; 85025

== ENCOUNTER 2024-08-03 12:54 | Outpatient (AMB) | payer OTHER, SELFPAY ==
--- NOTE | 2024-08-03 12:57 | A.OFFPC_ITS ---
Vital Signs 08/03/24 12:58 Height 5 ft 9 in Weight 182 lb BMI 26.9 BP 120/70 Blood Pressure Location Lt brachial Position Sitting Pulse 78 Pulse Source Pulse Oximeter Pulse Oximetry (%) 94 Oxygen Delivery Method Room Air Intake Visit Reasons: DM Allergies metformin Adverse Reaction (Intermediate, Verified 08/03/24 13:00) stomach pain Tobacco use date assessed: 08/03/24 Fall risk assessment: No Falls in past year Last assessed Fall Risk: 08/03/24 Dental Screening Dental Screen Date: 08/03/24 Did you have a dental visit in the last 12 months?: Yes Did you have a dental problem in the last 6 months where you did not have access to dental care?: No Was dental information given to patient?: Patient has dentist HPI DM HPI Details The patient is a 68-year-old male presenting with Type 2 Diabetes Mellitus. The patient reports a weight gain of 20 pounds over the past three months, attributing this primarily to increased food intake, although he mentions that most of it is muscle. He has a history of difficulty managing his blood glucose levels with a hemoglobin A1c of 8.9% in June, down from a previous level of 13%. The patient previously used a weekly injection for diabetes management (Ozempic), but discontinued it approximately two years ago. He reports being amenable to restarting the injection to improve glycemic control. Concerning diabetic retinal complications, the patient recently saw an sidewalk inspector who did not find diabetic retinopathy but noted some cataracts. His kidney function showed previous decline (creatinine at 1.42 in March) but has improved (1.1 as of the latest testing). He has proteinuria, indicating diabetes-related kidney involvement. Additionally, the patient requires better control of hyperlipidemia and is currently on medication. He took a flu shot at [facility] recently and reports using [facility] for prescriptions. [facility] Medical History (Updated 04/04/24 @ 12:41 by Yue Daley MD) Hypoglycemia unawareness associated with type 2 diabetes mellitus Diabetes type 2, uncontrolled Dyslipidemia Diabetes type 2, controlled Acid reflux Right knee pain Annual physical exam Type 2 diabetes mellitus with hyperglycemia Hypertension Diabetic retinopathy associated with type 2 diabetes mellitus Diabetic polyneuropathy associated with type 2 diabetes mellitus Diabetic nephropathy associated with type 2 diabetes mellitus Surgical History Hx of ileostomy History of esophagogastroduodenoscopy (EGD) Hx of colonoscopy History of lumbar fusion Hx of nephrostomy Hx of bladder cancer History of back surgery Family History Father No problems noted. Mother Myocardial infarct Social History (Updated 08/13/23 @ 12:37 by Yue Daley MD) Household Members: Spouse Housing: Apartment Alcohol intake: current Alcohol intake frequency: holidays/special occasions only Comment: 1 a month 2-4 shots Patient Tobacco Use Status: Former Tobacco user Tobacco use type: Cigarette Years Smoked: quit 2010 e-Cigarette/Vaping Use: Never Used Second Hand Smoke Exposure: Yes Substance Use Type: Marijuana service: No Current occupational status: disabled Cognitive needs: No Hearing needs: No Vision needs: No Questionnaire Thrive Questionnaire Date Thrive assessed: 08/03/24 I am a: Patient What is your living situation today?: I have a steady place to live Within the past 12 months, did the food you bought not last and you didn't have the money to get more?: Never true Within the past 12 months, did you worry whether your food would run out before you got money to buy more?: Never true Do you have trouble paying for medicines?: No Do you have trouble getting transportation to medical appointments?: No Do you have trouble paying your heating and electricity bill?: No Do you have trouble taking care of your child, family member or friend?: No Do you have trouble with day-to-day activities such as bathing, preparing meals, shopping, managing finances, etc.?: No Are you currently unemployed and looking for a job?: No Are you interested in more education?: No Currently or been in a relationship where the following occur: No concerns reported THRIVE Score: 0 AUDIT C Alcohol Use Questionnaire (AUDIT-C) 1. How often do you have a drink containing alcohol?: 2-4 times a month 2. How many drinks containing alcohol do you have on a typical day when you are drinking?: 1 or 2 3. How often do you have six or more drinks on one occasion?: Monthly Total Score: 4 LADARIUS-7 AMB Questionnaire LADARIUS-7 Date LADARIUS - 7 assessed: 08/03/24 Feeling nervous, anxious, or on edge: 0 = Not at all Not being able to stop or control worryin = Not at all Worrying too much about different things: 0 = Not at all Trouble relaxin = Not at all Being so restless that it is hard to sit still: 0 = Not at all Becoming easily annoyed or irritable: 0 = Not at all Feeling afraid as if something awful might happen: 0 = Not at all Total LADARIUS-7 score (0-4 normal; 5-9 mild; 10-14 moderate; 15-21 severe): 0 Source: Developed by Drs. Dimitri Fontaine, Janine Powell, Rajeev Guerra and colleagues, with an educational brooke from [employer]. Physical exam (Primary Care) Vital Signs: Last Vital Signs Pulse 78 08/03/24 12:58 BP 120/70 08/03/24 12:58 Pulse Ox 94 08/03/24 12:58 Oxygen Delivery Method Room Air 08/03/24 12:58 BMI result Body Mass Index 26.9 Tobacco/Smoking Status: Tobacco use Status Tobacco use date assessed 08/03/24 08/03/24 13:05 Patient Tobacco Use Status Former Tobacco user 08/03/24 12:57 Tobacco use type Cigarette 08/03/24 12:57 e-Cigarette/Vaping Use Never Used 08/03/24 12:57 Thrive Assessment: Date of Thrive Assessment Date Thrive assessed 08/03/24 08/03/24 13:05 Currently or been in a relationship where the following occur: No concerns reported Const General: alert; No acute distress Eyes Conjunctivae: conjunctivae normal Resp Auscultation: clear to auscultation bilaterally Cardio Rate: regular rate Rhythm: regular rhythm GI Inspection: Yes normal to inspection Extrem General: Yes normal to inspection and No edema Coding Level of Care Code Est Pt Level 4 (36040) Complex EM visit Add On G2211 Diagnoses Type 2 diabetes mellitus with hyperglycemia E11.65 Essential hypertension I10 Hypertension type: essential hypertension CAD (coronary artery disease) I25.10 GERD (gastroesophageal reflux disease) K21.9 Hypercholesterolemia E78.00 Postlaminectomy syndrome, lumbar M96.1 Assessment & Plan Assessment & Plan (1) Type 2 diabetes mellitus with hyperglycemia: Comment: Dr. Eason Code(s): E11.65 - Type 2 diabetes mellitus with hyperglycemia Category: Medical (2) Hypertension: Code(s): I10 - Essential (primary) hypertension Category: Medical Qualifiers: Hypertension type: essential hypertension Qualified Code(s): I10 - Essential (primary) hypertension (3) CAD (coronary artery disease): Comment: 2013 (as per patient) Code(s): I25.10 - Atherosclerotic heart disease of [place] coronary artery without angina pectoris Category: Medical (4) GERD (gastroesophageal reflux disease): Code(s): K21.9 - Gastro-esophageal reflux disease without esophagitis Category: Medical (5) Hypercholesterolemia: Code(s): E78.00 - Pure hypercholesterolemia, unspecified Category: Medical (6) Postlaminectomy syndrome, lumbar: Code(s): M96.1 - Postlaminectomy syndrome, not elsewhere classified Category: Medical Plan - Initiate weekly Ozempic injections to manage Type 2 Diabetes Mellitus and lower hemoglobin A1c. - Increase atorvastatin dosage from 40 mg to 80 mg to better control hyperlipidemia. - Advise weight loss through diet and exercise to improve general health and control diabetes-related symptoms. - Request repeat cholesterol testing in three months to monitor lipid levels. - Monitor cataracts progression and manage accordingly to prevent vision impairment. - Continue to keep the patient informed about his kidney function, ensuring proteinuria is regularly assessed. - Prescribe pain medication as requested and coordinate with the pharmacy at [facility]. - Reinforce the necessity of continued surveillance for flu season despite vaccination, emphasizing the need for cautious health practices. Orders: Orders Lipid Panel 3 Months E78.00 - Pure hypercholesterolemia, unspecified Comprehensive Met. Panel 3 Months E78.00 - Pure hypercholesterolemia, unspecified Hemoglobin A1c 3 Months E78.00 - Pure hypercholesterolemia, unspecified Microalbumin, Random (w Creat) 3 Months E11.65 - Type 2 diabetes mellitus with hyperglycemia, E78.00 - Pure hypercholesterolemia, unspecified Creatinine Urine 3 Months E11.65 - Type 2 diabetes mellitus with hyperglycemia, E78.00 - Pure hypercholesterolemia, unspecified Medications: New tirzepatide (Mounjaro) for 4 weeks 2.5 mg (0.5 mL) subcut QWEEK 2 mL 2RF E11.65 - Type 2 diabetes mellitus with hyperglycemia Changed From atorvastatin 40 mg PO DAILY 90 days 90 tabs 3RF E78.5 - Hyperlipidemia, unspecified To atorvastatin 80 mg PO DAILY 90 tabs 3RF 90 days E78.5 - Hyperlipidemia, unspecified Refilled oxycodone-acetaminophen 5-325 mg 1 tab PO BID PRN 60 tabs 0RF pain 30 days Z98.1 - Arthrodesis status
[2024-08-03 12:58] VITALS: BP 120/70; PULSE 78; O2SAT 94; BMI 26.9
--- OUTSIDE RECORDS SUMMARY | 2024-08-03 14:15 | XMS_ITS | Data Portability ---
Author Organization [employer] Address [address] [place] [address] Assessment Encounter Date Assessment Date Assessment LastModified by Organization Details LastModified Time 01/06/2023 01/06/2023 I have reviewed and agree with the assessment and plan as documented by the personal care attendant. I provided real-time medical direction for this [...] 4 mg disintegrat ing tablet 2022 023 [facility]/Pharmacy #[id number], [address] [place], [address], 17:47:22 Patient TargetsNo targets recorded. Patient InstructionsNo [...] Details Last Updated DateTime 3 16 /min 80488.6 8 g 100 % 100 % 97 [degF] 73 /min 185 mm[Hg] 71 mm[Hg] Not Available [facility] - production 17:43:15 Social History None recorded. Functional Status None recorded. Mental Status None recorded. Family History Nothing Reported. Medical History No medical history recorded. Past Encounters Encounter ID Performer Location Encounter Start Date Encounter Closed Date Diagnosis/Indication Diagnosis SNOMED-CT Code Diagnosis ICD10 Code Diagnosis Note [id number] Calista Giles MD Main - [facility] [address] [place] [id number] 01/06/2023 17:43:03 01/07/2023 10:43:50 Gastroenteritis 87430308 K52.9 Health Concerns Section Related Observation LastModified by Organization Detai ls LastModified Time None Recorded Concern Status LastModified by Organization Details LastModified Time None Recorded Advance Directives Directive None Recorded Payers Encounter Date Sequence Insurance Name Policy Number Policy Cat Covered Member ID Cat Member ID Guarantor Name 01/06/2023 1 [facility] - DOS ON OR AFTER 2022 - DUAL ELIGIBLE - ASSISTED OPTIONS AND ONE CARE (MEDICARE REPLACEMENT/ADV ANTAGE - HMO) Luan Jameson [id number] Luan Jameson Notes Date Note Type Note [...] calling on behalf of member to request [facility] visit with complaints of N/V and abdominal discomfort s/p eating food that did no agree with him' deny fevers. unsure if attempt meds. Verify member name/- .................. .................. .................. .................. .................. .................. .................. ............... Nurse Aide Note From Alexander Figueroa: Pt CO NVD [...] ............... Disposition: Fulfilled Calista Giles MD [address] [facility],[address], [place], [address], [employer] 01/06/2023 17:47:36
== END 2024-08-03 13:41 | disposition home or self-care (01) ==
PROVIDERS: PCP Internal Medicine; Visit Provider Internal Medicine
DX: E11.65 Type 2 diabetes mellitus with hyperglycemia (principal); I10 Essential (primary) hypertension; I25.10 Atherosclerotic heart disease of native coronary artery without angina pectoris; K21.9 Gastro-esophageal reflux disease without esophagitis; E78.00 Pure hypercholesterolemia, unspecified; M96.1 Postlaminectomy syndrome, not elsewhere classified

== ENCOUNTER → 2024-08-03 12:54 | Outpatient (BNVA) | payer OTHER, SELFPAY | PROVIDERS: PCP Internal Medicine; Visit Provider Internal Medicine | DX: E11.65 Type 2 diabetes mellitus with hyperglycemia (principal); I10 Essential (primary) hypertension; I25.10 Atherosclerotic heart disease of native coronary artery without angina pectoris; K21.9 Gastro-esophageal reflux disease without esophagitis; E78.00 Pure hypercholesterolemia, unspecified; M96.1 Postlaminectomy syndrome, not elsewhere classified | CPT/HCPCS: 99212 ==

== ENCOUNTER 2024-08-09 13:03 | Outpatient (AMB) | payer OTHER, SELFPAY ==
--- NOTE | 2024-08-09 13:09 | MHC.OFFVIS ---
Intake Visit Reasons: Discuss Penile prosthetic/A1C/PSA(set)Elevated Intake Note: Pt presents to the office today to discuss Penile prosthetic/A1C/PSA elevated. Allergies metformin Adverse Reaction (Intermediate, Verified 08/09/24 13:09) stomach pain HPI Comments Details: Luan is a pleasant male. He is here for the following urologic issues - bladder cancer - erectile dysfunction Six-month follow-up At previous visit had discussed penile pump placement Had been given instructions regarding vacuum pump used to maximize prosthetic placement HbA1c remains at 8.9 07/18. Target 8.5 prosthetic placement. Discussed using CGM Recommend penile vacuum device in order to maximize penile size for prosthetic Significant improvement in diabetes control since that date. No longer on insulin. Has lost over 50 lb. Bladder cancer - cysto prostatectomy 2016 Muscle invasive bladder cancer Cysto prostatectomy 2016 [facility] Anastomotic revision was required Imaging - October 2020 CT scan normal per patient Stoma good placement with adequate protrusion Therapeutic plan continue with surveillance Erectile dysfunction Previous assessment Non responsive to oral medication Non responsive to injectables Had previously decided on implantable prosthetic but was canceled secondary to high HbA1c HbA1c - 04/17 6.8% Can schedule for prosthetic placement [facility] Medical History (Updated 04/04/24 @ 12:41 by Yue Daley MD) Hypoglycemia unawareness associated with type 2 diabetes mellitus Diabetes type 2, uncontrolled Dyslipidemia Diabetes type 2, controlled Acid reflux Right knee pain Annual physical exam Type 2 diabetes mellitus with hyperglycemia Hypertension Diabetic retinopathy associated with type 2 diabetes mellitus Diabetic polyneuropathy associated with type 2 diabetes mellitus Diabetic nephropathy associated with type 2 diabetes mellitus Surgical History Hx of ileostomy History of esophagogastroduodenoscopy (EGD) Hx of colonoscopy History of lumbar fusion Hx of nephrostomy Hx of bladder cancer History of back surgery Family History Father No problems noted. Mother Myocardial infarct Social History (Updated 08/13/23 @ 12:37 by Yue Daley MD) Household Members: Spouse Housing: Apartment Alcohol intake: current Alcohol intake frequency: holidays/special occasions only Comment: 1 a month 2-4 shots Patient Tobacco Use Status: Former Tobacco user Tobacco use type: Cigarette Years Smoked: quit 2010 e-Cigarette/Vaping Use: Never Used Second Hand Smoke Exposure: Yes Substance Use Type: Marijuana service: No Current occupational status: disabled Cognitive needs: No Hearing needs: No Vision needs: No Review of Systems Const Denies chills and Denies fever(s) Card Reports no additional complaints and Denies syncope Resp Denies cough GI Denies abdominal pain and Denies heartburn Reports as per HPI and Denies change in libido Neuro Denies syncope Psych Denies change in libido Endo Denies change in libido Physical Exam Const General: cooperative, healthy appearing, comfortable and no acute distress Orientation/consciousness: patient oriented x3 HEENT Face and sinus: Yes normal facial exam Mouth: moist mucous membranes Neck Neck: Yes normal visual inspection, Yes full ROM and Yes trachea midline Chest Chest palpation & inspection: normal inspection of the chest Resp Effort & Inspection: normal respiratory effort, able to speak in complete sentences and no respiratory distress GI Inspection: Yes normal to inspection Back/Spine/Pelvis Cervical Spine: normal cervical lordosis Thoracic/Lumbar Spine: thoracic and lumbar spine normal to inspection Skin General skin exam: no rashes or lesions noted Neuro General: patient oriented x3, gait normal, tone normal and moves all extremities Extrem General: Yes normal to inspection and Yes capillary refill normal Assessment & Plan Assessment & Plan (1) Erectile dysfunction associated with type 2 diabetes mellitus: Code(s): E11.69 - Type 2 diabetes mellitus with other specified complication; N52.1 - Erectile dysfunction due to diseases classified elsewhere Category: Medical Plan Encouraged HbA1c were control Orders: Orders Hemoglobin A1c 3 Months E11.69 - Type 2 diabetes mellitus with other specified complication, E11.9 - Type 2 diabetes mellitus without complications, N52.1 - Erectile dysfunction due to diseases classified elsewhere Patient Instructions: Imaging studies, laboratory and physical exam results were discussed and reviewed in detail. No major barriers to patient understanding were identified. An opportunity to ask questions regarding the treatment plan was provided. All questions were answered. The patient expressed understanding and agreement with the above treatment plan. The patient is aware they should contact our office by phone for worsening of their current condition or the appearance of new urologic symptoms. Compliance is encouraged with any medications and followup testing that is ordered. It is a privilege to participate in the urologic care of your patient. If you have any questions or concerns regarding treatment for the above conditions, or other urologic issues, please do not hesitate to contact me. The office telephone contact is [phone]. This note is constructed using voice recognition software. While every effort has been made to ensure accuracy nutritionist public health errors may have been included. Yours sincerely, Dr Abhay Wilcox MD, [facility] - Urology Providers of Expert, Compassionate Care for the Genitourinary System Coding Level of Care Code Est Pt Level 3 (93473) Diagnoses Erectile dysfunction associated with type 2 diabetes mellitus E11.69; N52.1
== END 2024-08-09 13:37 | disposition home or self-care (01) ==
PROVIDERS: PCP Internal Medicine; Visit Provider Urology
DX: E11.69 Type 2 diabetes mellitus with other specified complication (principal); N52.1 Erectile dysfunction due to diseases classified elsewhere
CPT/HCPCS: 99213

== ENCOUNTER → 2024-08-09 13:03 | Outpatient (BNVA) | payer OTHER, SELFPAY | PROVIDERS: PCP Internal Medicine; Visit Provider Urology | DX: E11.69 Type 2 diabetes mellitus with other specified complication (principal); N52.1 Erectile dysfunction due to diseases classified elsewhere; Z85.51 Personal history of malignant neoplasm of bladder | CPT/HCPCS: 99212 ==

== ENCOUNTER → 2024-08-18 12:52 | Outpatient (BNVA) | payer OTHER, SELFPAY | PROVIDERS: PCP Internal Medicine; Visit Provider Internal Medicine | DX: Z00.00 Encounter for general adult medical examination without abnormal findings (principal); E11.65 Type 2 diabetes mellitus with hyperglycemia; C67.9 Malignant neoplasm of bladder, unspecified; E11.69 Type 2 diabetes mellitus with other specified complication; N52.1 Erectile dysfunction due to diseases classified elsewhere; K21.9 Gastro-esophageal reflux disease without esophagitis; I25.10 Atherosclerotic heart disease of native coronary artery without angina pectoris; M96.1 Postlaminectomy syndrome, not elsewhere classified; I10 Essential (primary) hypertension; E78.00 Pure hypercholesterolemia, unspecified | CPT/HCPCS: 99397 ==

== ENCOUNTER 2024-10-23 10:45 | Outpatient (REF) | payer OTHER, SELFPAY ==
[2024-10-23 11:48] LABS: Alanine Aminotransferase 14 U/L (0-40); Albumin Level 4.1 g/dL (3.5-5.0); Alkaline Phosphatase 99 U/L (39-117); Anion Gap 12 (12-20); Aspartate Amino Transferase 19 U/L (5-37); Bilirubin Total 0.4 mg/dL (0.0-1.0); Blood Urea Nitrogen 26 mg/dL (9-16); Calcium 9.7 mg/dL (8.4-10.2); Carbon Dioxide 29 mmol/L (22-29); Chloride 106 mmol/L (96-108); Cholesterol 134 mg/dL (<200); Estimated Glomerular Filt Rate > 60; Glucose Random 203 mg/dL (60-115); HDL Cholesterol 36 mg/dL (>40); LDL Cholesterol Calculated 56 mg/dL (<100); Potassium 3.6 mmol/L (3.3-5.1); Sodium 143 mmol/L (135-145); Total Protein 7.6 g/dL (6.5-8.0); Triglycerides 214 mg/dL (<150)
[2024-10-23 12:00] LABS: Estimated Average Glucose 212 mg/dL; Total Hemoglobin (HGBA1C) 3777.0449 umol/L
--- OUTSIDE RECORDS SUMMARY | 2024-10-23 12:11 | XMS_ITS | Clinical Summary ---
Author Organization [employer] Address [address] [place] [address] Care Team Providers Care Catalogue Clerk Name Role Phone Unavailable Primary Care Provider Unavailabl e Allergies No known active allergies Medications atorvastatin (Lipitor) 40 MG tablet 3 Active Bisacodyl EC 5 MG EC tablet TAKE ORALLY DIRECTED PRIOR TO COLONOSCOPY 2 Active glipiZIDE (Glucotrol) 5 MG tablet Take 5 mg by mouth 2 times daily. 3 Active insulin glargine (Lantus SoloStar) 100 UNIT/ML pen INJECT 12 UNITS SUBCUTANEOUSLY DAILY Active metFORMIN (Glucophage) 500 MG tablet daily. Active omeprazole (PriLOSEC) [address] capsule Take 20 mg by mouth in the morning. 3 Active oxyCODONE-acet aminophen (Percocet) 5-325 MG tablet Take 1 tablet by mouth if needed in the morning and at bedtime. 3 Active zolpidem (Ambien) 5 MG tablet Take 5 mg by mouth at bedtime. 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 Bladder cancer 05/22/2016 Resolved Problems Problem Noted Date Diagnosed Date Resolved Date Urinary tract infection 06/01/201611/2023 Social History Tobacco Use Types Packs/Day Years Used Date Smoking Tobacco: Former Cigarettes Smokeless Tobacco: Former Tobacco Cessation:Counseling Given: Not Answered Alcohol Use Standard Drinks/Week Comments Yes 0 (1 standard drink = 0.6 oz pur e alcohol) Sex and Gender Information Value Date Recorded Sex Assigned at Male 09/15/2022 11:15 AM EST Legal Sex Male 11:14 AM EST Gender Identity Male 09/15/2022 11:15 AM EST Sexual Orientation Straight 09/15/2022 11 :15 AM EST Last Filed Vital Signs Vital Sign Reading Time Taken Comments Blood Pressure 128/66 04/19/2023 2:13 PM EDT Pulse - - Temperature - - Respiratory Rate - - Oxygen Saturation - - Inhaled Oxygen Concentration - - Weight - - Height - - Body Mass Index - - Plan of Treatment Health Maintenance Due Date Last Done Comments Anal Pap 1957 CT Colonography 1957 Colonoscopy 1957 Colorectal Cancer Screening 1957 Dental Oral Exam 1957 Dental Prophylaxis 1957 Dental X-Ray: Bitewings 1957 Depression Screening 1957 Diabetes: Hemoglobin A1C 1957 FIT DNA/Cologuard 1957 FIT 1957 FOBT 1957 Lipid Panel 1957 SDOH Screening 1957 Sigmoidoscopy 1957 Diabetes: Foot Exam 11/03/1967 Eye Exam 11/03/1967 Alcohol/Substance Use Screening 1969 Hepatitis C Screening 11/03/1975 DTaP/Tdap/Td Vaccines (1 - Tdap) 1976 Diabetes: Urine Protein Screening 1976 Hepatitis A Vaccines (1 of 2 - Risk 2-dose series) 1976 Zoster Vaccines (1 of 2) 11/03/2007 Hepatitis B Vaccines (1 of 3 - Risk 3-dose series) 2017 RSV Patients and Patients Aged 60 years or older (1 - Risk 60-74 years 1-dose series) 2017 COVID-19 Vaccine (2 - season) 2024 10/23/2020 Influenza Vaccine (#1) 2024 , 05/25/2022, 05/12/2021, Additional history exists Tobacco Screening 07/18/2025 07/18/2024 Dental X-Ray: Full Mouth 10/28/2025 10/27/2022 Pneumococcal Vaccine: 50+ Years Completed 08/11/2022 HIB Vaccines Aged Out No longer eligi ble based on patient's age to complete this topic HPV Vaccines Aged Out No longer eligi ble based on patient's age to complete this topic IPV Vaccines Aged Out No longer eligi ble based on patient's age to complete this topic Meningococcal Vaccine Aged Out No jd shorty eligible based on patient's age to complete this topic RSV under 20 months Aged Out No longe r eligible based on patient's age to complete this topic Rotavirus Vaccines Aged Out No longer eligible based on patient's age to complete this topic Procedures Procedure Name Priority Date/Time Associated Diagnosis Comments PANORAMIC RADIOGRAPHIC IMAGE Routine 10/27/2022 11:30 AM EDT from Last 3 Months or Most Recently Relevant to Health Maintenance Insurance [facility]
--- OUTSIDE RECORDS SUMMARY | 2024-10-23 12:11 | XMS_ITS | Encounter Summary ---
Author Organization [employer] Address [address] [place] [address] Care Team Providers Care Dealer Accounts Investigator Name Role Phone Unavailable Primary Care Provider Unavailabl e Encounter Details Date Type Department Care Team (Late st Contact Info) Description 11/27/2022 Abstract [facility] [address] [place] [address] Barry Larios DMD [address] [place] [address] Social History Tobacco Use Types Packs/Day Years Used Date Smoking Tobacco: Former Cigarettes Smokeless Tobacco: Former Alcohol Use Standard Drinks/Week Comments Yes 0 (1 standard drink = 0.6 oz pur e alcohol) Sex and Gender Information Value Date Recorded Sex Assigned at Male 09/15/2022 11:15 AM EST Legal Sex Male 11:14 AM EST Gender Identity Male 09/15/2022 11:15 AM EST Sexual Orientation Straight 09/15/2022 11 :15 AM EST documented as of this encounter Plan of Treatment Not on file documented as of this encounter Visit Diagnoses Not on filedocumented in this encounter
--- OUTSIDE RECORDS SUMMARY | 2024-10-23 12:11 | XMS_ITS | Data Portability ---
Author Organization [employer] Address [address] [place] [address] Assessment Encounter Date Assessment Date Assessment LastModified by Organization Details LastModified Time 01/06/2023 01/06/2023 I have reviewed and agree with the assessment and plan as documented by the site engineer. I provided real-time medical direction for this [...] 4 mg disintegrat ing tablet 2022 023 [facility]/Pharmacy #[id number], [address] [place], [address], 17:47:22 Patient TargetsNo targets recorded. Patient InstructionsNo [...] Details Last Updated DateTime 3 16 /min 91616.6 8 g 100 % 100 % 97 [degF] 73 /min 185 mm[Hg] 71 mm[Hg] Not Available [facility] - production 17:43:15 Social History None recorded. Functional Status None recorded. Mental Status None recorded. Family History Nothing Reported. Medical History No medical history recorded. Past Encounters Encounter ID Performer Location Encounter Start Date Encounter Closed Date Diagnosis/Indication Diagnosis SNOMED-CT Code Diagnosis ICD10 Code Diagnosis Note [id number] Calista Giles MD Main - [facility] [address] [place] [phone] 01/06/2023 17:43:03 01/07/2023 10:43:50 Gastroenteritis 12102271 K52.9 Health Concerns Section Related Observation LastModified by Organization Detai ls LastModified Time None Recorded Concern Status LastModified by Organization Details LastModified Time None Recorded Advance Directives Directive None Recorded Payers Encounter Date Sequence Insurance Name Policy Number Policy Cat Covered Member ID Cat Member ID Guarantor Name 01/06/2023 1 [facility] - DOS ON OR AFTER 2022 - DUAL ELIGIBLE - SNF OPTIONS AND ONE CARE (MEDICARE REPLACEMENT/ADV ANTAGE - HMO) Luan Jameson [id number] Luan Jameson Notes Date Note Type Note [...] on behalf of member to request [facility] visit with complaints of N/V and abdominal discomfort s/p eating food that did no agree with him' deny fevers. unsure if attempt meds. Verify member name/- .................. .................. .................. .................. .................. .................. .................. ............... Real Estate [employer] Administrator Note From Alexander Figueroa: Pt CO NVD [...] ............... Disposition: Fulfilled Calista Giles MD [address] [facility],[address], [place], [address], [employer] 01/06/2023 17:47:36
== END 2024-10-23 10:46 | disposition home or self-care (01) ==
LOC: HO.LAB 10:45
PROVIDERS: Absent Provider Urology; PCP Internal Medicine; Visit Provider Internal Medicine
DX: E11.65 Type 2 diabetes mellitus with hyperglycemia (principal); E11.69 Type 2 diabetes mellitus with other specified complication; N52.1 Erectile dysfunction due to diseases classified elsewhere; E78.00 Pure hypercholesterolemia, unspecified
CPT/HCPCS: 36415; 80053; 80061; 83036

== ENCOUNTER 2024-10-25 11:23 | Outpatient (AMB) | payer OTHER, SELFPAY ==
--- NOTE | 2024-10-25 11:37 | MHC.OFFVIS ---
Intake Visit Reasons: 3m followup Intake Note: Patient is present for 3M F/U Urology Medication:NONE Antibiotic Allergy:NONE Blood Thinner:ASPIR[facility] Program Medical Director Required: No Allergies metformin Adverse Reaction (Intermediate, Verified 10/25/24 11:38) stomach pain HPI Comments Details: Luan is a pleasant male. He is here for the following urologic issues - bladder cancer - erectile dysfunction Two month follow-up At previous visit had discussed penile pump placement Had been given instructions regarding vacuum pump used to maximize prosthetic placement HbA1c remains at 8.9 07/18. Target 8.5 prosthetic placement. HbA1c 10/17 9.0 Recommend penile vacuum device in order to maximize penile size for prosthetic Significant improvement in diabetes control since that date. No longer on insulin. Has lost over 50 lb. Bladder cancer - cysto prostatectomy 2016 Muscle invasive bladder cancer Cysto prostatectomy 2016 [facility] Anastomotic revision was required Imaging - October 2020 CT scan normal per patient Stoma good placement with adequate protrusion Therapeutic plan continue with surveillance Erectile dysfunction Previous assessment Non responsive to oral medication Non responsive to injectables Had previously decided on implantable prosthetic but was canceled secondary to high HbA1c HbA1c - 04/17 6.8% Can schedule for prosthetic placement [facility] Medical History (Updated 04/04/24 @ 12:41 by Yue Daley MD) Hypoglycemia unawareness associated with type 2 diabetes mellitus Diabetes type 2, uncontrolled Dyslipidemia Diabetes type 2, controlled Acid reflux Right knee pain Annual physical exam Type 2 diabetes mellitus with hyperglycemia Hypertension Diabetic retinopathy associated with type 2 diabetes mellitus Diabetic polyneuropathy associated with type 2 diabetes mellitus Diabetic nephropathy associated with type 2 diabetes mellitus Surgical History Hx of ileostomy History of esophagogastroduodenoscopy (EGD) Hx of colonoscopy History of lumbar fusion Hx of nephrostomy Hx of bladder cancer History of back surgery Family History Father No problems noted. Mother Myocardial infarct Social History Household Members: Spouse Housing: Apartment Alcohol intake: current Alcohol intake frequency: holidays/special occasions only Comment: 1 a month 2-4 shots Patient Tobacco Use Status: Former Tobacco user Tobacco use type: Cigarette Years Smoked: quit 2010 e-Cigarette/Vaping Use: Never Used Second Hand Smoke Exposure: Yes Substance Use Type: Marijuana service: No Current occupational status: disabled Cognitive needs: No Hearing needs: No Vision needs: No Review of Systems Const Denies chills and Denies fever(s) Card Reports no additional complaints and Denies syncope Resp Denies cough GI Denies abdominal pain and Denies heartburn Reports as per HPI and Denies change in libido Neuro Denies syncope Psych Denies change in libido Endo Denies change in libido Physical Exam Const General: cooperative, healthy appearing, comfortable and no acute distress Orientation/consciousness: patient oriented x3 HEENT Face and sinus: Yes normal facial exam Mouth: moist mucous membranes Neck Neck: Yes normal visual inspection, Yes full ROM and Yes trachea midline Chest Chest palpation & inspection: normal inspection of the chest Resp Effort & Inspection: normal respiratory effort, able to speak in complete sentences and no respiratory distress GI Inspection: Yes normal to inspection Back/Spine/Pelvis Cervical Spine: normal cervical lordosis Thoracic/Lumbar Spine: thoracic and lumbar spine normal to inspection Skin General skin exam: no rashes or lesions noted Neuro General: patient oriented x3, gait normal, tone normal and moves all extremities Extrem General: Yes normal to inspection and Yes capillary refill normal Assessment & Plan Assessment & Plan (1) Bladder cancer: Comment: Cystoprostatectomy 2017 [facility], STOMA placement RLQ [facility] Code(s): C67.9 - Malignant neoplasm of bladder, unspecified Category: Medical (2) Erectile dysfunction associated with type 2 diabetes mellitus: Code(s): E11.69 - Type 2 diabetes mellitus with other specified complication; N52.1 - Erectile dysfunction due to diseases classified elsewhere Category: Medical Plan Six-month follow-up HbA1c Orders: Orders Hemoglobin A1c 6 Months E11.9 - Type 2 diabetes mellitus without complications, N52.9 - Male erectile dysfunction, unspecified Patient Instructions: This note is constructed using voice recognition software. While every effort has been made to ensure accuracy blemish remover errors may have been included. Imaging studies, laboratory and physical exam results were discussed and reviewed in detail. No major barriers to patient understanding were identified. An opportunity to ask questions regarding the treatment plan was provided. All questions were answered. The patient expressed understanding and agreement with the above treatment plan. The patient is aware they should contact our office by phone for worsening of their current condition or the appearance of new urologic symptoms. Compliance is encouraged with any medications and followup testing that is ordered. It is a privilege to participate in the urologic care of your patient. If you have any questions or concerns regarding treatment for the above conditions, or other urologic issues, please do not hesitate to contact me. The office telephone contact is [phone]. Sincerely, Dr Abhay Wilcox MD, [facility] - Urology Compassionate Specialist Care for the Genitourinary System Coding Level of Care Code Est Pt Level 3 (79181) Diagnoses Bladder cancer C67.9 Erectile dysfunction associated with type 2 diabetes mellitus E11.69; N52.1
--- OUTSIDE RECORDS SUMMARY | 2024-10-25 13:56 | XMS_ITS | Encounter Summary ---
Author Organization [employer] Address [address] [place] [address] Care Team Providers Care County Manager Name Role Phone Unavailable Primary Care Provider Unavailabl e Encounter Details Date Type Department Care Team (Late st Contact Info) Description 11/27/2022 Abstract [facility] ADULT DENT[facility] [address] [place] [address] Barry Larios DMD [address] [place] [address] Social History Tobacco Use Types Packs/Day Years [...]
--- OUTSIDE RECORDS SUMMARY | 2024-10-25 13:56 | XMS_ITS | Data Portability ---
Author Organization [employer] Address [address] [place] [address] Assessment Encounter Date Assessment Date Assessment LastModified by Organization Details LastModified Time 01/06/2023 01/06/2023 I have reviewed and agree with the assessment and plan as documented by the deli clerk. I provided real-time medical direction for this [...] 4 mg disintegrat ing tablet [address] [facility]/Pharmacy #[id number], [address] [place], [address], 17:47:22 Patient TargetsNo targets recorded. Patient InstructionsNo [...] Details Last Updated DateTime 3 16 /min 78310.6 8 g 100 % 100 % 97 [degF] 73 /min 185 mm[Hg] 71 mm[Hg] Not Available [facility] - production 17:43:15 Social History None recorded. Functional Status None recorded. Mental Status None recorded. Family History Nothing Reported. Medical History No medical history recorded. Past Encounters Encounter ID Performer Location Encounter Start Date Encounter Closed Date Diagnosis/Indication Diagnosis SNOMED-CT Code Diagnosis ICD10 Code Diagnosis Note [id number] Calista Giles MD Main - [facility] [address] [place] [phone] 01/06/2023 17:43:03 01/07/2023 10:43:50 Gastroenteritis [id number] K52.9 Health Concerns Section Related Observation LastModified by Organization Detai ls LastModified Time None Recorded Concern Status LastModified by Organization Details LastModified Time None Recorded Advance Directives Directive None Recorded Payers Encounter Date Sequence Insurance Name Policy Number Policy Cat Covered Member ID Cat Member ID Guarantor Name 01/06/2023 1 [facility] - DOS ON OR AFTER 2022 - DUAL ELIGIBLE - HALF-WAY OPTIONS AND ONE CARE (MEDICARE REPLACEMENT/ADV ANTAGE - HMO) Luan Jameson [id number] Luan Jameson Notes Date Note Type Note [...] calling on behalf of member to request [facility] visit with complaints of N/V and abdominal discomfort s/p eating food that did no agree with him' deny fevers. unsure if attempt meds. Verify member name/- .................. .................. .................. .................. .................. .................. .................. ............... [employer] Note From Alexander Figueroa: Pt CO NVD [...] ............... Disposition: Fulfilled Calista Giles MD [address] [facility],[address], [place], [address], [employer] 01/06/2023 17:47:36
--- OUTSIDE RECORDS SUMMARY | 2024-10-25 13:56 | XMS_ITS | Clinical Summary ---
Author Organization [employer] Address [address] [place] [address] Care Team Providers Care Market Basket Maker Name Role Phone Unavailable Primary Care Provider [...] Recently Relevant to Health Maintenance Insurance [facility]
== END 2024-10-25 12:07 | disposition home or self-care (01) ==
LOC: HO.HUSH 11:23
PROVIDERS: PCP Internal Medicine; Visit Provider Urology
DX: C67.9 Malignant neoplasm of bladder, unspecified (principal); E11.69 Type 2 diabetes mellitus with other specified complication; N52.1 Erectile dysfunction due to diseases classified elsewhere
CPT/HCPCS: 99213

== ENCOUNTER → 2024-10-25 11:23 | Outpatient (BNVA) | payer OTHER, SELFPAY | PROVIDERS: PCP Internal Medicine; Visit Provider Urology | DX: C67.9 Malignant neoplasm of bladder, unspecified (principal); E11.69 Type 2 diabetes mellitus with other specified complication; N52.1 Erectile dysfunction due to diseases classified elsewhere | CPT/HCPCS: 99212 ==

== ENCOUNTER 2024-11-21 13:47 | Outpatient (AMB) | payer OTHER, SELFPAY ==
--- NOTE | 2024-11-21 13:59 | A.OFFPC_ITS ---
Vital Signs 11/21/24 14:00 Height 5 ft 9 in Weight 172 lb BMI 25.4 BP 112/76 Blood Pressure Location Lt brachial Position Sitting Pulse 72 Pulse Source Pulse Oximeter Pulse Oximetry (%) 96 Oxygen Delivery Method Room Air Intake Visit Reasons: postlaminectomy syndrome Field Observer Required: No Accompanied by: Self / Same As Patient Allergies metformin Adverse Reaction (Intermediate, Verified 11/21/24 14:05) stomach pain Tobacco use date assessed: 08/18/24 Fall risk assessment: No Falls in past year Last assessed Fall Risk: 11/21/24 Dental Screening Dental Screen Date: 11/21/24 Did you have a dental visit in the last 12 months?: Yes Did you have a dental problem in the last 6 months where you did not have access to dental care?: No Was dental information given to patient?: Patient has dentist [facility] Medical History (Updated 04/04/24 @ 12:41 by Yue Daley MD) Hypoglycemia unawareness associated with type 2 diabetes mellitus Diabetes type 2, uncontrolled Dyslipidemia Diabetes type 2, controlled Acid reflux Right knee pain Annual physical exam Type 2 diabetes mellitus with hyperglycemia Hypertension Diabetic retinopathy associated with type 2 diabetes mellitus Diabetic polyneuropathy associated with type 2 diabetes mellitus Diabetic nephropathy associated with type 2 diabetes mellitus Surgical History Hx of ileostomy History of esophagogastroduodenoscopy (EGD) Hx of colonoscopy History of lumbar fusion Hx of nephrostomy Hx of bladder cancer History of back surgery Family History Father No problems noted. Mother Myocardial infarct Social History Household Members: Spouse Housing: Apartment Alcohol intake: current Alcohol intake frequency: holidays/special occasions only Comment: 1 a month 2-4 shots Patient Tobacco Use Status: Former Tobacco user Tobacco use type: Cigarette Years Smoked: quit 2010 e-Cigarette/Vaping Use: Never Used Second Hand Smoke Exposure: Yes Substance Use Type: Marijuana service: No Current occupational status: disabled Cognitive needs: No Hearing needs: No Vision needs: No Questionnaire PHQ-9 Over the last 2 weeks, how often have you been bothered by any of the following problems? 1. Little interest or pleasure in doing things: not at all 2. Feeling down, depressed, or hopeless: not at all 3. Trouble falling or staying asleep, or sleeping too much: not at all 4. Feeling tired or having little energy: not at all 5. Poor appetite or overeating: not at all 6. Feeling bad about yourself - or that you are a failure or have let yourself or your family down: not at all 7. Trouble concentrating on things, such as reading the newspaper or watching television: not at all 8. Moving or speaking so slowly that other people could have noticed. Or the opposite - being so fidgety or restless that you have been moving around a lot more than usual: not at all 9. Thoughts that you would be better off or of hurting yourself in some way: not at all Total score: 0 Depression Screening Interpretation: Negative Depression Screening Done: Yes Source: Developed by Drs. Dimitri Fontaine, Janine Powell, Rajeev Guerra and colleagues, with an educational brooke from [employer]. Thrive Questionnaire Date Thrive assessed: 11/21/24 I am a: Patient What is your living situation today?: I have a steady place to live Within the past 12 months, did the food you bought not last and you didn't have the money to get more?: Never true Within the past 12 months, did you worry whether your food would run out before you got money to buy more?: Never true Do you have trouble paying for medicines?: No Do you have trouble getting transportation to medical appointments?: No Do you have trouble paying your heating and electricity bill?: No Do you have trouble taking care of your child, family member or friend?: No Do you have trouble with day-to-day activities such as bathing, preparing meals, shopping, managing finances, etc.?: No Are you currently unemployed and looking for a job?: No Are you interested in more education?: No Please select the resources that you would like help with: None Currently or been in a relationship where the following occur: No concerns reported THRIVE Score: 0 AUDIT C Alcohol Use Questionnaire (AUDIT-C) 1. How often do you have a drink containing alcohol?: 2-4 times a month 2. How many drinks containing alcohol do you have on a typical day when you are drinking?: 1 or 2 3. How often do you have six or more drinks on one occasion?: Monthly Total Score: 4 LADARIUS-7 AMB Questionnaire LADARIUS-7 Date LADARIUS - 7 assessed: 11/21/24 Feeling nervous, anxious, or on edge: 0 = Not at all Not being able to stop or control worryin = Not at all Worrying too much about different things: 0 = Not at all Trouble relaxin = Not at all Being so restless that it is hard to sit still: 0 = Not at all Becoming easily annoyed or irritable: 0 = Not at all Feeling afraid as if something awful might happen: 0 = Not at all Total LADARIUS-7 score (0-4 normal; 5-9 mild; 10-14 moderate; 15-21 severe): 0 Source: Developed by Drs. Dimitri Fontaine, Janine Powell, Rajeev Guerra and colleagues, with an educational brooke from [employer]. Physical exam (Primary Care) Vital Signs: Last Vital Signs Pulse 72 11/21/24 14:00 BP 112/76 11/21/24 14:00 Pulse Ox 96 11/21/24 14:00 Oxygen Delivery Method Room Air 11/21/24 14:00 BMI result Body Mass Index 25.4 Tobacco/Smoking Status: Tobacco use Status Tobacco use date assessed 08/18/24 11/21/24 14:06 Patient Tobacco Use Status Former Tobacco user 11/21/24 14:06 Tobacco use type Cigarette 11/21/24 14:06 e-Cigarette/Vaping Use Never Used 11/21/24 14:06 PHQ-9: PHQ-9 Score PHQ-9: Total score 0 11/21/24 14:47 Depression Screening Interpretation: Negative Thrive Assessment: Date of Thrive Assessment Date Thrive assessed 11/21/24 11/21/24 14:06 Currently or been in a relationship where the following occur: No concerns reported Const General: alert; No acute distress Eyes Conjunctivae: conjunctivae normal Resp Auscultation: clear to auscultation bilaterally Cardio Rate: regular rate Rhythm: regular rhythm GI Inspection: Yes normal to inspection Extrem General: Yes normal to inspection and No edema Coding Level of Care Code Est Pt Level 4 (44274) Complex EM visit Add On G2211 Diagnoses Essential hypertension I10 Hypertension type: essential hypertension Postlaminectomy syndrome, lumbar M96.1 CAD (coronary artery disease) I25.10 Type 2 diabetes mellitus with hyperglycemia E11.65 Hypercholesterolemia E78.00 GERD (gastroesophageal reflux disease) K21.9 Assessment & Plan Assessment & Plan (1) Hypertension: Code(s): I10 - Essential (primary) hypertension Category: Medical Qualifiers: Hypertension type: essential hypertension Qualified Code(s): I10 - Essential (primary) hypertension Plan: Continue with blood pressure medication. Decrease salt intake and exercise patient on lisinopril 2.5 mg once a day metoprolol 25 mg once a day nifedipine 60 mg once a day an (2) Postlaminectomy syndrome, lumbar: Code(s): M96.1 - Postlaminectomy syndrome, not elsewhere classified Category: Medical Plan: On Percocet for pain. Narcotic pain meds: Is being prescribed with the understanding that these medications are potentially addictive and should be used only when absolutely necessary and must always be secured. Any remaining pills should be safely disposed off appropriately. Patient is advised that narcotics can impaired judgment and one should not drive or operate heavy machinery while taking these medications. Never share these medications with anybody and do not leave them unattended. They will not be replaced under any circumstances. (3) CAD (coronary artery disease): Comment: 2013 (as per patient) Code(s): I25.10 - Atherosclerotic heart disease of [place] coronary artery without angina pectoris Category: Medical Plan: Control the cholesterol, weight, blood pressure, diabetes continuing with aspirin 81 mg once a day (4) Type 2 diabetes mellitus with hyperglycemia: Comment: Dr. Eason Code(s): E11.65 - Type 2 diabetes mellitus with hyperglycemia Category: Medical Plan: Decrease the amount of carbohydrate intake, pasta, bread, rice and potatoes are all sugar and that is aside from all the sweet stuff, remember that fruits are good but they are Sweet also. Hemoglobin A1c goal of less than 7.0 patient is on Jardiance 25 mg once a day Lantus 10 units once a day Mounjaro 2.5 mg once a week (5) Hypercholesterolemia: Code(s): E78.00 - Pure hypercholesterolemia, unspecified Category: Medical Plan: Avoid fried foods, chicken skin, eggs, butter margarine, pastries and meat. Be it pork or beef they have a lot of cholesterol LDL goal of less than 70 and triglyceride of less than 150 patient on atorvastatin 80 mg once a day (6) GERD (gastroesophageal reflux disease): Code(s): K21.9 - Gastro-esophageal reflux disease without esophagitis Category: Medical Plan: Avoid the foods that causes that usually spicy foods, tomato products, juices, coffee, soda and foods that your sensitive to. After eating do not lie down, allow 3-4 hours before in lie down. And keep the head of bed above 30 degrees to avoid the acid from going up. Plan History of Present Illness The patient is a 69-year-old male presenting with a follow-up for chronic condition management and medication review. The patient has a history of diabe annetta mellitus with recent blood sugar level of 203 mg/dL and a high hemoglobin A1c of 9.0%, necessitating review and adjustment of his current treatment regimen. His hypertension is under management with multiple medications and his blood pressure control is continually monitored and adjusted as needed. He also reports using Percocet to manage pain associated with his post-laminectomy syndrome. This has led to discussions about optimizing pain management, potentially with the involvement of a specialized pain management consultation. Regarding hypercholesterolemia, the current treatment plan includes atorvastatin where a previous administration error was noted. Triglyceride levels are elevated, highlighting an opportunity for dietary or pharmacological intervention. The patient also manages GERD with prescribed medication adjustments aimed at symptom management and control. Health Maintenance - Colonoscopy screening up to date as of April 2022. - Discussion on weight management and increasing physical activity to help manage cholesterol and diabetes. Social History - Reports exercising regularly but experiencing pain after physical activity related to post-laminectomy syndrome. Review of Systems - General: Reports unintentional weight loss of 8 pounds. - Endocrine: Reports issues with blood sugar control. - Cardiovascular: Denies chest pain. - Gastrointestinal: Reports GERD; denies nausea and vomiting. - Musculoskeletal: Reports pain related to post-laminectomy syndrome; denies new joint pains. - Neurological: Denies recent changes in neurological symptoms. Physical Exam Results - Labs: Hemoglobin A1c 9.0%, Blood glucose 203 mg/dL, LDL cholesterol 56 mg/dL, Triglycerides 214 mg/dL. - Electrolytes normal, renal function stable. Plan 1. 0%. Hypercholesterolemia will continue to be managed with atorvastatin 80 mg now that the prescription issue is resolved, maintaining LDL goals under 70 mg/dL. Pain management for post-laminectomy syndrome will include consultation with a pain specialist and additional analgesics as needed. Hypertriglyceridemia will be addressed primarily through lifestyle interventions before considering additional pharmacotherapy. Antihypertensive medications will remain consistent, and comprehensive follow-up laboratory work will guide further treatment adjustments.: Patient was informed and verbally consented to the use of an ambient scribe for clinic note documentation during this visit. Discussion Notes During this visit, I discussed with the patient the current health status and management plan for his chronic conditions, including diabetes mellitus, hypertension, post-laminectomy syndrome, and hypercholesterolemia. We reviewed his recent change in hemoglobin A1c and cholesterol levels and the necessity to increase the Mounjaro dose to enhance diabetic control. Potential changes in lipid management were considered, focusing on lifestyle modifications with the possibility of fenofibrate at a later stage if triglyceride levels remain elevated. A consultation to pain management was recommended to address ongoing discomfort effectively. The risks and benefits of increasing pharmacotherapy were discussed, alongside the vital role of diet and exercise in influencing treatment outcomes. The importance of monitoring and follow-up was emphasized to ensure efficacy and safety of the care plan. Patient Instructions - Take Jardiance, Lantus, and Mounjaro as prescribed and discuss any side effects. - Use atorvastatin 80 mg as directed to manage cholesterol levels. - Continue current pain medication; consider the referral for pain management. - Maintain regular blood pressure checks and take antihypertensives as prescribed. - Follow dietary recommendations and increase physical activity to improve blood glucose and lipid levels. - Schedule follow-up appointments as advised and complete lab tests as requested. - Report any new symptoms or adverse reactions to medications promptly. Orders: Referrals Pain Management Referral M96.1 - Postlaminectomy syndrome, not elsewhere classified Medications: Changed From tirzepatide (Mounjaro) for 4 weeks 2.5 mg (0.5 mL) subcut QWEEK 2 mL 2RF E11.65 - Type 2 diabetes mellitus with hyperglycemia To tirzepatide for 4 weeks 5 mg (0.5 mL) subcut QWEEK 2.5 mL 2RF 30 days E11.65 - Type 2 diabetes mellitus with hyperglycemia From oxycodone-acetaminophen 5-325 mg 1 tab PO BID 30 days PRN 60 tabs 0RF pain Z98.1 - Arthrodesis status To oxycodone-acetaminophen 5-325 mg 1 tab PO TID PRN 75 tabs 0RF pain 30 days Z98.1 - Arthrodesis status Refilled atorvastatin 80 mg PO DAILY 90 tabs 3RF 90 days E78.5 - Hyperlipidemia, unspecified omeprazole 20 mg PO DAILY 90 caps 3RF 90 days J03.90 - Acute tonsillitis, unspecified
[2024-11-21 14:00] VITALS: BP 112/76; PULSE 72; O2SAT 96; BMI 25.4
--- OUTSIDE RECORDS SUMMARY | 2024-11-21 15:57 | XMS_ITS | Data Portability ---
Author Organization [facility] [employer] Address [address] [place] [address] Assessment Encounter Date Assessment Date Assessment LastModified by Organization Details LastModified Time 01/06/2023 01/06/2023 I have reviewed and agree with the assessment and plan as documented by the drapery installer. I provided real-time medical direction for this [...] 4 mg disintegrat ing tablet 2022 023 [facility] #[id number], [address] [place], [address], 17:47:22 Patient TargetsNo targets recorded. Patient InstructionsNo [...] Details Last Updated DateTime 3 16 /min 70512.6 8 g 100 % 100 % 97 [degF] 73 /min 185 mm[Hg] 71 mm[Hg] Not Available [facility] - production 17:43:15 Social History None recorded. Functional Status None recorded. Mental Status None recorded. Family History Nothing Reported. Medical History No medical history recorded. Past Encounters Encounter ID Performer Location Encounter Start Date Encounter Closed Date Diagnosis/Indication Diagnosis SNOMED-CT Code Diagnosis ICD10 Code Diagnosis Note [id number] Calista Giles MD [facility] - [facility] [address] [place] [phone] 01/06/2023 17:43:03 01/07/2023 10:43:50 Gastroenteritis 44075640 K52.9 Health Concerns Section Related Observation LastModified by Organization Detai ls LastModified Time None Recorded Concern Status LastModified by Organization Details LastModified Time None Recorded Advance Directives Directive None Recorded Payers Encounter Date Sequence Insurance Name Policy Number Policy Cat Covered Member ID Cat Member ID Guarantor Name 01/06/2023 1 [facility] - DOS ON OR AFTER 2022 - DUAL ELIGIBLE - [employer] AND ONE CARE (MEDICARE REPLACEMENT/ADV ANTAGE - HMO) Luan Jameson [id number] Luan Jameson Notes Date Note Type Note [...] calling on behalf of member to request [facility] visit with complaints of N/V and abdominal discomfort s/p eating food that did no agree with him' deny fevers. unsure if attempt meds. Verify member name/- .................. .................. .................. .................. .................. .................. .................. ............... Dip Painter Note From Alexander Figueroa: Pt [place] NVD [...] ............... Disposition: Fulfilled Calista Giles MD [address] [facility],[address], [place], [phone], [facility] 01/06/2023 17:47:36
== END 2024-11-21 14:54 | disposition home or self-care (01) ==
LOC: HO.HMCH 13:48
PROVIDERS: PCP Internal Medicine; Visit Provider Internal Medicine
DX: I10 Essential (primary) hypertension (principal); M96.1 Postlaminectomy syndrome, not elsewhere classified; I25.10 Atherosclerotic heart disease of native coronary artery without angina pectoris; E11.65 Type 2 diabetes mellitus with hyperglycemia; E78.00 Pure hypercholesterolemia, unspecified; K21.9 Gastro-esophageal reflux disease without esophagitis

== ENCOUNTER → 2024-11-21 13:47 | Outpatient (BNVA) | payer OTHER, SELFPAY | PROVIDERS: PCP Internal Medicine; Visit Provider Internal Medicine | DX: I10 Essential (primary) hypertension (principal); M96.1 Postlaminectomy syndrome, not elsewhere classified; I25.10 Atherosclerotic heart disease of native coronary artery without angina pectoris; E11.65 Type 2 diabetes mellitus with hyperglycemia; E78.00 Pure hypercholesterolemia, unspecified; K21.9 Gastro-esophageal reflux disease without esophagitis; J03.90 Acute tonsillitis, unspecified; Z98.1 Arthrodesis status; Z79.891 Long term (current) use of opiate analgesic | CPT/HCPCS: 96127; 99212 ==

== ENCOUNTER 2025-01-16 12:36 | Outpatient (AMB) | payer OTHER, SELFPAY ==
[2025-01-16 12:44] VITALS: BP 110/74; PULSE 75; O2SAT 96; BMI 25.1
--- NOTE | 2025-01-16 12:44 | A.OFFPC_ITS ---
Vital Signs 3 01/16/25 12:44 Height 5 ft 9 in Weight 170 lb BMI 25.1 BP 110/74 Blood Pressure Location Lt brachial Position Sitting Pulse 75 Pulse Source Pulse Oximeter Pulse Oximetry (%) 96 Oxygen Delivery Method Room Air Intake Visit Reasons: sore on left foot Diagnostic Tech Required: No Accompanied by: Self / Same As Patient Allergies metformin Adverse Reaction (Intermediate, Verified 01/16/25 12:45) stomach pain Medication List - Last Reconciled 01/16/25 by Yue Daley MD aspirin (Adult Aspirin Regimen) 81 mg PO DAILY atorvastatin 80 mg PO DAILY 90 days blood sugar diagnostic (Pegastech Ultra Test strips) DIRECTED THREE TIMES A DAY blood sugar diagnostic As directed three times a day blood-glucose meter (Pegastech Ultra2 Meter kit) test 3 times per day [CANE As directed] colostomy bag, non-sterile As directed empagliflozin 25 mg PO DAILY 90 days insulin glargine (Lantus Solostar U-100 Insulin) 10 units (0.1 mL) subcut QPM lancets (Pegastech Delica Lancets) Test 3 times daily lisinopril 2.5 mg PO DAILY 90 days metoprolol succinate ER 25 mg (1/2 x 50 mg) PO DAILY 90 days nifedipine ER 60 mg PO DAILY 90 days omeprazole 20 mg PO DAILY 90 days oxycodone-acetaminophen 5-325 mg 1 tab PO TID PRN 30 days pen needle, diabetic Once a day [rollator As directed] [SHOWER CHAIR As directed] sucralfate (Carafate) 1 g PO BID 90 days [Three Wheel Scooter As directed] tirzepatide 5 mg (0.5 mL) subcut QWEEK 30 days zolpidem 10 mg PO BEDTIME 90 days Tobacco use date assessed: 01/16/25 Fall risk assessment: No Falls in past year Last assessed Fall Risk: 01/16/25 Dental Screening Dental Screen Date: 01/16/25 Did you have a dental visit in the last 12 months?: Yes Did you have a dental problem in the last 6 months where you did not have access to dental care?: No Was dental information given to patient?: Patient has dentist [facility] Medical History (Updated 01/16/25 @ 12:56 by Yue Daley MD) Hypoglycemia unawareness associated with type 2 diabetes mellitus Diabetes type 2, uncontrolled Dyslipidemia Diabetes type 2, controlled Acid reflux Right knee pain Annual physical exam Type 2 diabetes mellitus with hyperglycemia Hypertension Diabetic retinopathy associated with type 2 diabetes mellitus Diabetic polyneuropathy associated with type 2 diabetes mellitus Diabetic nephropathy associated with type 2 diabetes mellitus Surgical History Hx of ileostomy History of esophagogastroduodenoscopy (EGD) Hx of colonoscopy History of lumbar fusion Hx of nephrostomy Hx of bladder cancer History of back surgery Family History Father No problems noted. Mother Myocardial infarct Social History Household Members: Spouse Housing: Apartment Alcohol intake: current Alcohol intake frequency: holidays/special occasions only Comment: 1 a month 2-4 shots Patient Tobacco Use Status: Former Tobacco user Tobacco use type: Cigarette Years Smoked: quit 2010 e-Cigarette/Vaping Use: Never Used Second Hand Smoke Exposure: Yes Substance Use Type: Marijuana service: No Current occupational status: disabled Cognitive needs: No Hearing needs: No Vision needs: No Questionnaire PHQ-9 Over the last 2 weeks, how often have you been bothered by any of the following problems? 1. Little interest or pleasure in doing things: not at all 2. Feeling down, depressed, or hopeless: not at all 3. Trouble falling or staying asleep, or sleeping too much: not at all 4. Feeling tired or having little energy: not at all 5. Poor appetite or overeating: not at all 6. Feeling bad about yourself - or that you are a failure or have let yourself or your family down: not at all 7. Trouble concentrating on things, such as reading the newspaper or watching television: not at all 8. Moving or speaking so slowly that other people could have noticed. Or the opposite - being so fidgety or restless that you have been moving around a lot more than usual: not at all 9. Thoughts that you would be better off or of hurting yourself in some way: not at all Total score: 0 Depression Screening Interpretation: Negative Depression Screening Done: Yes Source: Developed by Janine Rodriguez.W. Andre, Rajeev Guerra and colleagues, with an educational brooke from [employer]. Thrive Questionnaire Date Thrive assessed: 01/16/25 I am a: Patient What is your living situation today?: I have a steady place to live Within the past 12 months, did the food you bought not last and you didn't have the money to get more?: Never true Within the past 12 months, did you worry whether your food would run out before you got money to buy more?: Never true Do you have trouble paying for medicines?: No Do you have trouble getting transportation to medical appointments?: No Do you have trouble paying your heating and electricity bill?: No Do you have trouble taking care of your child, family member or friend?: No Do you have trouble with day-to-day activities such as bathing, preparing meals, shopping, managing finances, etc.?: No Are you currently unemployed and looking for a job?: No Are you interested in more education?: No Please select the resources that you would like help with: None Currently or been in a relationship where the following occur: No concerns reported THRIVE Score: 0 AUDIT C Alcohol Use Questionnaire (AUDIT-C) 1. How often do you have a drink containing alcohol?: 2-4 times a month 2. How many drinks containing alcohol do you have on a typical day when you are drinking?: 1 or 2 3. How often do you have six or more drinks on one occasion?: Monthly Total Score: 4 LADARIUS-7 AMB Questionnaire LADARIUS-7 Date LADARIUS - 7 assessed: 01/16/25 Feeling nervous, anxious, or on edge: 0 = Not at all Not being able to stop or control worryin = Not at all Worrying too much about different things: 0 = Not at all Trouble relaxin = Not at all Being so restless that it is hard to sit still: 0 = Not at all Becoming easily annoyed or irritable: 0 = Not at all Feeling afraid as if something awful might happen: 0 = Not at all Total LADARIUS-7 score (0-4 normal; 5-9 mild; 10-14 moderate; 15-21 severe): 0 Source: Developed by Drs. Dimitri Fontaine, Janine Powell, Rajeev Guerra and colleagues, with an educational brooke from [employer]. Physical exam (Primary Care) Vital Signs: Last Vital Signs Pulse 75 01/16/25 12:44 BP 110/74 01/16/25 12:44 Pulse Ox 96 01/16/25 12:44 Oxygen Delivery Method Room Air 01/16/25 12:44 BMI result Body Mass Index 25.1 Tobacco/Smoking Status: Tobacco use Status Tobacco use date assessed 01/16/25 01/16/25 12:48 Patient Tobacco Use Status Former Tobacco user 01/16/25 12:48 Tobacco use type Cigarette 01/16/25 12:48 e-Cigarette/Vaping Use Never Used 01/16/25 12:48 PHQ-9: PHQ-9 Score PHQ-9: Total score 0 01/16/25 12:48 Depression Screening Interpretation: Negative Thrive Assessment: Date of Thrive Assessment Date Thrive assessed 01/16/25 01/16/25 12:48 Currently or been in a relationship where the following occur: No concerns reported Const General: alert; No acute distress Eyes Conjunctivae: conjunctivae normal Resp Auscultation: clear to auscultation bilaterally Cardio Rate: regular rate Rhythm: regular rhythm GI Inspection: Yes normal to inspection Extrem General: Yes normal to inspection and No edema Ankle/foot/toe images: 2 1. 3 in heel rash with scaly surface and noted a small hematoma on the edge. Results AMB Hemoglobin A1c 2 AMB Hemoglobin A1c 8.0 % Last Edit by HEENA Pang on 01/16/25 13 :04 Coding Level of Care Code Est Pt Level 4 (73242) Complex EM visit Add On G2211 Diagnoses Type 2 diabetes mellitus with hyperglycemia E11.65 CAD (coronary artery disease) I25.10 Essential hypertension I10 Hypertension type: essential hypertension Hypercholesterolemia E78.00 GERD (gastroesophageal reflux disease) K21.9 Bladder cancer C67.9 Postlaminectomy syndrome, lumbar M96.1 Heel sore L98.9 Assessment & Plan Assessment & Plan (1) Type 2 diabetes mellitus with hyperglycemia: Comment: Dr. Eason Code(s): E11.65 - Type 2 diabetes mellitus with hyperglycemia Category: Medical Plan: Decrease the amount of carbohydrate intake, pasta, bread, rice and potatoes are all sugar and that is aside from all the sweet stuff, remember that fruits are good but they are Sweet also. Patient's diabetes is not under control on Jardiance 25 mg once a day Lantus at 10 units once a day tirzepatide at 5 mg once a week (2) CAD (coronary artery disease): Comment: 2013 (as per patient) Code(s): I25.10 - Atherosclerotic heart disease of [place] coronary artery without angina pectoris Category: Medical Plan: Control the cholesterol, weight, blood pressure, diabetes on aspirin 81 mg once a day (3) Hypertension: Code(s): I10 - Essential (primary) hypertension Category: Medical Qualifiers: Hypertension type: essential hypertension Qualified Code(s): I10 - Essential (primary) hypertension Plan: Continue with blood pressure medication. Decrease salt intake and exercise patient takes lisinopril 2.5 mg once a day metoprolol 25 mg once a day nifedipine at 60 mg once a day (4) Hypercholesterolemia: Code(s): E78.00 - Pure hypercholesterolemia, unspecified Category: Medical Plan: Avoid fried foods, chicken skin, eggs, butter margarine, pastries and meat. Be it pork or beef they have a lot of cholesterol LDL goal of less than 70 and triglyceride of less than 150 patient is on atorvastatin 80 mg once a day last blood work was September 2024 (5) GERD (gastroesophageal reflux disease): Code(s): K21.9 - Gastro-esophageal reflux disease without esophagitis Category: Medical Plan: Avoid the foods that causes that usually spicy foods, tomato products, juices, coffee, soda and foods that your sensitive to. After eating do not lie down, allow 3-4 hours before in lie down. And keep the head of bed above 30 degrees to avoid the acid from going up. (6) Bladder cancer: Comment: Cystoprostatectomy 2017 [facility], STOMA placement RLQ [facility] Code(s): C67.9 - Malignant neoplasm of bladder, unspecified Category: Medical Plan: Continue to follow-up with urology (7) Postlaminectomy syndrome, lumbar: Code(s): M96.1 - Postlaminectomy syndrome, not elsewhere classified Category: Medical Plan: Narcotic pain meds: Is being prescribed with the understanding that these medications are potentially addictive and should be used only when absolutely necessary and must always be secured. Any remaining pills should be safely disposed off appropriately. Patient is advised that narcotics can impaired judgment and one should not drive or operate heavy machinery while taking these medications. Never share these medications with anybody and do not leave them unattended. They will not be replaced under any circumstances. (8) Heel sore: Comment: LEFT Code(s): L98.9 - Disorder of the skin and subcutaneous tissue, unspecified Category: Medical Plan History of Present Illness The patient is a 69-year-old male presenting for follow-up of multiple chronic conditions including diabetes mellitus, hypertension, and hypercholesterolemia. The patient has a history of diabetes mellitus, which is currently not well- controlled with a hemoglobin A1c of 9%. He is currently on Jardiance 25 mg once daily, Lantus 10 units once daily, and tirzepatide 5 mg once weekly. Despite this regimen, his diabetes remains uncontrolled, indicating a need for further management adjustments. The patient also has a history of hypertension, managed with lisinopril 2.5 mg, metoprolol 25 mg, and nifedipine 60 mg, all taken once daily. His blood pressure management appears stable with this regimen. He has a history of coronary artery disease and is on aspirin 81 mg daily as part of his management plan. The patient has a history of hypercholesterolemia with elevated triglycerides at 214 mg/dL. He is currently on atorvastatin 80 mg once daily to manage his cholesterol levels. The patient has a history of bladder cancer diagnosed in 2017, and he continues to follow up with urology for ongoing management. Preventative care measures include a colonoscopy last performed in 2021. Health Maintenance - Colonoscopy last performed in 2021 Social History Review of Systems - General: Reports weight loss over the past 8 months - Respiratory: Reports cough Physical Exam Results - Labs: Hemoglobin A1c is 9% - Labs: Triglycerides are 214 mg/dL Plan The patient's diabetes management requires adjustment due to the current regimen not achieving adequate glycemic control, as indicated by a hemoglobin A1c of 9%. Consideration for medication adjustment or additional therapeutic interventions may be necessary. For hypertension, the current regimen of lisinopril, metoprolol, and nifedipine appears effective, and no changes are indicated at this time. The patient's coronary artery disease is managed with aspirin, and continued monitoring is advised. Hypercholesterolemia management includes atorvastatin, and further lipid profile monitoring is recommended to assess the effectiveness of the current treatment plan. Continued follow-up with urology for bladder cancer surveillance is necessary, given the patient's history. Patient was informed and verbally consented to the use of an ambient scribe for clinic note documentation during this visit. Discussion Notes Patient Instructions Orders: Orders 2 AMB Hemoglobin A1c Today Z13.9 - Encounter for screening, unspecified Referrals 2 Podiatry Referral E11.65 - Type 2 diabetes mellitus with hyperglycemia, L98.9 - Disorder of the skin and subcutaneous tissue, unspecified Medications: Refilled 2 tirzepatide for 4 weeks 5 mg (0.5 mL) subcut QWEEK 2.5 mL 2RF 30 days E11.65 - Type 2 diabetes mellitus with hyperglycemia
--- OUTSIDE RECORDS SUMMARY | 2025-01-16 14:09 | XMS_ITS | Encounter Summary ---
Author Organization [employer] Address [address] [place] [address] Care Team Providers Care Accounting Analyst Name Role Phone Unavailable Primary Care Provider Unavailabl e Encounter Details Date Type Department Care Team (Late Contact Info) Description 11/27/2022 Abstract [facility] [address] [place] [address] Barry Larios, GILDA [address] [place] [address] Social History Tobacco Use Types Packs/Day Years [...] as of this encounter Plan of Treatment Upcoming Encounters Date Type Department Care Team ([facility] Contact Info) Description 01/22/2025 9:30 AM EDT Office Visit [facility] [address] [place] [address] Zoran Marrero, GILDA [address] [place] [address] documented as of this encounter Visit Diagnoses Not on filedocumented in this encounter
== END 2025-01-16 14:42 | disposition home or self-care (01) ==
LOC: HO.HMCH 12:37
PROVIDERS: PCP Internal Medicine; Visit Provider Internal Medicine
DX: E11.65 Type 2 diabetes mellitus with hyperglycemia (principal); C67.9 Malignant neoplasm of bladder, unspecified; I25.10 Atherosclerotic heart disease of native coronary artery without angina pectoris; I10 Essential (primary) hypertension; E78.00 Pure hypercholesterolemia, unspecified; K21.9 Gastro-esophageal reflux disease without esophagitis; M96.1 Postlaminectomy syndrome, not elsewhere classified; L98.9 Disorder of the skin and subcutaneous tissue, unspecified

== ENCOUNTER → 2025-01-16 12:36 | Outpatient (BNVA) | payer OTHER, SELFPAY | PROVIDERS: PCP Internal Medicine; Visit Provider Internal Medicine | DX: E11.65 Type 2 diabetes mellitus with hyperglycemia (principal); I25.10 Atherosclerotic heart disease of native coronary artery without angina pectoris; I10 Essential (primary) hypertension; E78.00 Pure hypercholesterolemia, unspecified; K21.9 Gastro-esophageal reflux disease without esophagitis; C67.9 Malignant neoplasm of bladder, unspecified; M96.1 Postlaminectomy syndrome, not elsewhere classified; L98.9 Disorder of the skin and subcutaneous tissue, unspecified; Z79.4 Long term (current) use of insulin | CPT/HCPCS: 83036; 96127; 99212 ==

== ENCOUNTER 2025-03-09 13:02 | Outpatient (AMB) | payer OTHER, SELFPAY ==
--- OUTSIDE RECORDS SUMMARY | 2025-03-09 13:04 | XMS_ITS | Encounter Summary ---
Author Organization [employer] Address [address] [place] [address] Care Team Providers Care Trauma Program Manager Name Role Phone Unavailable Primary Care Provider Unavailabl e Encounter Details Date Type Department Care Team (Late st Contact Info) Description 11/27/2022 Abstract [facility] [address] [place] [address] Barry Larios DMD [address] [place] [address] Social History Tobacco Use Types Packs/Day Years [...]
--- NOTE | 2025-03-09 13:23 | A.OFFPC_ITS ---
Vital Signs 03/09/25 13:24 Height 5 ft 9 in Weight 165 lb BMI 24.4 BP 110/66 Blood Pressure Location Lt brachial Position Sitting Pulse 59 Pulse Source Pulse Oximeter Temp 97.3 F Temp Source Temporal Artery Scan Pulse Oximetry (%) 98 Oxygen Delivery Method Room Air Intake Visit Reasons: post laminectomy syndrom, DM Intake Note: Patient is here to follow up on Post Laminectomy syndrome, DM. [employer] Redevelopment Specialist Required: No Correctional Security Officer: Not Required per policy Accompanied by: Self / Same As Patient Allergies metformin Adverse Reaction (Intermediate, Verified 03/09/25 13:24) stomach pain Medication List - Last Reconciled 03/09/25 by Yue Daley MD aspirin (Adult Aspirin Regimen) 81 mg PO DAILY atorvastatin 80 mg PO DAILY 90 days blood sugar diagnostic (NuLabel Ultra Test strips) DIRECTED THREE TIMES A DAY blood sugar diagnostic As directed three times a day blood-glucose meter (NuLabel Ultra2 Meter kit) test 3 times per day [CANE As directed] colostomy bag, non-sterile As directed empagliflozin 25 mg PO DAILY 90 days insulin glargine (Lantus Solostar U-100 Insulin) 10 units (0.1 mL) subcut QPM lancets ([employer] Delica Lancets) Test 3 times daily lisinopril 2.5 mg PO DAILY 90 days metoprolol succinate ER 25 mg (1/2 x 50 mg) PO DAILY 90 days nifedipine ER 60 mg PO DAILY 90 days omeprazole 20 mg PO DAILY 90 days oxycodone-acetaminophen 5-325 mg 1 tab PO TID PRN 30 days pen needle, diabetic Once a day [rollator As directed] [SHOWER CHAIR As directed] sucralfate (Carafate) 1 g PO BID 90 days [Three Wheel Scooter As directed] zolpidem 10 mg PO BEDTIME 90 days Tobacco use date assessed: 03/09/25 Fall risk assessment: No Falls in past year Last assessed Fall Risk: 03/09/25 Dental Screening Dental Screen Date: 01/16/25 Did you have a dental visit in the last 12 months?: Yes Did you have a dental problem in the last 6 months where you did not have access to dental care?: No Was dental information given to patient?: Patient has dentist [facility], [facility] Medical History (Updated 01/16/25 @ 12:56 by Yue Daley MD) Hypoglycemia unawareness associated with type 2 diabetes mellitus Diabetes type 2, uncontrolled Dyslipidemia Diabetes type 2, controlled Acid reflux Right knee pain Annual physical exam Type 2 diabetes mellitus with hyperglycemia Hypertension Diabetic retinopathy associated with type 2 diabetes mellitus Diabetic polyneuropathy associated with type 2 diabetes mellitus Diabetic nephropathy associated with type 2 diabetes mellitus Surgical History Hx of ileostomy History of esophagogastroduodenoscopy (EGD) Hx of colonoscopy History of lumbar fusion Hx of nephrostomy Hx of bladder cancer History of back surgery Family History Father No problems noted. Mother Myocardial infarct Social History Household Members: Spouse Housing: Apartment Alcohol intake: current Alcohol intake frequency: holidays/special occasions only Comment: 1 a month 2-4 shots Patient Tobacco Use Status: Former Tobacco user Tobacco use type: Cigarette Years Smoked: quit 2010 e-Cigarette/Vaping Use: Never Used Second Hand Smoke Exposure: Yes Substance Use Type: Marijuana service: No Current occupational status: disabled Cognitive needs: No Hearing needs: No Vision needs: No Questionnaire PHQ-9 Over the last 2 weeks, how often have you been bothered by any of the following problems? 1. Little interest or pleasure in doing things: not at all 2. Feeling down, depressed, or hopeless: not at all 3. Trouble falling or staying asleep, or sleeping too much: not at all 4. Feeling tired or having little energy: not at all 5. Poor appetite or overeating: not at all 6. Feeling bad about yourself - or that you are a failure or have let yourself or your family down: not at all 7. Trouble concentrating on things, such as reading the newspaper or watching te levision: not at all 8. Moving or speaking so slowly that other people could have noticed. Or the opposite - being so fidgety or restless that you have been moving around a lot more than usual: not at all 9. Thoughts that you would be better off or of hurting yourself in some way: not at all Total score: 0 Depression Screening Interpretation: Negative Depression Screening Done: Yes Source: Developed by Drs. Dimitri Fontaine, Janine Powell, Rajeev Guerra and colleagues, with an educational brooke from [employer]. Thrive Questionnaire Date Thrive assessed: 01/16/25 I am a: Patient What is your living situation today?: I have a steady place to live Within the past 12 months, did the food you bought not last and you didn't have the money to get more?: Never true Within the past 12 months, did you worry whether your food would run out before you got money to buy more?: Never true Do you have trouble paying for medicines?: No Do you have trouble getting transportation to medical appointments?: No Do you have trouble paying your heating and electricity bill?: No Do you have trouble taking care of your child, family member or friend?: No Do you have trouble with day-to-day activities such as bathing, preparing meals, shopping, managing finances, etc.?: No Are you currently unemployed and looking for a job?: No Are you interested in more education?: No Please select the resources that you would like help with: None Currently or been in a relationship where the following occur: No concerns reported THRIVE Score: 0 AUDIT C Alcohol Use Questionnaire (AUDIT-C) 1. How often do you have a drink containing alcohol?: 2-4 times a month 2. How many drinks containing alcohol do you have on a typical day when you are drinking?: 1 or 2 3. How often do you have six or more drinks on one occasion?: Monthly Total Score: 4 LADARIUS-7 AMB Questionnaire LADARIUS-7 Date LADARIUS - 7 assessed: 01/16/25 Feeling nervous, anxious, or on edge: 0 = Not at all Not being able to stop or control worryin = Not at all Worrying too much about different things: 0 = Not at all Trouble relaxin = Not at all Being so restless that it is hard to sit still: 0 = Not at all Becoming easily annoyed or irritable: 0 = Not at all Feeling afraid as if something awful might happen: 0 = Not at all Total LADARIUS-7 score (0-4 normal; 5-9 mild; 10-14 moderate; 15-21 severe): 0 Source: Developed by Drs. Dimitri Fontaine, Janine Powell, Rajeev Guerra and colleagues, with an educational brooke from [employer]. Physical exam (Primary Care) Vital Signs: Last Vital Signs Temp 97.3 F 03/09/25 13:24 Pulse 59 03/09/25 13:24 BP 110/66 03/09/25 13:24 Pulse Ox 98 03/09/25 13:24 Oxygen Delivery Method Room Air 03/09/25 13:24 BMI result Body Mass Index 24.4 Tobacco/Smoking Status: Tobacco use Status Tobacco use date assessed 03/09/25 03/09/25 13:29 Patient Tobacco Use Status Former Tobacco user 03/09/25 13:29 Tobacco use type Cigarette 03/09/25 13:29 e-Cigarette/Vaping Use Never Used 03/09/25 13:29 PHQ-9: PHQ-9 Score PHQ-9: Total score 0 03/09/25 14:01 Depression Screening Interpretation: Negative Thrive Assessment: Date of Thrive Assessment Date Thrive assessed 01/16/25 03/09/25 13:29 Currently or been in a relationship where the following occur: No concerns reported Const General: alert; No acute distress Eyes Conjunctivae: conjunctivae normal Resp Auscultation: clear to auscultation bilaterally Cardio Rate: regular rate Rhythm: regular rhythm GI Inspection: Yes normal to inspection Extrem General: Yes normal to inspection and No edema Coding Level of Care Code Est Pt Level 4 (60416) Complex EM visit Add On G2211 Diagnoses CAD (coronary artery disease) I25.10 Hypercholesterolemia E78.00 Type 2 diabetes mellitus with hyperglycemia E11.65 GERD (gastroesophageal reflux disease) K21.9 Postlaminectomy syndrome, lumbar M96.1 Essential hypertension I10 Hypertension type: essential hypertension Bladder cancer C67.9 Heel sore L98.9 Assessment & Plan Assessment & Plan (1) CAD (coronary artery disease): Comment: 2013 (as per patient) Code(s): I25.10 - Atherosclerotic heart disease of [place] coronary artery without angina pectoris Category: Medical Plan: Control the cholesterol, weight, blood pressure, diabetes on aspirin 81 mg once a day (2) Hypercholesterolemia: Code(s): E78.00 - Pure hypercholesterolemia, unspecified Category: Medical Plan: Avoid fried foods, chicken skin, eggs, butter margarine, pastries and meat. Be it pork or beef they have a lot of cholesterol September 2024 last blood work LDL goal of less than 70 and triglyceride of less than 150 on atorvastatin 80 mg once a day LDL is at goal (3) Type 2 diabetes mellitus with hyperglycemia: Comment: Dr. Eason Code(s): E11.65 - Type 2 diabetes mellitus with hyperglycemia Category: Medical Plan: Decrease the amount of carbohydrate intake, pasta, bread, rice and potatoes are all sugar and that is aside from all the sweet stuff, remember that fruits are good but they are Sweet also. Hemoglobin A1c goal of less than 7.0 patient on Jardiance 25 mg once a day Lantus 10 units once a day tirzepatide has been prescribed in 5 mg once a week (4) GERD (gastroesophageal reflux disease): Code(s): K21.9 - Gastro-esophageal reflux disease without esophagitis Category: Medical Plan: Avoid the foods that causes that usually spicy foods, tomato products, juices, coffee, soda and foods that your sensitive to. After eating do not lie down, allow 3-4 hours before in lie down. And keep the head of bed above 30 degrees to avoid the acid from going up. (5) Postlaminectomy syndrome, lumbar: Code(s): M96.1 - Postlaminectomy syndrome, not elsewhere classified Category: Medical Plan: Narcotic pain meds: Is being prescribed with the understanding that these medications are potentially addictive and should be used only when absolutely necessary and must always be secured. Any remaining pills should be safely disposed off appropriately. Patient is advised that narcotics can impaired judgment and one should not drive or operate heavy machinery while taking these medications. Never share these medications with anybody and do not leave them unattended. They will not be replaced under any circumstances. (6) Hypertension: Code(s): I10 - Essential (primary) hypertension Category: Medical Qualifiers: Hypertension type: essential hypertension Qualified Code(s): I10 - Essential (primary) hypertension Plan: Continue with blood pressure medication. Decrease salt intake and exercise patient on nifedipine 60 mg once a day metoprolol 25 mg once a day lisinopril at 2.5 mg once a day (7) Bladder cancer: Comment: Cystoprostatectomy 2017 [facility], STOMA placement RLQ [facility] Code(s): C67.9 - Malignant neoplasm of bladder, unspecified Category: Medical Plan: Continue to follow-up with urology (8) Heel sore: Comment: LEFT Code(s): L98.9 - Disorder of the skin and subcutaneous tissue, unspecified Category: Medical Plan History of Present Illness The patient is a 69-year-old male presenting for follow-up of multiple chronic conditions including diabetes mellitus, hypertension, coronary artery disease, GERD, hypercholesterolemia, and postlaminectomy syndrome. The patient's diabetes mellitus has been managed with Jardiance and Lantus, with a recent hemoglobin A1c of 7.1, showing improvement from previous levels of 9 and 8. He checks his blood glucose levels twice daily and has been prescribed 300 test strips. Hypertension is managed with nifedipine, metoprolol, and lisinopril. The patient has a history of coronary artery disease and is on aspirin and atorvastatin, with an LDL goal of less than 70 mg/dL, which is currently at goal. For GERD, the patient is taking omeprazole. Postlaminectomy syndrome is managed with narcotic pain medication, which the chandrakant erwin has requested refills for. Preventative care includes an up-to-date colonoscopy as of April 2022. Health Maintenance - Colonoscopy up to date as of April 2022 - Discussion about shingles vaccine, highlighting its effectiveness and potential side effects Social History Review of Systems - Endocrine: Reports blood glucose levels improving, with a current hemoglobin A1c of 7.1 - Musculoskeletal: Reports postlaminectomy syndrome managed with narcotic pain medication Physical Exam Results - Labs: Hemoglobin A1c in December was 8.0, triglycerides elevated at 214 mg/dL, LDL at 56 mg/dL - Screening: Colonoscopy up to date as of April 2022 Plan The management plan for diabetes mellitus includes maintaining the current regimen of Jardiance and Lantus, with a goal to further reduce the hemoglobin A1c to below 7.0. The patient is advised to continue monitoring blood glucose levels twice daily. For hypertension, the patient will continue on nifedipine, metoprolol, and lisinopril, with regular monitoring of blood pressure. Coronary artery disease management includes continuation of aspirin and atorvastatin, with the LDL cholesterol goal being maintained at less than 70 mg/ dL. GERD management involves the continued use of omeprazole. For postlaminectomy syndrome, the patient will continue with narcotic pain medication, and refills have been provided. Preventative care includes ensuring the colonoscopy remains up to date and discussing the option of receiving the shingles vaccine, which is effective in preventing shingles but may have side effects. Patient was informed and verbally consented to the use of an ambient scribe for clinic note documentation during this visit. Discussion Notes I discussed with the patient the importance of maintaining his current diabetes management plan with Jardiance and Lantus, aiming for a hemoglobin A1c below 7.0. We reviewed his blood pressure management with nifedipine, metoprolol, and lisinopril, and the need for regular monitoring. I emphasized the continuation of aspirin and atorvastatin for coronary artery disease, with the LDL goal being less than 70 mg/dL. For GERD, we discussed continuing omeprazole, and for postlaminectomy syndrome, the continuation of narcotic pain medication with refills was confirmed. We also talked about the option of receiving the shingles vaccine, its effectiveness, and potential side effects. Patient Instructions - Continue taking Jardiance and Lantus as prescribed. - Monitor blood glucose levels twice daily. - Continue blood pressure medications: nifedipine, metoprolol, and lisinopril. - Take aspirin and atorvastatin as directed. - Use omeprazole for GERD management. - Continue narcotic pain medication as needed. - Consider receiving the shingles vaccine at a pharmacy. Medications: Refilled insulin glargine (Lantus Solostar U-100 Insulin) 10 units (0.1 mL) subcut QPM 15 mL 12RF E11.65 - Type 2 diabetes mellitus with hyperglycemia omeprazole 20 mg PO DAILY 90 caps 3RF 90 days J03.90 - Acute tonsillitis, unspecified oxycodone-acetaminophen 5-325 mg 1 tab PO TID PRN 75 tabs 0RF pain 30 days Z98.1 - Arthrodesis status blood sugar diagnostic (OneTouch Ultra Test strips) DIRECTED THREE TIMES A DAY 300 strips 3RF E11.65 - Type 2 diabetes mellitus with hyperglycemia Discontinued tirzepatide for 4 weeks Discontinued Reason: Insurance Denied 5 mg (0.5 mL) subcut QWEEK 30 days 2.5 mL 2RF E11.65 - Type 2 diabetes mellitus with hyperglycemia
[2025-03-09 13:24] VITALS: BP 110/66; PULSE 59; TEMP 36.3; O2SAT 98; BMI 24.4
== END 2025-03-09 14:10 | disposition home or self-care (01) ==
LOC: HO.HMCH 13:02
PROVIDERS: PCP Internal Medicine; Visit Provider Internal Medicine
DX: E11.65 Type 2 diabetes mellitus with hyperglycemia (principal); C67.9 Malignant neoplasm of bladder, unspecified; I25.10 Atherosclerotic heart disease of native coronary artery without angina pectoris; E78.00 Pure hypercholesterolemia, unspecified; K21.9 Gastro-esophageal reflux disease without esophagitis; M96.1 Postlaminectomy syndrome, not elsewhere classified; I10 Essential (primary) hypertension; L98.9 Disorder of the skin and subcutaneous tissue, unspecified

== ENCOUNTER → 2025-03-09 13:02 | Outpatient (BNVA) | payer OTHER, SELFPAY | PROVIDERS: PCP Internal Medicine; Visit Provider Internal Medicine | DX: E11.65 Type 2 diabetes mellitus with hyperglycemia (principal); I25.10 Atherosclerotic heart disease of native coronary artery without angina pectoris; E78.00 Pure hypercholesterolemia, unspecified; K21.9 Gastro-esophageal reflux disease without esophagitis; M96.1 Postlaminectomy syndrome, not elsewhere classified; I10 Essential (primary) hypertension; C67.9 Malignant neoplasm of bladder, unspecified; L98.9 Disorder of the skin and subcutaneous tissue, unspecified; J03.90 Acute tonsillitis, unspecified; Z98.1 Arthrodesis status | CPT/HCPCS: 96127; 99212 ==

== ENCOUNTER 2025-04-24 12:52 | Outpatient (AMB) | payer OTHER, SELFPAY ==
--- NOTE | 2025-04-24 12:52 | A.OFFVIS_ITS ---
Intake Visit Reasons: 6m/labs Intake Note: Patient is present for 6M F/U Urology Medication:NONE Antibiotic Allergy:NONE Blood Thinner:ASPIRIN Labs done 01/16/25 Hgb A1c :8.0 Dispatch Specialist Required: No Accompanied by: Self / Same As Patient Allergies metformin Adverse Reaction (Intermediate, Verified 04/24/25 12:53) stomach pain HPI Comments Details: Luan is a pleasant male. He is here for the following urologic issues - bladder cancer - erectile dysfunction At previous visit had discussed penile pump placement Had been given instructions regarding vacuum pump used to maximize prosthetic placement HbA1c remains at 8.9 07/18. Target 8.5 prosthetic placement. HbA1c 10/17 9.0, 01/17 8.0 Recommend penile vacuum device in order to maximize penile size for prosthetic May move ahead with penile prosthetic Bladder cancer - cysto prostatectomy 2016 Muscle invasive bladder cancer Cysto prostatectomy 2016 [facility] Anastomotic revision was required Imaging - October 2020 CT scan normal per patient Stoma good placement with adequate protrusion Therapeutic plan continue with surveillance Erectile dysfunction Previous assessment Non responsive to oral medication Non responsive to injectables Had previously decided on implantable prosthetic but was canceled secondary to high HbA1c HbA1c - 04/17 6.8% Can schedule for prosthetic placement [facility] Medical History (Updated 01/16/25 @ 12:56 by Yue Daley MD) Hypoglycemia unawareness associated with type 2 diabetes mellitus Diabetes type 2, uncontrolled Dyslipidemia Diabetes type 2, controlled Acid reflux Right knee pain Annual physical exam Type 2 diabetes mellitus with hyperglycemia Hypertension Diabetic retinopathy associated with type 2 diabetes mellitus Diabetic polyneuropathy associated with type 2 diabetes mellitus Diabetic nephropathy associated with type 2 diabetes mellitus Surgical History Hx of ileostomy History of esophagogastroduodenoscopy (EGD) Hx of colonoscopy History of lumbar fusion Hx of nephrostomy Hx of bladder cancer History of back surgery Family History Father No problems noted. Mother Myocardial infarct Social History Household Members: Spouse Housing: Apartment Alcohol intake: current Alcohol intake frequency: holidays/special occasions only Comment: 1 a month 2-4 shots Patient Tobacco Use Status: Former Tobacco user Tobacco use type: Cigarette Years Smoked: quit 2010 e-Cigarette/Vaping Use: Never Used Second Hand Smoke Exposure: Yes Substance Use Type: Marijuana service: No Current occupational status: disabled Cognitive needs: No Hearing needs: No Vision needs: No Physical Exam Const General: cooperative, healthy appearing, comfortable and no acute distress Neck Neck: Yes normal visual inspection Chest Chest palpation & inspection: normal inspection of the chest Resp Effort & Inspection: normal respiratory effort and able to speak in complete sentences GI Inspection: Yes normal to inspection Penis: normal penis and circumcised Meatus: meatus normal Scrotum: scrotum normal, cremasteric reflex present, no hydroceles and no inguinal hernias Testes: Testes normal and epididymides normal Assessment & Plan Assessment & Plan (1) Erectile dysfunction associated with type 2 diabetes mellitus: Code(s): E11.69 - Type 2 diabetes mellitus with other specified complication; N52.1 - Erectile dysfunction due to diseases classified elsewhere Category: Medical Plan Risks, benefits and alternatives to therapy were discussed. These include but are not limited to infection, bleeding, damage to local organs and tissues, need for further interventions. Anesthetic risks regarding cardiac arrhythmia, blood clots, and potential mortality were discussed. The patient understands the typical recovery time and the outpatient nature of the procedure. After consideration of these risks the patient gives full informed consent and they wish to move ahead with the procedure. Penile prosthetic Patient Instructions: This note is constructed using voice recognition software. While every effort has been made to ensure accuracy die sizer errors may have been included. Imaging studies, laboratory and physical exam results were discussed and reviewed in detail. No major barriers to patient understanding were identified. An opportunity to ask questions regarding the treatment plan was provided. All questions were answered. The patient expressed understanding and agreement with the above treatment plan. The patient is aware they should contact our office by phone for worsening of their current condition or the appearance of new urologic symptoms. Compliance is encouraged with any medications and followup testing that is ordered. It is a privilege to participate in the urologic care of your patient. If you have any questions or concerns regarding treatment for the above conditions, or other urologic issues, please do not hesitate to contact me. The office telephone contact is [phone]. Sincerely, Dr Abhay Wilcox MD, [facility] - Urology Compassionate Specialist Care for the Genitourinary System Coding Level of Care Code Est Pt Level 4 (61927) Diagnoses Erectile dysfunction associated with type 2 diabetes mellitus E11.69; N52.1
--- OUTSIDE RECORDS SUMMARY | 2025-04-24 13:59 | XMS_ITS | Clinical Summary ---
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 Bladder cancer ([facility]/HCC) 05/22/2016 Resolved Problems Problem Noted Date Diagnosed Date Resolved Date Urinary tract infection 06/01/2016 120 11/2023 Social History Tobacco Use Types Packs/Day Years [...] series) 2017 COVID-19 Vaccine (2 - season) 2025 10/23/2020 Influenza Vaccine (#1) 2025 , 05/26/2023, 05/25/2022, Additional history exists Tobacco Screening 07/18/2025 07/18/2024 [...] patient's age to complete this topic Meningococcal B Vaccine Aged Out No l onger eligible based on patient's age to complete [...] Recently Relevant to Health Maintenance Insurance [facility]
--- OUTSIDE RECORDS SUMMARY | 2025-04-24 13:59 | XMS_ITS | Encounter Summary ---
Author Organization [employer] Address [address] [place] [address] Care Team Providers Care Concrete Pointer Name Role Phone Unavailable Primary Care Provider Unavailabl e Encounter Details Date Type Department Care Team (Late st Contact Info) Description 11/27/2022 Abstract [facility] ADULT DENTAL [address] [place] [address] Barry Larios DMD [address] [place] [address] Social History Tobacco Use Types Packs/Day Years [...]
== END 2025-04-24 13:34 | disposition home or self-care (01) ==
LOC: HO.HUSH 12:52
PROVIDERS: PCP Internal Medicine; Visit Provider Urology
DX: E11.69 Type 2 diabetes mellitus with other specified complication (principal); N52.1 Erectile dysfunction due to diseases classified elsewhere
CPT/HCPCS: 99214

== ENCOUNTER → 2025-04-24 12:52 | Outpatient (BNVA) | payer OTHER, SELFPAY | PROVIDERS: PCP Internal Medicine; Visit Provider Urology | DX: E11.69 Type 2 diabetes mellitus with other specified complication (principal); N52.1 Erectile dysfunction due to diseases classified elsewhere | CPT/HCPCS: 99212 ==

== ENCOUNTER 2025-07-10 09:25 | Outpatient (REF) | payer OTHER, SELFPAY ==
--- OUTSIDE RECORDS SUMMARY | 2025-07-10 10:59 | XMS_ITS | Clinical Summary ---
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
--- OUTSIDE RECORDS SUMMARY | 2025-07-10 10:59 | XMS_ITS | Encounter Summary ---
Author Organization [employer] Address [address] [place] [address] Care Team Providers Care Sawmill Worker Name Role Phone Unavailable Primary Care Provider Unavailabl e Encounter Details Date Type Department Care Team (Late st Contact Info) Description 11/27/2022 Abstract [facility] ADULT DENTAL [address] [place] [address] Barry Larios DMD [address] [place] [address] Social History Tobacco Use Types Packs/Day Years [...]
== END 2025-07-10 09:26 | disposition home or self-care (01) ==
LOC: HO.LAB 09:25
PROVIDERS: Absent Provider Urology; PCP Internal Medicine; Visit Provider Internal Medicine
DX: E11.69 Type 2 diabetes mellitus with other specified complication (principal); N52.1 Erectile dysfunction due to diseases classified elsewhere
CPT/HCPCS: 36415; 83036